=== PATIENT | female | born 1960 | race African-American/Black ===

== ENCOUNTER 2016-11-01 10:45 | Inpatient (IN) | payer OTHER ==
[2016-11-01 11:20] VITALS: BMI 27.9
--- NOTE | 2016-11-01 13:16 | HP ---
CIWA Score - CIWA Score Nausea/Vomitin Muscle Tremors: 4-Moderate,w/Arms Extend Anxiety: 4-Mod. Anxious/Guarded Agitation: 3 Paroxysmal Sweats: 1-Minimal Palms Moist Orientation: 0-Oriented Tacttile Disturbances: 3-Moderate Itch/Numb/Burn Auditory Disturbances: 0-None Visual Disturbances: 0-None Headache: 0-None Present CIWA-Ar Total Score: 18 Admission ROS BHS - HPI Chief Complaint: DETOX TX FOR ALCOHOL DEPENDENCE Allergies/Adverse Reactions: Allergies Allergy/AdvReac Type Severity Reaction Status Date / Time No Known Allergies Allergy Verified 11/01/16 11:37 History of Present Illness: 56 Y/O AA/FEMALE WITH A HX OF ALCOHOL AND COCAINE DEPENDENCE SEEKING DETOX TX Exam Limitations: No Limitations - Ebola screening Have you traveled outside of the country in the last 21 days: No Have you had contact with anyone from an Ebola affected area: No Have you been sick,other than usual withdrawal symptoms: No Do you have a fever: No - Review of Systems Constitutional: Chills, Loss of Appetite, Night Sweats, Changes in sleep, Unintentional Wgt. Loss EENT: reports: Blurred Vision (WEARS GLASSES), Tearing, Nose Congestion, Dental Problems (MISSING TEETH) Respiratory: reports: Shortness of Breath (HX ASTHMA), Wheezing Cardiac: reports: Lightheadedness GI: reports: Diarrhea, Nausea, Poor Appetite, Vomiting, Abdominal cramping : reports: No Symptoms Reported Musculoskeletal: reports: Back Pain, Joint Pain, Muscle Pain Integumentary: reports: Dryness Neuro: reports: Headache, Tremors, Unsteady Gait, Dizziness Endocrine: reports: No Symptoms Reported Hematology: reports: Other (TAKES VIT D) Psychiatric: reports: Orientated x3, Anxious, Depressed Other Systems: Reviewed and Negative Patient History - Patient Medical History Hx Anemia: No Hx Asthma: Yes (ON SYMBICORT AND ALBUTERAL INHALERS) Hx Chronic Obstructive Pulmonary Disease (COPD): No Hx Cardiac Disorders: No Hx Hypertension: Yes (CLONIDINE 0.3 MG PO BID) Hx Hypercholesterolemia: No HX Cerebrovascular Accident: No Hx Seizures: No Hx Diabetes: No Hx Gastrointestinal Disorders: No Hx Genitourinary Disorders: No Hx Sexually Transmitted Disorders: No Hx Renal Disease (ESRD): No Hx Thyroid Disease: No Hx Human Immunodeficiency Virus (HIV): No (NEGATIVE HX;PROPHYLACTIC ATRIPLA BUT HAS NOT BEEN TAKING IT.) Hx Hepatitis C: No Hx Depression: Yes (ON MED) Hx Suicide Attempt: Yes (TO JUMP OFF ROOF 20 YRS AGO;DENIES CURRENT IDEATIONS) Hx Schizophrenia: No - Patient Surgical History Past Surgical History: Yes Hx Cholecystectomy: Yes (1988) Hx Orthopedic Surgery: Yes (R knee sx 2011) Anesthesia Reaction: No - PPD History Previous Implant?: Yes Documented Results: Negative w/o proof Implanted On Prior R Admission?: No PPD to be Administered?: Yes - Reproductive History Patient is a Female of Child Bearing Age (11 -55 yrs old): Yes (POST MENOPAUSAL WOMAN) LMP comment: AT 45 YRS OLD Patient : No - Smoking Cessation Smoking history: Current every day smoker Have you smoked in the past 12 months: Yes Aproximately how many cigarettes per day: 2 Hx Chewing Tobacco Use: No Initiated information on smoking cessation: Yes 'Breaking Loose' booklet given: 11/01/16 - Substance & Tx. History Hx Alcohol Use: Yes (RUM/NICOLLE/BEER) Hx Substance Use: Yes (COCAINE) Substance Use Type: Alcohol, Cocaine Hx Substance Use Treatment: Yes ([facility]) - Substances Abused Alcohol Route: Oral Frequency: Daily Amount used: 1 and 1/2 pints rum/ 3 24 oz beers Age of first use: 9 Date of Last Use: 10/31/16 Cocaine Route: Inhalation Frequency: Daily Amount used: $80-90 Age of first use: 24 Date of Last Use: 11/01/16 Family Disease History - Family Disease History Family Disease History: Diabetes: Mother (HTN;), Other: Mother, Brother (DRUG;ALCOHOL ADDICTION;IN REMISSION.) Admission Physical Exam [facility] - Vital Signs Vital Signs: Vital Signs - 24 hr 11/01/16 11:17 Temperature 97.3 F L Pulse Rate 86 Respiratory 20 Rate Blood Pressure 147/87 - Physical General Appearance: Yes: Moderate Distress, Irritable, Anxious HEENTM: Yes: EOMI, Normocephalic, JUSTICE, Pharynx Normal Respiratory: Yes: Chest Non-Tender, Lungs Clear, Normal Breath Sounds, No Respiratory Distress Neck: Yes: Supple, Trachea in good position Breast: Yes: Breast Exam Deferred Cardiology: Yes: Regular Rhythm, Regular Rate, S1, S2 Abdominal: Yes: Normal Bowel Sounds, Non Tender, Soft Genitourinary: Yes: Other (N/C) Back: Yes: Within Normal Limits Musculoskeletal: Yes: full range of Motion, Gait Steady Extremities: Yes: Normal Range of Motion, Non-Tender Neurological: Yes: solar manufacturer's representative II-XII NML intact, Fully Oriented, Alert Integumentary: Yes: Dry, Warm, Track [place] Lymphatic: Yes: Within Normal Limits - Diagnostic (1) Alcohol dependence with uncomplicated withdrawal Current Visit: Yes Status: Acute (2) Cocaine dependence, uncomplicated Current Visit: Yes Status: Acute (3) Hypertension Current Visit: Yes Status: Chronic Qualifiers: Hypertension type: essential hypertension Qualified Code(s): I10 - Essential (primary) hypertension (4) Asthma Current Visit: Yes Status: Chronic Qualifiers: Asthma severity: mild intermittent Asthma complication type: uncomplicated Qualified Code(s): J45.20 - Mild intermittent asthma, uncomplicated Cleared for Admission BHS - Detox or Rehab [facility] Level of Care: Medically Managed Detox Regimen/Protocol: Librium S Breath Alcohol Content Breath Alcohol Content: 0 Urine Pregancy Test - Result Urine Test Results: Negative- NO Line Present Urine Drug Screen - Results Drug Screen Negative: No Urine Drug Screen Results: SHIVA-Cocaine, BZO-Benzodiazepines
[2016-11-01] MEDS ORDERED: chlordiazePOXIDE HCL 25 MG CAPSULE PO PRN (13:26)
[2016-11-01] MEDS ORDERED: P-EPHED 60MG/TRIPROLIDI 2.5MG TABLET PO PRN (13:26)
[2016-11-01] MEDS ORDERED: MAGNESIUM CITRATE 300 ML BOTTLE PO PRN (13:26)
[2016-11-01] MEDS ORDERED: MAGNESIUM HYDROX 2400MG/30ML ORAL SUSPENSION 30 ML CUP PO PRN (13:26)
[2016-11-01] MEDS ORDERED: IBUPROFEN 400 MG TABLET (FP) PO PRN (13:26)
[2016-11-01] MEDS ORDERED: ACETAMINOPHEN 325 MG TABLET (FP) PO PRN (13:26)
[2016-11-01] MEDS ORDERED: NICOTINE POLACRILEX 2 MG GUM BUC PRN (13:26)
[2016-11-01] MEDS ORDERED: MAG HYDROX/AL HYDROX/SIMETH 30 ML UNIT-DOSE CUP PO PRN (13:26)
[2016-11-01] MEDS ORDERED: guaiFENesin/D-METHORPHAN HB 10 ML UNIT-DOSE CUPS PO PRN (13:26)
[2016-11-01] MEDS ORDERED: LOPERAMIDE HCL 2 MG CAPSULE PO PRN (13:26)
[2016-11-01] MEDS ORDERED: MENTHOL/PHENOL 1 EACH UD MM PRN (13:26)
[2016-11-01] MEDS ORDERED: diphenhydrAMINE HCL 50 MG CAPSULE PO PRN (13:26)
[2016-11-01] MEDS ORDERED: hydrOXYzine PAMOATE 25 MG CAPSULE (FP) PO PRN (13:26)
[2016-11-01] MEDS ORDERED: COLLOIDAL OATMEAL 1 BAR EACH TP PRN (13:29)
[2016-11-01] MEDS ORDERED: chlordiazePOXIDE HCL 25 MG CAPSULE PO ONE (14:07)
[2016-11-01] MEDS: NICOTINE 14 MG/24 HOURS TOPICAL PATCH TD SCH (15:07)
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
[2016-11-01] MEDS: chlordiazePOXIDE HCL 25 MG CAPSULE PO SCH ×2 (17:33→22:11)
[2016-11-01 18:45] LABS: HIV 1 & 2 AB NEGATIVE; HIV 1 AGp24 NEGATIVE
[2016-11-01 19:14] LABS: URINE APPEARANCE CLOUDY; URINE BILIRUBIN NEGATIVE (NEGATIVE); URINE COLOR YELLOW; URINE GLUCOSE (UA) NEGATIVE (NEGATIVE); URINE KETONE NEGATIVE (NEGATIVE); URINE NITRITE NEGATIVE (NEGATIVE); URINE PROTEIN NEGATIVE (NEGATIVE); URINE UROBILINOGEN NEGATIVE E.U./dl (0.2-1.0)
[2016-11-01 19:18] LABS: URINE BLOOD 1+ (NEGATIVE); URINE LEUK ESTERASE 1+ (NEGATIVE)
[2016-11-01] MEDS ORDERED: cloNIDine HCL 0.1 MG TABLET PO SCH (22:00)
[2016-11-01] MEDS ORDERED: ZOLPIDEM TARTRATE 10 MG TABLET (PARK CARE ONLY) PO PRN (22:00)
[2016-11-01] MEDS: cloNIDine HCL 0.1 MG TABLET PO SCH (22:10)
[2016-11-01] MEDS: MONTELUKAST NA 10 MG TABLET PO SCH (22:11)
[2016-11-01] MEDS: BUDESONIDE/FORMETEROL FUMARATE 160/4.5 mcg INHALER IH SCH (22:11)
[2016-11-01] MEDS: THIAMINE HCL 100 MG TABLET (FP) PO SCH (22:12)
[2016-11-01] MEDS: OLANZapine 10 MG TABLET PO SCH (22:12)
[2016-11-01] MEDS: ALBUTEROL SO4 6.7 GM HFA INHALER IH PRN (22:13)
[2016-11-02] MEDS: chlordiazePOXIDE HCL 25 MG CAPSULE PO SCH ×4 (07:14→22:29)
[2016-11-02] MEDS ORDERED: COLLOIDAL OATMEAL 1 BAR EACH TP SCH (10:00)
[2016-11-02 10:02] LABS: MCH 31.1 pg (25.7-33.7); MCHC 33.3 g/dl (32.0-36.0); MEAN CELL VOLUME 93.5 fl (80-96); MEAN PLT VOLUME 9.6 fl (7.5-11.1); PLATELET COUNT 227 K/MM3 (134-434); RDW 15.5 % (11.6-15.6); WHITE BLOOD COUNT 7.7 K/mm3 (4.0-10.0)
[2016-11-02 10:39] LABS: ALBUMIN 3.6 g/dl (3.4-5.0); ALK PHOS 103 U/L (45-117); ANION GAP 9 (8-16); BILIRUBIN,TOTAL 0.6 mg/dL (0.2-1.0); CALCIUM 8.9 mg/dL (8.5-10.1); CO2 27 mmol/L (21-32); COCKROFT - GAULT 94.4605; CREATININE 0.8 mg/dL (0.55-1.02); GLUCOSE,RANDOM 78 mg/dL (74-106); SGOT/AST 39 U/L (15-37); SGPT/ALT 35 U/L (12-78); TOT PROT 7.2 g/dl (6.4-8.2)
--- NOTE | 2016-11-02 10:42 | PN ---
S CIWA - CIWA Score Nausea/Vomitin Muscle Tremors: 2 Anxiety: 3 Agitation: 2 Paroxysmal Sweats: 3 Orientation: 0-Oriented Tacttile Disturbances: 1-Very Mild Itch/Numbness Auditory Disturbances: 0-None Visual Disturbances: 0-None Headache: 0-None Present CIWA-Ar Total Score: 13 S Progress Note (SOAP) Subjective: INTERRUPTED SLEEP, SWEATS, TIRED Vital Signs Temperature 97.3 F L 11/02/16 06:08 Pulse Rate 74 11/02/16 06:08 Respiratory Rate 18 11/02/16 06:08 Blood Pressure 102/69 11/02/16 06:08 O2 Sat by Pulse Oximetry (%) Laboratory Tests 11/01/16 11/01/16 11/02/16 12:15 15:00 06:00 WBC 7.7 RBC 4.38 Hgb 13.6 Hct 41.0 MCV 93.5 MCHC 33.3 RDW 15.5 Plt Count 227 MPV 9.6 Sodium Potassium Chloride Urine Color Yellow Urine Appearance Cloudy Urine pH 5.0 Ur Specific [place] 1.015 Urine Protein Negative Urine Glucose (UA) Negative Urine Ketones Negative Urine Blood 1+ H Urine Nitrite Negative Urine Bilirubin Negative Urine Urobilinogen Negative Ur Leukocyte Esterase 1+ H HIV 1&2 Antibody Screen Negative HIV P24 Antigen Negative 11/02/16 06:00 WBC RBC Hgb Hct MCV MCHC RDW Plt Count MPV Sodium 146 H Potassium 4.2 Chloride 110 H Urine Color Urine Appearance Urine pH Ur Specific [place] Urine Protein Urine Glucose (UA) Urine Ketones Urine Blood Urine Nitrite Urine Bilirubin Urine Urobilinogen Ur Leukocyte Esterase HIV 1&2 Antibody Screen HIV P24 Antigen PT AOX3 IN NAD AMBUALTING Objective: 11/02/16 10:40 Vital Signs Temperature 97.3 F L 11/02/16 06:08 Pulse Rate 74 11/02/16 06:08 Respiratory Rate 18 11/02/16 06:08 Blood Pressure 102/69 11/02/16 06:08 O2 Sat by Pulse Oximetry (%) Laboratory Tests 11/01/16 11/01/16 11/02/16 12:15 15:00 06:00 WBC 7.7 RBC 4.38 Hgb 13.6 Hct 41.0 MCV 93.5 MCHC 33.3 RDW 15.5 Plt Count 227 MPV 9.6 Sodium Potassium Chloride Urine Color Yellow Urine Appearance Cloudy Urine pH 5.0 Ur Specific [place] 1.015 Urine Protein Negative Urine Glucose (UA) Negative Urine Ketones Negative Urine Blood 1+ H Urine Nitrite Negative Urine Bilirubin Negative Urine Urobilinogen Negative Ur Leukocyte Esterase 1+ H HIV 1&2 Antibody Screen Negative HIV P24 Antigen Negative 11/02/16 06:00 WBC RBC Hgb Hct MCV MCHC RDW Plt Count MPV Sodium 146 H Potassium 4.2 Chloride 110 H Urine Color Urine Appearance Urine pH Ur Specific [place] Urine Protein Urine Glucose (UA) Urine Ketones Urine Blood Urine Nitrite Urine Bilirubin Urine Urobilinogen Ur Leukocyte Esterase HIV 1&2 Antibody Screen HIV P24 Antigen WITHDRAWAL SX'S Plan: CONT. DETOX INCREASE FLUIDS
[2016-11-02] MEDS: BUDESONIDE/FORMETEROL FUMARATE 160/4.5 mcg INHALER IH SCH ×2 (11:01→22:28)
[2016-11-02] MEDS: cloNIDine HCL 0.1 MG TABLET PO SCH ×2 (11:01→22:30)
[2016-11-02] MEDS: SERTRALINE HCL 50 MG TABLET (FP) PO SCH (11:01)
[2016-11-02] MEDS: PRENATAL VITAMINS W/ FOLIC ACID TABLET (FP) PO SCH (11:01)
[2016-11-02] MEDS: NICOTINE 14 MG/24 HOURS TOPICAL PATCH TD SCH (11:01)
--- NOTE | 2016-11-02 11:22 | EKG ---
Test Reason : Blood Pressure : / mmHG Vent. Rate : 072 BPM Atrial Rate : 072 BPM P-R Int : 152 ms QRS Dur : 082 ms QT Int : 406 ms P-R-T Axes : 054 070 042 degrees QTc Int : 444 ms NORMAL SINUS RHYTHM NORMAL ECG NO PREVIOUS ECGS AVAILABLE Confirmed by YOGESH HWANG, LUIS ([id number]) on 11/02/2016 11:21:55 AM Referred By: Confirmed By:LUIS ZUÑIGA MD
[2016-11-02 15:15] LABS: URINE MUCUS FEW; URINE RBC 3 /hpf (0-3); URINE WBC 22 (3-5)
[2016-11-02 15:31] LABS: CALCIUM OXALATE CRYSTALS MODERATE /hpf (NONE SEEN)
[2016-11-02] MEDS: OLANZapine 10 MG TABLET PO SCH (22:29)
[2016-11-02] MEDS: MONTELUKAST NA 10 MG TABLET PO SCH (22:29)
[2016-11-02] MEDS: THIAMINE HCL 100 MG TABLET (FP) PO SCH (22:29)
[2016-11-02] MEDS: ALBUTEROL SO4 6.7 GM HFA INHALER IH PRN (22:31)
[2016-11-03] MEDS: chlordiazePOXIDE HCL 25 MG CAPSULE PO SCH ×2 (05:43→10:20)
[2016-11-03 06:15] LABS: SICKLE CELL SCREEN NEGATIVE (NEGATIVE)
[2016-11-03] MEDS: cloNIDine HCL 0.1 MG TABLET PO SCH ×2 (10:19→22:34)
[2016-11-03] MEDS: SERTRALINE HCL 50 MG TABLET (FP) PO SCH (10:19)
[2016-11-03] MEDS: BUDESONIDE/FORMETEROL FUMARATE 160/4.5 mcg INHALER IH SCH ×2 (10:20→22:35)
[2016-11-03] MEDS: PRENATAL VITAMINS W/ FOLIC ACID TABLET (FP) PO SCH (10:20)
[2016-11-03] MEDS: NICOTINE 14 MG/24 HOURS TOPICAL PATCH TD SCH (10:22)
[2016-11-03] MEDS: chlordiazePOXIDE 5 MG CAPSULE PO SCH ×2 (17:53→22:37)
[2016-11-03] MEDS: OLANZapine 10 MG TABLET PO SCH (22:34)
[2016-11-03] MEDS: MONTELUKAST NA 10 MG TABLET PO SCH (22:35)
[2016-11-03] MEDS: THIAMINE HCL 100 MG TABLET (FP) PO SCH (22:35)
[2016-11-04] MEDS: chlordiazePOXIDE 5 MG CAPSULE PO SCH ×2 (05:32→11:06)
--- NOTE | 2016-11-04 10:18 | PN ---
S CIWA - CIWA Score Nausea/Vomitin-No Nausea/No Vomiting Muscle Tremors: 4-Moderate,w/Arms Extend Anxiety: 3 Agitation: 3 Paroxysmal Sweats: 2 Orientation: 0-Oriented Tacttile Disturbances: 0-None Auditory Disturbances: 0-None Visual Disturbances: 0-None Headache: 0-None Present CIWA-Ar Total Score: 12 BHS Progress Note (SOAP) Subjective: sweats shakes body aches interrupted sleep Objective: Vital Signs - 24 hr 11/03/16 11/03/16 11/03/16 10:53 14:25 18:15 Temperature 97 F L 98 F Pulse Rate 71 71 80 Respiratory 18 18 16 Rate Blood Pressure 122/84 107/67 115/60 11/03/16 11/04/16 11/04/16 21:56 00:30 07:11 Temperature 97.9 F 98.0 F Pulse Rate 73 69 Respiratory 16 18 16 Rate Blood Pressure 113/61 107/73 awake/alert ambulating no acute distress Assessment: 11/03/16 10:17 withdrawal sx Plan: continue detox
--- NOTE | 2016-11-04 10:21 | PN ---
BHS Progress Note (SOAP) Subjective: achy legs sweats Objective: 11/04/16 10:20 Vital Signs Temperature 98.0 F 11/04/16 07:11 Pulse Rate 69 11/04/16 07:11 Respiratory Rate 16 11/04/16 07:11 Blood Pressure 107/73 11/04/16 07:11 O2 Sat by Pulse Oximetry (%) awake/alert ambulating no acute distress Assessment: 11/04/16 10:21 withdrawal sx Plan: continue detox increase fluids motrin/tylenol prn d/c in am
[2016-11-04] MEDS: SERTRALINE HCL 50 MG TABLET (FP) PO SCH (11:06)
[2016-11-04] MEDS: BUDESONIDE/FORMETEROL FUMARATE 160/4.5 mcg INHALER IH SCH ×2 (11:06→22:24)
[2016-11-04] MEDS: PRENATAL VITAMINS W/ FOLIC ACID TABLET (FP) PO SCH (11:06)
[2016-11-04] MEDS: cloNIDine HCL 0.1 MG TABLET PO SCH ×2 (11:07→22:24)
[2016-11-04] MEDS: NICOTINE 14 MG/24 HOURS TOPICAL PATCH TD SCH (11:07)
[2016-11-04] MEDS: chlordiazePOXIDE HCL 10 MG CAPSULE PO SCH ×2 (17:09→22:24)
[2016-11-04] MEDS: MONTELUKAST NA 10 MG TABLET PO SCH (22:24)
[2016-11-04] MEDS: OLANZapine 10 MG TABLET PO SCH (22:25)
[2016-11-04] MEDS: THIAMINE HCL 100 MG TABLET (FP) PO SCH (22:25)
[2016-11-05] MEDS: chlordiazePOXIDE HCL 10 MG CAPSULE PO SCH (05:33)
--- NOTE | 2016-11-05 08:36 | DS ---
[facility] Detox Discharge Summary Admission Date: 11/01/16 Discharge Date: 11/05/16 - History Present History: Alcohol Dependence, Cocaine Dependence - Physical Exam Results Vital Signs: Vital Signs Temperature 97.7 F 11/05/16 06:00 Pulse Rate 83 11/05/16 06:00 Respiratory Rate 18 11/05/16 06:00 Blood Pressure 125/73 11/05/16 06:00 O2 Sat by Pulse Oximetry (%) - Treatment Hospital Course: Detox Protocol Followed, Detoxed Safely, Responded well, Discharged Condition Good, Rehab Referral Accepted - Medication Discharge Medications: Ambulatory Orders Albuterol Sulfate Inhaler - [Ventolin Hfa Inhaler -] 2 inh PO Q4H 11/01/16 Budesonide/Formeterol Fumarate [SYMBICORT 160/4.5mcg -] 2 inh PO BID 11/01/16 Clonidine HCl [Catapres -] 0.3 mg PO BID 11/01/16 Montelukast Na [Singulair -] 10 mg PO HS 11/01/16 Olanzapine [Zyprexa -] 10 mg PO DAILY 11/01/16 Sertraline HCl [Zoloft -] 100 mg PO DAILY 11/01/16 Zolpidem Tartrate [Ambien] 10 mg PO HS 11/01/16 - Diagnosis (1) Alcohol dependence with uncomplicated withdrawal Current Visit: Yes Status: Chronic (2) Cocaine dependence, uncomplicated Current Visit: Yes Status: Chronic (3) Insomnia Current Visit: Yes Status: Chronic (4) Nicotine dependence Current Visit: Yes Status: Chronic Qualifiers: Nicotine product type: cigarettes Substance use status: uncomplicated Qualified Code(s): F17.210 - Nicotine dependence, cigarettes, uncomplicated (5) Asthma Current Visit: Yes Status: Chronic Qualifiers: Asthma severity: mild intermittent Asthma complication type: uncomplicated Qualified Code(s): J45.20 - Mild intermittent asthma, uncomplicated (6) Hypertension Current Visit: Yes Status: Chronic Qualifiers: Hypertension type: essential hypertension Qualified Code(s): I10 - Essential (primary) hypertension (7) Schizophrenia Current Visit: Yes Status: Chronic - AMA Did Patient Leave Against Medical Advice: No
[2016-11-05] MEDS: BUDESONIDE/FORMETEROL FUMARATE 160/4.5 mcg INHALER IH SCH (10:23)
[2016-11-05] MEDS: PRENATAL VITAMINS W/ FOLIC ACID TABLET (FP) PO SCH (10:23)
[2016-11-05] MEDS: cloNIDine HCL 0.1 MG TABLET PO SCH (10:23)
[2016-11-05] MEDS: SERTRALINE HCL 50 MG TABLET (FP) PO SCH (10:23)
[2016-11-05 10:59] VITALS: BP 134/85; PULSE 87; TEMP 98.2
== END 2016-11-05 11:08 | disposition other institution (70) | DRG 774 ==
LOC: YASAS 10:45 → Y6N 14:03
PROVIDERS: ADMIT Internal Medicine Addiction Medicine; ATTEND Internal Medicine Addiction Medicine
PROC: HZ2ZZZZ Detoxification Services for Substance Abuse Treatment (ICD-10-PCS; principal; 2016-11-05)
DX: F10.230 Alcohol dependence with withdrawal, uncomplicated (principal); F14.20 Cocaine dependence, uncomplicated; F17.210 Nicotine dependence, cigarettes, uncomplicated; F20.9 Schizophrenia, unspecified; G47.00 Insomnia, unspecified; I10 Essential (primary) hypertension; J45.20 Mild intermittent asthma, uncomplicated
CPT/HCPCS: 36415; 80053; 81003; 81015; 85027; 85660; 86593; 87389; 93005; 93010

== ENCOUNTER 2016-11-05 11:18 | Inpatient (IN) | payer OTHER ==
[2016-11-05 11:50] VITALS: BMI 28.6
[2016-11-05] MEDS ORDERED: P-EPHED 60MG/TRIPROLIDI 2.5MG TABLET PO PRN (13:33)
[2016-11-05] MEDS ORDERED: guaiFENesin/D-METHORPHAN HB 10 ML UNIT-DOSE CUPS PO PRN (13:33)
[2016-11-05] MEDS ORDERED: diphenhydrAMINE HCL 50 MG CAPSULE PO PRN (13:33)
[2016-11-05] MEDS ORDERED: hydrOXYzine PAMOATE 50 MG CAPSULE (FP) PO PRN (13:33)
[2016-11-05] MEDS ORDERED: MAGNESIUM CITRATE 300 ML BOTTLE PO PRN (13:33)
[2016-11-05] MEDS ORDERED: LOPERAMIDE HCL 2 MG CAPSULE PO PRN (13:33)
[2016-11-05] MEDS ORDERED: MENTHOL/PHENOL 1 EACH UD MM PRN (13:33)
[2016-11-05] MEDS ORDERED: ACETAMINOPHEN 325 MG TABLET (FP) PO PRN (13:33)
[2016-11-05] MEDS ORDERED: IBUPROFEN 400 MG TABLET (FP) PO PRN (13:33)
[2016-11-05] MEDS ORDERED: MAGNESIUM HYDROX 2400MG/30ML ORAL SUSPENSION 30 ML CUP PO PRN (13:33)
[2016-11-05] MEDS ORDERED: MAG HYDROX/AL HYDROX/SIMETH 30 ML UNIT-DOSE CUP PO PRN (13:33)
[2016-11-05] MEDS ORDERED: ALBUTEROL SO4 6.7 GM HFA INHALER IH PRN (13:39)
--- NOTE | 2016-11-05 13:39 | HP ---
DEDE HWANG Rehab Assess/Revision - Admission History Admitted to Rehab from: [facility] Date of Admission to Rehab: 11/05/16 - Vital signs Vital Signs: Vital Signs Period Temp Pulse Resp BP Sys/[place] Pulse Ox Last 24 Hr 98.1 F 86 20 93/62 - Findings Detox History & Physical reviewed: Yes Concur with findings: Yes Comments/Additional Findings: for rehab as protocol
[2016-11-05] MEDS ORDERED: TUBERCULIN PPD 5 TU/0.1ML VIAL ID ONE (13:45)
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
[2016-11-05] MEDS ORDERED: PT OWN MED DRAWER 7, Y5N ONE (20:11)
[2016-11-05] MEDS: BUDESONIDE/FORMETEROL FUMARATE 160/4.5 mcg INHALER IH SCH (21:33)
[2016-11-05] MEDS: QUEtiapine FUMARATE 25 MG TABLET (FP) PO SCH (21:34)
[2016-11-05] MEDS: cloNIDine HCL 0.1 MG TABLET PO SCH (21:34)
[2016-11-05] MEDS: MONTELUKAST NA 10 MG TABLET PO SCH (21:34)
[2016-11-05] MEDS: THIAMINE HCL 100 MG TABLET (FP) PO SCH (21:34)
[2016-11-05] MEDS: OLANZapine 10 MG TABLET PO SCH (21:34)
[2016-11-06] MEDS ORDERED: PT OWN MED DRAWER 7, Y5N ONE (08:38)
[2016-11-06] MEDS: PRENATAL VITAMINS W/ FOLIC ACID TABLET (FP) PO SCH (09:40)
[2016-11-06] MEDS: BUDESONIDE/FORMETEROL FUMARATE 160/4.5 mcg INHALER IH SCH ×2 (09:41→21:24)
[2016-11-06] MEDS: SERTRALINE HCL 50 MG TABLET (FP) PO SCH (09:41)
[2016-11-06] MEDS: cloNIDine HCL 0.1 MG TABLET PO SCH ×2 (09:41→21:23)
[2016-11-06] MEDS: QUEtiapine FUMARATE 25 MG TABLET (FP) PO SCH (21:23)
[2016-11-06] MEDS: THIAMINE HCL 100 MG TABLET (FP) PO SCH (21:23)
[2016-11-06] MEDS: OLANZapine 10 MG TABLET PO SCH (21:23)
[2016-11-06] MEDS: MONTELUKAST NA 10 MG TABLET PO SCH (21:23)
[2016-11-07] MEDS: PRENATAL VITAMINS W/ FOLIC ACID TABLET (FP) PO SCH (09:43)
[2016-11-07] MEDS: BUDESONIDE/FORMETEROL FUMARATE 160/4.5 mcg INHALER IH SCH ×2 (09:43→21:29)
[2016-11-07] MEDS: SERTRALINE HCL 50 MG TABLET (FP) PO SCH (09:43)
[2016-11-07] MEDS: cloNIDine HCL 0.1 MG TABLET PO SCH ×2 (09:45→21:28)
[2016-11-07] MEDS: QUEtiapine FUMARATE 25 MG TABLET (FP) PO SCH (21:28)
[2016-11-07] MEDS: OLANZapine 10 MG TABLET PO SCH (21:28)
[2016-11-07] MEDS: THIAMINE HCL 100 MG TABLET (FP) PO SCH (21:28)
[2016-11-07] MEDS: MONTELUKAST NA 10 MG TABLET PO SCH (21:28)
[2016-11-08] MEDS ORDERED: PT OWN MED DRAWER 7, Y5N ONE (08:09)
[2016-11-08] MEDS: cloNIDine HCL 0.1 MG TABLET PO SCH ×2 (09:39→21:25)
[2016-11-08] MEDS: PRENATAL VITAMINS W/ FOLIC ACID TABLET (FP) PO SCH (09:39)
[2016-11-08] MEDS: BUDESONIDE/FORMETEROL FUMARATE 160/4.5 mcg INHALER IH SCH ×2 (09:39→21:26)
[2016-11-08] MEDS: SERTRALINE HCL 50 MG TABLET (FP) PO SCH (09:39)
[2016-11-08] MEDS ORDERED: IBUPROFEN 400 MG TABLET (FP) PO PRN (14:19)
--- NOTE | 2016-11-08 14:22 | PN ---
S Progress Note Note: Pt. fell last night,did not tell staff until today.C/O pain lt. side of abd. Vital Signs - 8 hr 11/08/16 11/08/16 11/08/16 07:09 08:30 09:40 Temperature 97.9 F 97.9 F Pulse Rate 76 76 79 Respiratory 18 18 Rate Blood Pressure 114/76 114/76 104/66 11/08/16 11/08/16 10:30 12:41 Temperature 98 F 97 F L Pulse Rate 87 80 Respiratory 19 18 Rate Blood Pressure 115/69 100/64 Exam : no signs of injury noted. P : KUB & motrin for pain
[2016-11-08] MEDS: LIDOCAINE 5% TOPICAL PATCH TP SCH (15:33)
[2016-11-08] MEDS: MONTELUKAST NA 10 MG TABLET PO SCH (21:25)
[2016-11-08] MEDS: QUEtiapine FUMARATE 25 MG TABLET (FP) PO SCH (21:25)
[2016-11-08] MEDS: THIAMINE HCL 100 MG TABLET (FP) PO SCH (21:25)
[2016-11-08] MEDS: OLANZapine 10 MG TABLET PO SCH (21:25)
[2016-11-09] MEDS: PRENATAL VITAMINS W/ FOLIC ACID TABLET (FP) PO SCH (10:07)
[2016-11-09] MEDS: cloNIDine HCL 0.1 MG TABLET PO SCH ×2 (10:07→21:13)
[2016-11-09] MEDS: LIDOCAINE 5% TOPICAL PATCH TP SCH (10:07)
[2016-11-09] MEDS: SERTRALINE HCL 50 MG TABLET (FP) PO SCH (10:07)
[2016-11-09] MEDS: BUDESONIDE/FORMETEROL FUMARATE 160/4.5 mcg INHALER IH SCH ×2 (10:08→21:13)
[2016-11-09] MEDS ORDERED: PT OWN MED DRAWER 7, Y5N ONE (20:31)
[2016-11-09] MEDS: MONTELUKAST NA 10 MG TABLET PO SCH (21:13)
[2016-11-09] MEDS: THIAMINE HCL 100 MG TABLET (FP) PO SCH (21:13)
[2016-11-09] MEDS: QUEtiapine FUMARATE 25 MG TABLET (FP) PO SCH (21:13)
[2016-11-09] MEDS: OLANZapine 10 MG TABLET PO SCH (21:13)
[2016-11-10] MEDS ORDERED: PT OWN MED DRAWER 7, Y5N ONE (08:36)
[2016-11-10] MEDS: cloNIDine HCL 0.1 MG TABLET PO SCH ×2 (10:04→21:16)
[2016-11-10] MEDS: BUDESONIDE/FORMETEROL FUMARATE 160/4.5 mcg INHALER IH SCH ×2 (10:04→21:17)
[2016-11-10] MEDS: LIDOCAINE 5% TOPICAL PATCH TP SCH (10:04)
[2016-11-10] MEDS: SERTRALINE HCL 50 MG TABLET (FP) PO SCH (10:04)
[2016-11-10] MEDS: PRENATAL VITAMINS W/ FOLIC ACID TABLET (FP) PO SCH (10:04)
[2016-11-10] MEDS ORDERED: COLLOIDAL OATMEAL 1 BAR EACH TP PRN (12:06)
--- NOTE | 2016-11-10 15:56 | PN ---
Psychiatric Progress Note Vital Signs: Vital Signs Period Temp Pulse Resp BP Sys/[place] Pulse Ox Last 24 Hr 98.0 F 82-86 16-18 112-122/70-79 Date of Session: 11/10/16 Chief Complaint:: Progress update HPI: Patient addressed Alcohol dependence ,Cocaine dependence comorbid with Schizophrenia. ROS: Significant for BA,HTN. Current Medications: Active Medications Generic Name Dose Route Start Last Admin Trade Name Freq PRN Reason Stop Dose Admin Acamprosate 666 mg 11/10/16 16:00 Campral - PO TID CRISTINA Acetaminophen 650 mg 11/05/16 13:33 11/07/16 09:45 Tylenol - PO 650 mg Q4H PRN Administration FEVER OR PAIN Al Hydroxide/Mg Hydroxide 30 ml 11/05/16 13:33 Mylanta Oral Suspension - PO Q6H PRN DYSPEPSIA Albuterol Sulfate 2 puff 11/05/16 13:39 Ventolin Hfa Inhaler - IH Q4H PRN ASTHMA Budesonide/Formoterol Fumarate 2 puff 11/05/16 22:00 11/10/16 10:04 Symbicort 160/4.5mcg - IH 2 puff BID CRISTINA Administration Clonidine 0.1 mg 11/05/16 22:00 11/10/16 10:04 Catapres - PO 0.1 mg BID CRISTINA Administration Colloidal Oatmeal 1 applic 11/10/16 12:06 11/10/16 12:44 Aveeno Soap - TP 1 applic DAILY PRN Administration HYGEINE Diphenhydramine HCl 50 mg 11/05/16 13:33 Benadryl - PO HSMR1 PRN FOR ITCHING Eucalyptus/Menthol/Phenol/Sorbitol 1 each 11/05/16 13:33 Cepastat Lozenge - MM Q4H PRN SORE THROAT Guaifenesin 10 ml 11/05/16 13:33 Robitussin Dm - PO Q6H PRN COUGH Hydroxyzine Pamoate 50 mg 11/05/16 13:33 Vistaril - PO Q4H PRN AGITATION Ibuprofen 800 mg 11/08/16 14:19 11/09/16 21:38 Motrin - PO 800 mg Q6H PRN Administration PAIN Lidocaine 1 patch 11/08/16 14:30 11/10/16 10:04 Lidoderm Patch - TP 1 patch DAILY CRISTINA Administration Loperamide HCl 4 mg 11/05/16 13:33 Imodium - PO Q6H PRN DIARRHEA Magnesium Hydroxide 30 ml 11/05/16 13:33 Milk Of Magnesia - PO DAILY PRN CONSTIPATION Montelukast Sodium 10 mg 11/05/16 22:00 11/09/16 21:13 Singulair - PO 10 mg HS CRISTINA Administration Olanzapine 10 mg 11/05/16 22:00 11/09/16 21:13 Zyprexa - PO 10 mg HS CRISTINA Administration Multivit/Folic Acid/Iron 1 tab 11/06/16 10:00 11/10/16 10:04 Vitamins ([facility]jr) - PO 1 tab DAILY CRISTINA Administration Pseudoephedrine/Triprolidine 1 combo 11/05/16 13:33 Actifed - PO TID PRN NASAL CONGESTION Quetiapine Fumarate 25 mg 11/05/16 22:00 11/09/16 21:13 Seroquel - PO 25 mg HS CRISTINA Administration Sertraline HCl 100 mg 11/06/16 10:00 11/10/16 10:04 Zoloft - PO 100 mg DAILY CRISTINA Administration Thiamine HCl 100 mg 11/05/16 22:00 11/09/16 21:13 Vitamin B1 - PO 100 mg HS CRISTINA Administration Current Side Effect: No Lab tests ordered: No Lab tests reviewed: Yes Provider note:: Chart was revuewed,patient was evaluated,treatment plan including medication management has been discussed with the patient.Patient reports good response to Zoloft 100 mg po daily and Seroquel 25 mg po hs. Properties of Campral has been discussed with the patient including side eefcets profile and benefits.Patient agrees to start Campral 333 mg 2 tab po tid. Supportive therapy,psychoeducation has been provided. Total face to face time:: 30 Mental Status Exam - Mental Status Exam Alert and Oriented to: Time, Place, Person Cognitive Function: Grossly Intact Patient Appearance: Well Groomed Mood: Euthymic Affect: Mood Congruent Patient Behavior: Cooperative Speech Pattern: Clear Voice Loudness: Normal Thought Process: Goal Oriented Thought Disorder: Not Present Hallucinations: Denies Suicidal Ideation: Denies Homicidal Ideation: Denies Insight/Judgement: Fair Sleep: Fair Appetite: Good Muscle strength/Tone: Normal Gait/Station: Normal Psychiatric Treatment Plan - Problem List (1) Asthma Current Visit: Yes Qualifiers: Asthma severity: mild intermittent Asthma complication type: uncomplicated Qualified Code(s): J45.20 - Mild intermittent asthma, uncomplicated (2) Cocaine dependence, uncomplicated Current Visit: Yes (3) Hypertension Current Visit: Yes Qualifiers: Hypertension type: essential hypertension Qualified Code(s): I10 - Essential (primary) hypertension (4) Nicotine dependence Current Visit: Yes Qualifiers: Nicotine product type: cigarettes Substance use status: uncomplicated Qualified Code(s): F17.210 - Nicotine dependence, cigarettes, uncomplicated (5) Schizophrenia Current Visit: Yes (6) Alcohol dependence Current Visit: Yes
[2016-11-10] MEDS: ACAMPROSATE CALCIUM 333 MG TABLET.DR PO SCH ×2 (17:42→21:16)
[2016-11-10] MEDS: THIAMINE HCL 100 MG TABLET (FP) PO SCH (21:15)
[2016-11-10] MEDS: OLANZapine 10 MG TABLET PO SCH (21:16)
[2016-11-10] MEDS: QUEtiapine FUMARATE 25 MG TABLET (FP) PO SCH (21:16)
[2016-11-10] MEDS: MONTELUKAST NA 10 MG TABLET PO SCH (21:16)
[2016-11-11] MEDS: ACAMPROSATE CALCIUM 333 MG TABLET.DR PO SCH ×3 (06:08→21:23)
[2016-11-11] MEDS: LIDOCAINE 5% TOPICAL PATCH TP SCH (09:55)
[2016-11-11] MEDS: cloNIDine HCL 0.1 MG TABLET PO SCH ×2 (09:56→21:23)
[2016-11-11] MEDS: PRENATAL VITAMINS W/ FOLIC ACID TABLET (FP) PO SCH (09:56)
[2016-11-11] MEDS: SERTRALINE HCL 50 MG TABLET (FP) PO SCH (09:56)
[2016-11-11] MEDS: BUDESONIDE/FORMETEROL FUMARATE 160/4.5 mcg INHALER IH SCH ×2 (09:57→21:24)
[2016-11-11] MEDS ORDERED: PT OWN MED DRAWER 7, Y5N ONE (09:57)
[2016-11-11] MEDS: OLANZapine 10 MG TABLET PO SCH (21:23)
[2016-11-11] MEDS: QUEtiapine FUMARATE 25 MG TABLET (FP) PO SCH (21:23)
[2016-11-11] MEDS: MONTELUKAST NA 10 MG TABLET PO SCH (21:23)
[2016-11-11] MEDS: THIAMINE HCL 100 MG TABLET (FP) PO SCH (21:24)
[2016-11-12] MEDS: ACAMPROSATE CALCIUM 333 MG TABLET.DR PO SCH (06:07)
[2016-11-12 06:58] VITALS: TEMP 98.2
[2016-11-12] MEDS ORDERED: PT OWN MED DRAWER 7, Y5N ONE (08:39)
[2016-11-12] MEDS: SERTRALINE HCL 50 MG TABLET (FP) PO SCH (09:44)
[2016-11-12] MEDS: cloNIDine HCL 0.1 MG TABLET PO SCH (09:44)
[2016-11-12] MEDS: PRENATAL VITAMINS W/ FOLIC ACID TABLET (FP) PO SCH (09:44)
[2016-11-12] MEDS: LIDOCAINE 5% TOPICAL PATCH TP SCH (09:45)
[2016-11-12] MEDS: BUDESONIDE/FORMETEROL FUMARATE 160/4.5 mcg INHALER IH SCH (09:45)
--- NOTE | 2016-11-12 09:45 | PN ---
Psychiatric Progress Note Vital Signs: Vital Signs Period Temp Pulse Resp BP Sys/[place] Pulse Ox Last 24 Hr 98.2 F 71 18-18 126/85 Date of Session: 11/12/16 Chief Complaint:: Discharge visit HPI: Patient is a 56 y/o AA female who was admitted to [address] on 06/12 to address alcohol dependence,cocaine dependence co-morbid with schizophrenia.Scheduled for discharge on this date. ROS: Patient is alert and fully oriented.No somatic complaints.Review of systems is unremarkable. Current Medications: Active Medications Generic Name Dose Route Start Last Admin Trade Name Freq PRN Reason Stop Dose Admin Acamprosate 666 mg 11/10/16 16:00 11/12/16 06:07 Campral - PO 666 mg TID CRISTINA Administration Acetaminophen 650 mg 11/05/16 13:33 11/07/16 09:45 Tylenol - PO 650 mg Q4H PRN Administration FEVER OR PAIN Al Hydroxide/Mg Hydroxide 30 ml 11/05/16 13:33 Mylanta Oral Suspension - PO Q6H PRN DYSPEPSIA Albuterol Sulfate 2 puff 11/05/16 13:39 Ventolin Hfa Inhaler - IH Q4H PRN ASTHMA Budesonide/Formoterol Fumarate 2 puff 11/05/16 22:00 11/11/16 21:24 Symbicort 160/4.5mcg - IH 2 puff BID CRISTINA Administration Clonidine 0.1 mg 11/05/16 22:00 11/11/16 21:23 Catapres - PO 0.1 mg BID CRISTINA Administration Colloidal Oatmeal 1 applic 11/10/16 12:06 11/10/16 12:44 Aveeno Soap - TP 1 applic DAILY PRN Administration HYGEINE Diphenhydramine HCl 50 mg 11/05/16 13:33 11/11/16 21:23 Benadryl - PO 50 mg HSMR1 PRN Administration FOR ITCHING Eucalyptus/Menthol/Phenol/Sorbitol 1 each 11/05/16 13:33 Cepastat Lozenge - MM Q4H PRN SORE THROAT Guaifenesin 10 ml 11/05/16 13:33 Robitussin Dm - PO Q6H PRN COUGH Hydroxyzine Pamoate 50 mg 11/05/16 13:33 Vistaril - PO Q4H PRN AGITATION Ibuprofen 800 mg 11/08/16 14:19 11/09/16 21:38 Motrin - PO 800 mg Q6H PRN Administration PAIN Lidocaine 1 patch 11/08/16 14:30 11/11/16 09:55 Lidoderm Patch - TP 1 patch DAILY CRISTINA Administration Loperamide HCl 4 mg 11/05/16 13:33 Imodium - PO Q6H PRN DIARRHEA Magnesium Hydroxide 30 ml 11/05/16 13:33 Milk Of Magnesia - PO DAILY PRN CONSTIPATION Montelukast Sodium 10 mg 11/05/16 22:00 11/11/16 21:23 Singulair - PO 10 mg HS CRISTINA Administration Olanzapine 10 mg 11/05/16 22:00 11/11/16 21:23 Zyprexa - PO 10 mg HS CRISTINA Administration Multivit/Folic Acid/Iron 1 tab 11/06/16 10:00 11/11/16 09:56 Vitamins (Sjr) - PO 1 tab DAILY CRISTINA Administration Pseudoephedrine/Triprolidine 1 combo 11/05/16 13:33 Actifed - PO TID PRN NASAL CONGESTION Quetiapine Fumarate 25 mg 11/05/16 22:00 11/11/16 21:23 Seroquel - PO 25 mg HS CRISTINA Administration Sertraline HCl 100 mg 11/06/16 10:00 11/11/16 09:56 Zoloft - PO 100 mg DAILY CRISTINA Administration Thiamine HCl 100 mg 11/05/16 22:00 11/11/16 21:24 Vitamin B1 - PO 100 mg HS CRISTINA Administration Medication(s) Change(s): No changes.Medications reviewed.Scripts are sent to [facility] (located at [address] [place] [address] / [phone]) for zoloft 100 mg po daily (tab # 30) + zyprexa 10 mg po hs (tab # 30) + campral 333 mg po tid (tab # 90).One month supply for each drug.Side effects/benefits are discussed with the patient.Ms Leigh is in agreement with this regimen of medications.No report of adverse effects.Regimen is well tolerated. Current Side Effect: No Lab tests ordered: No Lab tests reviewed: Yes Provider note:: Coverage for Dr Kishkareva (currently unavailable).Chart reviewed.Patient is evaluated.She has addressed her issues and met her short term treatment goals.Ms Leigh is transitioning to outpatient treatment at the [facility] program in [facility].Medical issues were addressed.Patient indicates that she will apply to her daily activities the teachings received at [address] for the maintenance of sobriety.She reports feeling much better,more confident to address challenges related to addictions and current co- morbidities.Ms Leigh has verbalized objectives as follows : adherence to OPD care,compliance with medications,avoidance of triggers,reliance on spiritual values and trust in caregivers.Mental status is stable.See report.Patient is at her baseline.She is ready for discharge as scheduled on this date 11/12/16. Total face to face time:: 35 Mental Status Exam - Mental Status Exam Alert and Oriented to: Time, Place, Person Cognitive Function: Good Patient Appearance: Well Groomed Mood: Hopeful, Euthymic Affect: Appropriate, Normal Range Patient Behavior: Appropriate, Cooperative Speech Pattern: Clear, Appropriate Voice Loudness: Normal Thought Process: Goal Oriented Thought Disorder: Not Present Hallucinations: Denies Suicidal Ideation: Denies Homicidal Ideation: Denies Insight/Judgement: Fair Sleep: Fair Muscle strength/Tone: Normal Gait/Station: Normal Psychiatric Treatment Plan - Problem List (1) Alcohol dependence Current Visit: Yes (2) Cocaine dependence, uncomplicated Current Visit: Yes (3) Schizophrenia Current Visit: Yes (4) Nicotine dependence Current Visit: Yes Qualifiers: Nicotine product type: cigarettes Substance use status: uncomplicated Qualified Code(s): F17.210 - Nicotine dependence, cigarettes, uncomplicated (5) Asthma Current Visit: Yes Qualifiers: Asthma severity: mild intermittent Asthma complication type: uncomplicated Qualified Code(s): J45.20 - Mild intermittent asthma, uncomplicated (6) Hypertension Current Visit: Yes Qualifiers: Hypertension type: essential hypertension Qualified Code(s): I10 - Essential (primary) hypertension
[2016-11-12 10:16] VITALS: BP 136/85; PULSE 80
== END 2016-11-12 10:55 | disposition home or self-care (01) | DRG 772 ==
LOC: YASAS 11:18 → Y3E 11:20
PROVIDERS: ADMIT Psychiatry & Neurology Psychiatry; ATTEND Psychiatry & Neurology Psychiatry
PROC: HZ42ZZZ Group Counseling for Substance Abuse Treatment, Cognitive-Behavioral (ICD-10-PCS; principal; 2016-11-12)
DX: F10.20 Alcohol dependence, uncomplicated (principal); F14.20 Cocaine dependence, uncomplicated; F17.210 Nicotine dependence, cigarettes, uncomplicated; F20.9 Schizophrenia, unspecified; I10 Essential (primary) hypertension; J45.20 Mild intermittent asthma, uncomplicated
CPT/HCPCS: 74000-TC

== ENCOUNTER 2019-12-29 10:09 | Inpatient (IN) | payer OTHER ==
--- NOTE | 2019-12-29 11:44 | BHS.RME ---
Substance Use & Tx History - Substance Use History Alcohol Substance amount: 2 pints of veronique Frequency of use: Daily Substance route: Oral Date of Last Use: 12/29/19 Cocaine-Crack Substance amount: 50$ Frequency of use: Daily Substance route: Smoking Date of Last Use: 12/29/19 - Last Treatment Date of last treatment: 11/05/16 to 11/12/16 Where was last treatment: Rehab Physical/Psych/Mental Status - Behavior General Behavior: Increased activity (restlessness, agitation) Eye Contact: Normal - Cooperativeness Cooperativeness: Cooperative - Thinking Thought Processes: Logical Thought content: Future oriented - Physical Health Problems Is patient presently having any pain?: No Does patient presently have any injuries (include location): No Does patient currently have a fever: No CIWA Nausea/Vomitin-Mild Nausea/No Vomiting Muscle Tremors: 3 Anxiety: 3 Agitation: 2 Paroxysmal Sweats: 1-Minimal Palms Moist Orientation: 0-Oriented Tacttile Disturbances: 1-Very Mild Itch/Numbness Auditory Disturbances: 0-None Visual Disturbances: 0-None Headache: 2-Mild CIWA-Ar Total Score: 13
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
[2019-12-29] MEDS ORDERED: MENTHOL/PHENOL 1 EACH UD MM PRN (12:04)
[2019-12-29] MEDS ORDERED: NICOTINE POLACRILEX 2 MG GUM BUC PRN (12:04)
[2019-12-29] MEDS ORDERED: ACETAMINOPHEN 325 MG TABLET (FP) PO PRN (12:04)
[2019-12-29] MEDS ORDERED: MAG HYDROX/AL HYDROX/SIMETH 30 ML UNIT-DOSE CUP PO PRN (12:04)
[2019-12-29] MEDS ORDERED: chlordiazePOXIDE HCL 25 MG CAPSULE PO PRN (12:04)
[2019-12-29] MEDS ORDERED: ONDANSETRON *ODT* 4 MG TABLET SL ONE (12:04)
[2019-12-29] MEDS ORDERED: MAGNESIUM HYDROX 2400MG/30ML ORAL SUSPENSION 30 ML CUP PO PRN (12:04)
[2019-12-29] MEDS ORDERED: BISMUTH SUBSALICYLATE 524 MG/30 ML UD PO PRN (12:04)
[2019-12-29] MEDS ORDERED: IBUPROFEN 400 MG TABLET (FP) PO PRN (12:04)
[2019-12-29] MEDS ORDERED: MAGNESIUM CITRATE 300 ML BOTTLE PO PRN (12:04)
[2019-12-29 12:21] VITALS: BMI 29.0
[2019-12-29] MEDS ORDERED: ALBUTEROL SO4 HFA INHALER IH PRN (13:01)
[2019-12-29] MEDS: hydrOXYzine PAMOATE 25 MG CAPSULE (FP) PO SCH ×3 (13:34→22:40)
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
[2019-12-29] MEDS: chlordiazePOXIDE HCL 25 MG CAPSULE PO SCH ×2 (17:13→22:32)
[2019-12-29] MEDS: ACETAMINOPHEN 325 MG TABLET (FP) PO PRN (17:15)
[2019-12-29] MEDS: OLANZapine 10 MG TABLET PO SCH (22:32)
[2019-12-29] MEDS: BUDESONIDE/FORMETEROL FUMARATE 160/4.5 mcg INHALER IH SCH (22:33)
[2019-12-29] MEDS: MELATONIN 5 MG TABLETS PO SCH (22:33)
[2019-12-29] MEDS: cloNIDine HCL 0.1 MG TABLET PO SCH (22:33)
[2019-12-29] MEDS: THIAMINE HCL 100 MG TABLET (FP) PO SCH (22:34)
[2019-12-29] MEDS: METHOCARBAMOL 500 MG TABLET PO PRN (22:37)
[2019-12-30] MEDS: hydrOXYzine PAMOATE 25 MG CAPSULE (FP) PO SCH ×2 (05:49→10:07)
[2019-12-30] MEDS: chlordiazePOXIDE HCL 25 MG CAPSULE PO SCH ×4 (05:49→22:04)
[2019-12-30 09:20] LABS: HEMATOCRIT 38.3 % (32.4-45.2); HEMOGLOBIN 12.6 GM/dL (10.7-15.3); MCHC 32.9 g/dl (32.0-36.0); MEAN CELL VOLUME 94.3 fl (80-96); MEAN PLT VOLUME 8.6 fl (7.5-11.1); PLATELET COUNT 192 K/MM3 (134-434); RBC 4.06 M/mm3 (3.60-5.2); RDW 15.6 % (11.6-15.6); WHITE BLOOD COUNT 6.1 K/mm3 (4.0-10.0)
[2019-12-30 09:32] LABS: ALBUMIN 2.8 g/dl (3.4-5.0); BILIRUBIN,TOTAL 0.4 mg/dL (0.2-1); CALCIUM 8.3 mg/dL (8.5-10.1); CREATININE 0.6 mg/dL (0.55-1.3); POTASSIUM 3.8 mmol/L (3.5-5.1); TOT PROT 5.8 g/dl (6.4-8.2)
[2019-12-30] MEDS: NICOTINE 7 MG/24 HOURS TOPICAL PATCH TD SCH (10:06)
[2019-12-30] MEDS: MONTELUKAST NA 10 MG TABLET PO SCH (10:07)
[2019-12-30] MEDS: SERTRALINE HCL 50 MG TABLET (FP) PO SCH (10:07)
[2019-12-30] MEDS: PRENATAL VITAMINS W/ FOLIC ACID TABLET (FP) PO SCH (10:07)
[2019-12-30] MEDS: cloNIDine HCL 0.1 MG TABLET PO SCH ×2 (10:09→22:02)
[2019-12-30] MEDS: BUDESONIDE/FORMETEROL FUMARATE 160/4.5 mcg INHALER IH SCH ×2 (10:11→22:03)
--- NOTE | 2019-12-30 10:52 | PN ---
S CIWA - CIWA Score Nausea/Vomitin-Mild Nausea/No Vomiting Muscle Tremors: 2 Anxiety: 2 Agitation: 1-Slight > Activity Paroxysmal Sweats: 2 Orientation: 0-Oriented Tacttile Disturbances: 0-None Auditory Disturbances: 0-None Visual Disturbances: 2-Mild Sensitivity Headache: 0-None Present CIWA-Ar Total Score: 10 S Progress Note (SOAP) Subjective: 59 years old female admitted on 12/29/19 for alcohol withdrawal sx management treating with librium detox regiment seen by psychiatrist ericka chapin tremor sweating mild restlessness sitting on the edge of the bed eating breakfast alert oriented x 3 Objective: 12/30/19 10:51 Vital Signs - 24 hr 12/29/19 12/29/19 12/29/19 12:18 13:14 17:02 Temperature 98.7 F 97.1 F L 97.8 F Pulse Rate 109 H 98 H 108 H Respiratory 20 18 18 Rate Blood Pressure 148/91 122/83 139/99 O2 Sat by Pulse 99 Oximetry (%) 12/29/19 12/30/19 12/30/19 20:56 01:09 03:30 Temperature 96.8 F L Pulse Rate 102 H Respiratory 18 18 20 Rate Blood Pressure 140/91 O2 Sat by Pulse 96 Oximetry (%) 12/30/19 12/30/19 05:44 08:55 Temperature 97.3 F L 96.9 F L Pulse Rate 79 85 Respiratory 18 18 Rate Blood Pressure 128/92 121/85 O2 Sat by Pulse 97 Oximetry (%) Laboratory Tests 12/30/19 12/30/19 12/30/19 07:35 07:35 07:35 WBC 6.1 RBC 4.06 Hgb 12.6 Hct 38.3 MCV 94.3 MCH 31.0 MCHC 32.9 RDW 15.6 Plt Count 192 MPV 8.6 D Sodium Potassium Chloride Carbon Dioxide Anion Gap BUN Creatinine Est GFR (CKD-EPI)AfAm Est GFR (CKD-EPI)NonAf Random Glucose Calcium Total Bilirubin AST ALT Alkaline Phosphatase Total Protein Albumin Syphilis Serology Non-reactive HIV Ag/Ab Combo Qual Negative 12/30/19 07:35 WBC RBC Hgb Hct MCV MCH MCHC RDW Plt Count MPV Sodium 146 H Potassium 3.8 Chloride 110 H Carbon Dioxide 30 Anion Gap 6 L BUN 17.0 Creatinine 0.6 Est GFR (CKD-EPI)AfAm 115.63 Est GFR (CKD-EPI)NonAf 99.77 Random Glucose 99 Calcium 8.3 L Total Bilirubin 0.4 AST 27 ALT 36 Alkaline Phosphatase 124 H Total Protein 5.8 L Albumin 2.8 L Syphilis Serology HIV Ag/Ab Combo Qual Assessment: 12/30/19 10:52 alcohol withdrawal Plan: librium regiment
[2019-12-30] MEDS: THIAMINE HCL 100 MG TABLET (FP) PO SCH (22:03)
[2019-12-30] MEDS: MELATONIN 5 MG TABLETS PO SCH (22:03)
[2019-12-30] MEDS: OLANZapine 10 MG TABLET PO SCH (22:04)
[2019-12-30] MEDS: ACETAMINOPHEN 325 MG TABLET (FP) PO PRN (22:06)
[2019-12-31] MEDS: chlordiazePOXIDE HCL 25 MG CAPSULE PO SCH ×2 (05:44→10:01)
[2019-12-31] MEDS: NICOTINE 7 MG/24 HOURS TOPICAL PATCH TD SCH (10:00)
[2019-12-31] MEDS: cloNIDine HCL 0.1 MG TABLET PO SCH ×2 (10:01→22:30)
[2019-12-31] MEDS: PRENATAL VITAMINS W/ FOLIC ACID TABLET (FP) PO SCH (10:01)
[2019-12-31] MEDS: BUDESONIDE/FORMETEROL FUMARATE 160/4.5 mcg INHALER IH SCH ×2 (10:01→22:34)
[2019-12-31] MEDS: SERTRALINE HCL 50 MG TABLET (FP) PO SCH (10:01)
[2019-12-31] MEDS: MONTELUKAST NA 10 MG TABLET PO SCH (10:01)
--- NOTE | 2019-12-31 13:12 | PN ---
S CIWA - CIWA Score Nausea/Vomitin-No Nausea/No Vomiting Muscle Tremors: 2 Anxiety: 1-Mildly Anxious Agitation: 1-Slight > Activity Paroxysmal Sweats: No Perspiration Orientation: 0-Oriented Tacttile Disturbances: 1-Very Mild Itch/Numbness Auditory Disturbances: 0-None Visual Disturbances: 2-Mild Sensitivity Headache: 0-None Present CIWA-Ar Total Score: 7 BHS Progress Note (SOAP) Subjective: 59 years old female admitted on 12/29/19 for alcohol withdrawal sx management treating with librium detox regiment ms dumont seems sleepy slow response to verbal command poor eye contact modify librium dosage to meet the need of the patient Objective: 12/31/19 13:22 Vital Signs - 24 hr 12/30/19 12/30/19 12/30/19 13:26 16:33 20:36 Temperature 97.5 F L 97.1 F L 97.1 F L Pulse Rate 90 86 82 Respiratory 18 18 18 Rate Blood Pressure 119/86 136/92 127/84 O2 Sat by Pulse 98 99 Oximetry (%) 12/31/19 12/31/19 12/31/19 00:26 03:23 06:15 Temperature 97.1 F L Pulse Rate 87 Respiratory 18 18 18 Rate Blood Pressure 119/88 O2 Sat by Pulse 98 Oximetry (%) 12/31/19 12/31/19 08:45 13:03 Temperature 97.7 F 97.3 F L Pulse Rate 86 84 Respiratory 18 18 Rate Blood Pressure 101/72 116/83 O2 Sat by Pulse 97 Oximetry (%) Laboratory Tests 12/30/19 12/30/19 12/30/19 07:35 07:35 07:35 WBC 6.1 RBC 4.06 Hgb 12.6 Hct 38.3 MCV 94.3 MCH 31.0 MCHC 32.9 RDW 15.6 Plt Count 192 MPV 8.6 D Sodium Potassium Chloride Carbon Dioxide Anion Gap BUN Creatinine Est GFR (CKD-EPI)AfAm Est GFR (CKD-EPI)NonAf Random Glucose Calcium Total Bilirubin AST ALT Alkaline Phosphatase Total Protein Albumin Syphilis Serology Non-reactive HIV Ag/Ab Combo Qual Negative 12/30/19 07:35 WBC RBC Hgb Hct MCV MCH MCHC RDW Plt Count MPV Sodium 146 H Potassium 3.8 Chloride 110 H Carbon Dioxide 30 Anion Gap 6 L BUN 17.0 Creatinine 0.6 Est GFR (CKD-EPI)AfAm 115.63 Est GFR (CKD-EPI)NonAf 99.77 Random Glucose 99 Calcium 8.3 L Total Bilirubin 0.4 AST 27 ALT 36 Alkaline Phosphatase 124 H Total Protein 5.8 L Albumin 2.8 L Syphilis Serology HIV Ag/Ab Combo Qual lab noted 12/31/19 13:23 Assessment: 12/31/19 13:23 alcohol withdrawal Plan: librium regiment
[2019-12-31 16:57] LABS: EPI CELLS 8 /uL (0-25.1); HYALINE CASTS 1 /uL (0-3.1); PH,URINE 6.5 (5.0-8.0); URINE APPEARANCE CLOUDY; URINE BILIRUBIN NEGATIVE (NEGATIVE); URINE COLOR YELLOW; URINE GLUCOSE (UA) NEGATIVE (NEGATIVE); URINE KETONE NEGATIVE (NEGATIVE); URINE LEUK ESTERASE 3+ (NEGATIVE); URINE NITRITE POSITIVE (NEGATIVE); URINE PROTEIN TRACE (NEGATIVE); URINE RBC 57 /uL (0-23.9); URINE UROBILINOGEN 0.2 mg/dL (0.2-1.0); URINE WBC 1559 /uL (0-25.8)
[2019-12-31] MEDS: chlordiazePOXIDE HCL 10 MG CAPSULE PO SCH ×2 (17:38→22:30)
[2019-12-31] MEDS: OLANZapine 10 MG TABLET PO SCH (22:29)
[2019-12-31] MEDS: MELATONIN 5 MG TABLETS PO SCH (22:30)
[2019-12-31] MEDS: THIAMINE HCL 100 MG TABLET (FP) PO SCH (22:30)
[2020-01-01] MEDS ORDERED: chlordiazePOXIDE HCL 10 MG CAPSULE PO PRN
[2020-01-01] MEDS ORDERED: chlordiazePOXIDE HCL 10 MG CAPSULE PO SCH (05:00)
[2020-01-01] MEDS: chlordiazePOXIDE 5 MG CAPSULE PO SCH ×4 (07:37→22:23)
[2020-01-01] MEDS: cloNIDine HCL 0.1 MG TABLET PO SCH ×2 (10:11→22:22)
[2020-01-01] MEDS: SERTRALINE HCL 50 MG TABLET (FP) PO SCH (10:12)
[2020-01-01] MEDS: MONTELUKAST NA 10 MG TABLET PO SCH (10:12)
[2020-01-01] MEDS: BUDESONIDE/FORMETEROL FUMARATE 160/4.5 mcg INHALER IH SCH ×2 (10:13→22:21)
[2020-01-01] MEDS: PRENATAL VITAMINS W/ FOLIC ACID TABLET (FP) PO SCH (10:13)
[2020-01-01] MEDS: NICOTINE 7 MG/24 HOURS TOPICAL PATCH TD SCH (10:13)
--- NOTE | 2020-01-01 13:36 | PN ---
S CIWA - CIWA Score Nausea/Vomitin-No Nausea/No Vomiting Muscle Tremors: 2 Anxiety: 1-Mildly Anxious Agitation: 1-Slight > Activity Paroxysmal Sweats: No Perspiration Orientation: 0-Oriented Tacttile Disturbances: 0-None Auditory Disturbances: 0-None Visual Disturbances: 0-None Headache: 0-None Present CIWA-Ar Total Score: 4 BHS Progress Note (SOAP) Subjective: 59 years old female admitted on 12/29/19 for alcohol withdrawal sx management treating with librium detox regiment feeling better today less tremor mild restlessness slept through the night Objective: 01/01/20 13:38 Vital Signs - 24 hr 12/31/19 12/31/19 12/31/19 16:51 20:58 21:37 Temperature 97.3 F L 97.3 F L Pulse Rate 93 H 91 H Respiratory 16 16 Rate Blood Pressure 122/81 115/80 O2 Sat by Pulse 96 Oximetry (%) 01/01/20 01/01/20 01/01/20 00:30 07:30 08:53 Temperature 97.3 F L 96.9 F L Pulse Rate 16 L 90 Respiratory 18 80 H 18 Rate Blood Pressure 124/89 122/86 O2 Sat by Pulse 97 Oximetry (%) 01/01/20 12:49 Temperature 97.1 F L Pulse Rate 79 Respiratory 18 Rate Blood Pressure 125/83 O2 Sat by Pulse 99 Oximetry (%) Laboratory Tests 12/29/19 12/30/19 12/30/19 12:45 07:35 07:35 WBC RBC Hgb Hct MCV MCH MCHC RDW Plt Count MPV Sodium Potassium Chloride Carbon Dioxide Anion Gap BUN Creatinine Est GFR (CKD-EPI)AfAm Est GFR (CKD-EPI)NonAf Random Glucose Calcium Total Bilirubin AST ALT Alkaline Phosphatase Total Protein Albumin Urine Color Urine Appearance Urine pH Ur Specific [place] Urine Protein Urine Glucose (UA) Urine Ketones Urine Blood Urine Nitrite Urine Bilirubin Urine Urobilinogen Ur Leukocyte Esterase Urine WBC (Auto) Urine RBC (Auto) Urine Casts (Auto) U Epithel Cells (Auto) Urine Bacteria (Auto) Syphilis Serology Non-reactive COVID-19 (ANAND) Not detected HIV Ag/Ab Combo Qual Negative 12/30/19 12/30/19 12/31/19 07:35 07:35 15:30 WBC 6.1 RBC 4.06 Hgb 12.6 Hct 38.3 MCV 94.3 MCH 31.0 MCHC 32.9 RDW 15.6 Plt Count 192 MPV 8.6 D Sodium 146 H Potassium 3.8 Chloride 110 H Carbon Dioxide 30 Anion Gap 6 L BUN 17.0 Creatinine 0.6 Est GFR (CKD-EPI)AfAm 115.63 Est GFR (CKD-EPI)NonAf 99.77 Random Glucose 99 Calcium 8.3 L Total Bilirubin 0.4 AST 27 ALT 36 Alkaline Phosphatase 124 H Total Protein 5.8 L Albumin 2.8 L Urine Color Yellow Urine Appearance Cloudy Urine pH 6.5 D Ur Specific [place] 1.018 Urine Protein Trace Urine Glucose (UA) Negative Urine Ketones Negative Urine Blood Trace Urine Nitrite Positive H Urine Bilirubin Negative Urine Urobilinogen 0.2 Ur Leukocyte Esterase 3+ H Urine WBC (Auto) 1559 Urine RBC (Auto) 57 Urine Casts (Auto) 1 U Epithel Cells (Auto) 8 Urine Bacteria (Auto) >10,000 Syphilis Serology COVID-19 (ANAND) HIV Ag/Ab Combo Qual uti 01/01/20 13:44 bactrim ds bid x 5 days Assessment: 01/01/20 13:45 alcohol withdrawal uti Plan: librium regiment bactrim ds bid po x 5 days
[2020-01-01] MEDS: SULFAMETHOXAZOLE/TRIMETHOPRIM 800MG/160MG D.S. TABLET PO SCH ×2 (14:08→22:21)
[2020-01-01] MEDS: MELATONIN 5 MG TABLETS PO SCH (22:22)
[2020-01-01] MEDS: OLANZapine 10 MG TABLET PO SCH (22:22)
[2020-01-01] MEDS: THIAMINE HCL 100 MG TABLET (FP) PO SCH (22:22)
[2020-01-01] MEDS: ACETAMINOPHEN 325 MG TABLET (FP) PO PRN (22:24)
[2020-01-02] MEDS ORDERED: chlordiazePOXIDE HCL 10 MG CAPSULE PO SCH (05:00)
[2020-01-02] MEDS: chlordiazePOXIDE 5 MG CAPSULE PO SCH ×2 (07:15→17:23)
--- NOTE | 2020-01-02 09:05 | DS ---
[facility] Detox Discharge Summary Admission Date: 12/29/19 Discharge Date: 01/02/20 - History Present History: Alcohol Dependence - Physical Exam Results Vital Signs: Vital Signs Temperature 97.6 F 01/02/20 06:11 Pulse Rate 72 01/02/20 06:11 Respiratory Rate 18 01/02/20 06:11 Blood Pressure 99/68 01/02/20 06:11 O2 Sat by Pulse Oximetry (%) 97 01/02/20 06:11 - Treatment Hospital Course: Detox Protocol Followed, Detoxed Safely, Responded well, Discharged Condition Good, Rehab Referral Accepted - Medication Discharge Medications: Ambulatory Orders Albuterol Sulfate Inhaler - [Ventolin HFA Inhaler -] 2 inh PO Q4H 11/01/16 Budesonide/Formeterol Fumarate [SYMBICORT 160/4.5mcg -] 2 inh PO BID 11/01/16 Montelukast Na [Singulair -] 10 mg PO DAILY 11/01/16 cloNIDine HCL [Catapres -] 0.3 mg PO BID 11/01/16 Amitriptyline HCl [Elavil -] 25 mg PO HS 12/29/19 Olanzapine [Zyprexa] 20 mg PO HS 12/29/19 Oxycodone HCl 15 mg PO TID 12/29/19 Sertraline HCl [Zoloft] 50 mg PO DAILY 12/29/19 - AMA Did Patient Leave Against Medical Advice: No CIWA Score - CIWA Score Nausea/Vomitin-No Nausea/No Vomiting Muscle Tremors: 2 Anxiety: 0-No Anxiety, at Ease Agitation: 0-Normal Activity Paroxysmal Sweats: No Perspiration Orientation: 0-Oriented Tacttile Disturbances: 0-None Auditory Disturbances: 0-None Visual Disturbances: 0-None Headache: 0-None Present CIWA-Ar Total Score: 2
[2020-01-02] MEDS ORDERED: cloNIDine HCL 0.1 MG TABLET PO SCH (10:00)
[2020-01-02] MEDS: SULFAMETHOXAZOLE/TRIMETHOPRIM 800MG/160MG D.S. TABLET PO SCH ×2 (10:10→22:04)
[2020-01-02] MEDS: PRENATAL VITAMINS W/ FOLIC ACID TABLET (FP) PO SCH (10:10)
[2020-01-02] MEDS: MONTELUKAST NA 10 MG TABLET PO SCH (10:10)
[2020-01-02] MEDS: SERTRALINE HCL 50 MG TABLET (FP) PO SCH (10:10)
[2020-01-02] MEDS: cloNIDine HCL 0.1 MG TABLET PO SCH ×2 (10:10→22:03)
[2020-01-02] MEDS: BUDESONIDE/FORMETEROL FUMARATE 160/4.5 mcg INHALER IH SCH ×2 (10:10→22:07)
--- NOTE | 2020-01-02 10:11 | PN ---
S CIWA - CIWA Score Nausea/Vomitin-No Nausea/No Vomiting Muscle Tremors: None Anxiety: 0-No Anxiety, at Ease Agitation: 0-Normal Activity Paroxysmal Sweats: No Perspiration Orientation: 2-Disoriented Date<2 days Tacttile Disturbances: 0-None Auditory Disturbances: 0-None Visual Disturbances: 0-None Headache: 0-None Present (day of the month) CIWA-Ar Total Score: 2 S Progress Note (SOAP) Subjective: 59 years old female admitted on 12/29/19 for alcohol withdrawal sx management treating with librium detox regiment alert disoriented to days of month walks out the detox unit "to talk to the counselor" escorted back to the unit by security ammonia serum level 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 call [phone] for blood to be drawn discontinue tylenal Objective: 01/02/20 10:09 Vital Signs - 24 hr 01/01/20 01/01/20 01/02/20 12:49 20:54 00:33 Temperature 97.1 F L 97.5 F L Pulse Rate 79 90 Respiratory 18 16 18 Rate Blood Pressure 125/83 126/91 O2 Sat by Pulse 99 100 Oximetry (%) 01/02/20 01/02/20 06:11 08:41 Temperature 97.6 F 96.9 F L Pulse Rate 72 87 Respiratory 18 20 Rate Blood Pressure 99/68 123/95 O2 Sat by Pulse 97 Oximetry (%) Laboratory Tests 12/29/19 12/30/19 12/30/19 12:45 07:35 07:35 WBC RBC Hgb Hct MCV MCH MCHC RDW Plt Count MPV Sodium Potassium Chloride Carbon Dioxide Anion Gap BUN Creatinine Est GFR (CKD-EPI)AfAm Est GFR (CKD-EPI)NonAf Random Glucose Calcium Total Bilirubin AST ALT Alkaline Phosphatase Total Protein Albumin Urine Color Urine Appearance Urine pH Ur Specific [place] Urine Protein Urine Glucose (UA) Urine Ketones Urine Blood Urine Nitrite Urine Bilirubin Urine Urobilinogen Ur Leukocyte Esterase Urine WBC (Auto) Urine RBC (Auto) Urine Casts (Auto) U Epithel Cells (Auto) Urine Bacteria (Auto) Syphilis Serology Non-reactive COVID-19 (ANAND) Not detected HIV Ag/Ab Combo Qual Negative 12/30/19 12/30/19 12/31/19 07:35 07:35 15:30 WBC 6.1 RBC 4.06 Hgb 12.6 Hct 38.3 MCV 94.3 MCH 31.0 MCHC 32.9 RDW 15.6 Plt Count 192 MPV 8.6 D Sodium 146 H Potassium 3.8 Chloride 110 H Carbon Dioxide 30 Anion Gap 6 L BUN 17.0 Creatinine 0.6 Est GFR (CKD-EPI)AfAm 115.63 Est GFR (CKD-EPI)NonAf 99.77 Random Glucose 99 Calcium 8.3 L Total Bilirubin 0.4 AST 27 ALT 36 Alkaline Phosphatase 124 H Total Protein 5.8 L Albumin 2.8 L Urine Color Yellow Urine Appearance Cloudy Urine pH 6.5 D Ur Specific [place] 1.018 Urine Protein Trace Urine Glucose (UA) Negative Urine Ketones Negative Urine Blood Trace Urine Nitrite Positive H Urine Bilirubin Negative Urine Urobilinogen 0.2 Ur Leukocyte Esterase 3+ H Urine WBC (Auto) 1559 Urine RBC (Auto) 57 Urine Casts (Auto) 1 U Epithel Cells (Auto) 8 Urine Bacteria (Auto) >10,000 Syphilis Serology COVID-19 (ANAND) HIV Ag/Ab Combo Qual lab noted uti rule out disorientation due to ammonia / uti Assessment: 01/02/20 10:11 alcohol withdrawal disorientation to day of month Plan: librium regiment ammonia serum level ua
[2020-01-02] MEDS: NICOTINE 7 MG/24 HOURS TOPICAL PATCH TD SCH (10:12)
[2020-01-02] MEDS: LACTULOSE 20 GM/30 ML UDC (FOR ORAL USE ONLY) PO SCH ×2 (17:23→22:04)
--- NOTE | 2020-01-02 18:04 | PN ---
[facility] Progress Note Note: Psychiatry Attending's note (follow-up) : Labs noted. Elevated ammonia level = 131.4 Met with patient earlier today. Moderately sedated. Able to perform ADLs independently. Follows redirections. Executes tasks on demand. Stable mental status. Normal vitals. Well groomed. Medical management (lactulose) : currently in progress. Psychiatric intervention : Olanzapine dose is decreased to 7.5 mg po hs (from 15 mg). With the patient's consent (verbal).
[2020-01-02 21:16] VITALS: PULSE 87
[2020-01-02] MEDS ORDERED: OLANZapine 7.5 MG TABLET PO SCH (22:00)
[2020-01-02] MEDS: METHOCARBAMOL 500 MG TABLET PO PRN (22:03)
[2020-01-02] MEDS: THIAMINE HCL 100 MG TABLET (FP) PO SCH (22:04)
[2020-01-02] MEDS: MELATONIN 5 MG TABLETS PO SCH (22:30)
[2020-01-03 00:05] LABS: EPI CELLS 5 /uL (0-25.1); HYALINE CASTS 1 /uL (0-3.1); URINE APPEARANCE CLEAR; URINE BILIRUBIN NEGATIVE (NEGATIVE); URINE COLOR YELLOW; URINE GLUCOSE (UA) NEGATIVE (NEGATIVE); URINE KETONE NEGATIVE (NEGATIVE); URINE LEUK ESTERASE 1+ (NEGATIVE); URINE NITRITE POSITIVE (NEGATIVE); URINE PROTEIN NEGATIVE (NEGATIVE); URINE UROBILINOGEN 0.2 mg/dL (0.2-1.0); URINE WBC 162 /uL (0-25.8)
[2020-01-03 00:07] LABS: URINE RBC 81.1 /uL (0-23.9)
[2020-01-03 00:08] LABS: URINE BACTERIA 774.3 /uL (0-1359)
[2020-01-03] MEDS ORDERED: chlordiazePOXIDE 5 MG CAPSULE PO ONE (05:00)
[2020-01-03] MEDS ORDERED: chlordiazePOXIDE HCL 10 MG CAPSULE PO ONE ×2 (05:00)
--- NOTE | 2020-01-03 08:49 | DS ---
[facility] Detox Discharge Summary Admission Date: 12/29/19 Discharge Date: 01/03/20 - History Present History: Alcohol Dependence Additional Comments: 59 years old female admitted on 12/29/19 for alcohol withdrawal sx management treated with librium detox regiment exhibits fluctuated mental status walking out the detox unit "looking for ....." ammonia elevation treated with lactulose uti treated with bactrim ds bid x ray indicated pulmonary diffused vasculas congestion physical examination: abdomen distension with shifting dullness dyspnea o2 sat 100 to 95 today jaundice of the eye lids nausea and night sweat rule out chylous acites information provided to ER Dr Menchaca for hepatic inflammation work out may return to [facility] when medically stable Pertinent Past History: time for discharge 58 minutes coordinate with nurse counselor intake staff for ms dumont to ER disposition return to [facility] admission - Physical Exam Results Vital Signs: Vital Signs Temperature 98.1 F 01/03/20 07:37 Pulse Rate 87 01/03/20 07:37 Respiratory Rate 18 01/03/20 07:37 Blood Pressure 106/77 01/03/20 07:37 O2 Sat by Pulse Oximetry (%) 95 01/03/20 07:37 Pertinent Admission Physical Exam Findings: alcohol withdrawal Vital Signs - 24 hr 01/02/20 01/02/20 01/02/20 12:45 16:35 20:34 Temperature 97.8 F 97.3 F L 96.6 F L Pulse Rate 73 83 87 Respiratory 18 18 18 Rate Blood Pressure 101/67 114/77 126/86 O2 Sat by Pulse 96 Oximetry (%) 01/02/20 01/02/20 01/03/20 21:26 23:50 07:37 Temperature 98.1 F Pulse Rate 87 Respiratory 18 Rate Blood Pressure 106/77 O2 Sat by Pulse 97 97 95 Oximetry (%) Laboratory Tests 12/29/19 12/30/19 12/30/19 12:45 07:35 07:35 WBC RBC Hgb Hct MCV MCH MCHC RDW Plt Count MPV Sodium Potassium Chloride Carbon Dioxide Anion Gap BUN Creatinine Est GFR (CKD-EPI)AfAm Est GFR (CKD-EPI)NonAf Random Glucose Calcium Total Bilirubin AST ALT Alkaline Phosphatase Ammonia Total Protein Albumin Urine Color Urine Appearance Urine pH Ur Specific [place] Urine Protein Urine Glucose (UA) Urine Ketones Urine Blood Urine Nitrite Urine Bilirubin Urine Urobilinogen Ur Leukocyte Esterase Urine WBC (Auto) Urine RBC (Auto) Urine Casts (Auto) U Epithel Cells (Auto) Urine Bacteria (Auto) Syphilis Serology Non-reactive COVID-19 (ANAND) Not detected HIV Ag/Ab Combo Qual Negative 12/30/19 12/30/19 12/31/19 07:35 07:35 15:30 WBC 6.1 RBC 4.06 Hgb 12.6 Hct 38.3 MCV 94.3 MCH 31.0 MCHC 32.9 RDW 15.6 Plt Count 192 MPV 8.6 D Sodium 146 H Potassium 3.8 Chloride 110 H Carbon Dioxide 30 Anion Gap 6 L BUN 17.0 Creatinine 0.6 Est GFR (CKD-EPI)AfAm 115.63 Est GFR (CKD-EPI)NonAf 99.77 Random Glucose 99 Calcium 8.3 L Total Bilirubin 0.4 AST 27 ALT 36 Alkaline Phosphatase 124 H Ammonia Total Protein 5.8 L Albumin 2.8 L Urine Color Yellow Urine Appearance Cloudy Urine pH 6.5 D Ur Specific [place] 1.018 Urine Protein Trace Urine Glucose (UA) Negative Urine Ketones Negative Urine Blood Trace Urine Nitrite Positive H Urine Bilirubin Negative Urine Urobilinogen 0.2 Ur Leukocyte Esterase 3+ H Urine WBC (Auto) 1559 Urine RBC (Auto) 57 Urine Casts (Auto) 1 U Epithel Cells (Auto) 8 Urine Bacteria (Auto) >10,000 Syphilis Serology COVID-19 (ANAND) HIV Ag/Ab Combo Qual 01/02/20 01/02/20 10:45 19:00 WBC RBC Hgb Hct MCV MCH MCHC RDW Plt Count MPV Sodium Potassium Chloride Carbon Dioxide Anion Gap BUN Creatinine Est GFR (CKD-EPI)AfAm Est GFR (CKD-EPI)NonAf Random Glucose Calcium Total Bilirubin AST ALT Alkaline Phosphatase Ammonia 131.40 H Total Protein Albumin Urine Color Yellow Urine Appearance Clear Urine pH 8.0 D Ur Specific [place] 1.016 Urine Protein Negative Urine Glucose (UA) Negative Urine Ketones Negative Urine Blood Negative Urine Nitrite Positive H Urine Bilirubin Negative Urine Urobilinogen 0.2 Ur Leukocyte Esterase 1+ H Urine WBC (Auto) 162 Urine RBC (Auto) 81.1 Urine Casts (Auto) 1 U Epithel Cells (Auto) 5 Urine Bacteria (Auto) 774.3 Syphilis Serology COVID-19 (ANAND) HIV Ag/Ab Combo Qual ammonia elevation uti - Treatment Hospital Course: Detox Protocol Followed, Detoxed Safely, Responded well, Rehab Referral Accepted Patient has Accepted a Rehab Referral to: [facility] - Medication Discharge Medications: Ambulatory Orders Albuterol Sulfate Inhaler - [Ventolin HFA Inhaler -] 2 inh PO Q4H 11/01/16 Budesonide/Formeterol Fumarate [SYMBICORT 160/4.5mcg -] 2 inh PO BID 11/01/16 Montelukast Na [Singulair -] 10 mg PO DAILY 11/01/16 cloNIDine HCL [Catapres -] 0.3 mg PO BID 11/01/16 Amitriptyline HCl [Elavil -] 25 mg PO HS 12/29/19 Olanzapine [Zyprexa] 20 mg PO HS 12/29/19 Oxycodone HCl 15 mg PO TID 12/29/19 Sertraline HCl [Zoloft] 50 mg PO DAILY 12/29/19 - Diagnosis (1) Alcohol dependence with uncomplicated withdrawal Current Visit: Yes Status: Acute (2) COPD (chronic obstructive pulmonary disease) Current Visit: Yes Status: Chronic Qualifiers: COPD type: chronic bronchitis Chronic bronchitis type: simple Qualified Code(s): J41.0 - Simple chronic bronchitis (3) Nicotine dependence Current Visit: Yes Status: Acute Qualifiers: Nicotine product type: cigarettes Substance use status: in withdrawal Qualified Code(s): F17.213 - Nicotine dependence, cigarettes, with withdrawal (4) Asthma Current Visit: Yes Status: Chronic Qualifiers: Asthma severity: mild Asthma persistence: intermittent Asthma com plication type: with status asthmaticus Qualified Code(s): J45.22 - Mild intermittent asthma with status asthmaticus (5) Hypertension Current Visit: Yes Status: Chronic Qualifiers: Hypertension type: essential hypertension Qualified Code(s): I10 - Essential (primary) hypertension - AMA Did Patient Leave Against Medical Advice: No CIWA Score - CIWA Score Nausea/Vomitin-Mild Nausea/No Vomiting Muscle Tremors: None Anxiety: 0-No Anxiety, at Ease Agitation: 0-Normal Activity Paroxysmal Sweats: 1-Minimal Palms Moist Orientation: 2-Disoriented Date<2 days Tacttile Disturbances: 0-None Auditory Disturbances: 0-None Visual Disturbances: 0-None Headache: 0-None Present (day of the month) CIWA-Ar Total Score: 4
[2020-01-03] MEDS: LACTULOSE 20 GM/30 ML UDC (FOR ORAL USE ONLY) PO SCH ×2 (09:08→13:17)
[2020-01-03 09:23] VITALS: BP 110/77; TEMP 97.1
[2020-01-03] MEDS: MONTELUKAST NA 10 MG TABLET PO SCH (10:20)
[2020-01-03] MEDS: PRENATAL VITAMINS W/ FOLIC ACID TABLET (FP) PO SCH (10:20)
[2020-01-03] MEDS: cloNIDine HCL 0.1 MG TABLET PO SCH (10:20)
[2020-01-03] MEDS: SULFAMETHOXAZOLE/TRIMETHOPRIM 800MG/160MG D.S. TABLET PO SCH (10:20)
[2020-01-03] MEDS: NICOTINE 7 MG/24 HOURS TOPICAL PATCH TD SCH (10:20)
[2020-01-03] MEDS: SERTRALINE HCL 50 MG TABLET (FP) PO SCH (10:21)
[2020-01-03] MEDS: BUDESONIDE/FORMETEROL FUMARATE 160/4.5 mcg INHALER IH SCH (10:21)
== END 2020-01-03 15:50 | disposition short-term general hospital (02) | DRG 774 ==
LOC: YASAS 10:09 → Y3N 12:42
PROVIDERS: ADMIT Allergy & Immunology; ATTEND Allergy & Immunology
PROC: HZ2ZZZZ Detoxification Services for Substance Abuse Treatment (ICD-10-PCS; principal; 2019-12-29)
DX: F10.230 Alcohol dependence with withdrawal, uncomplicated (principal); F14.20 Cocaine dependence, uncomplicated; F17.213 Nicotine dependence, cigarettes, with withdrawal; F31.9 Bipolar disorder, unspecified; F20.9 Schizophrenia, unspecified; R17 Unspecified jaundice; E72.20 Disorder of urea cycle metabolism, unspecified; G47.00 Insomnia, unspecified; I10 Essential (primary) hypertension; J41.0 Simple chronic bronchitis; J45.20 Mild intermittent asthma, uncomplicated; N39.0 Urinary tract infection, site not specified; Z62.810 Personal history of physical and sexual abuse in childhood; Z90.49 Acquired absence of other specified parts of digestive tract; Z91.5 Personal history of self-harm; Z56.0 Unemployment, unspecified
CPT/HCPCS: 36415; 71046-TC-FY; 80053; 81003; 82140; 85027; 86780; 87389; J0735; Q0162; U0003

== ENCOUNTER 2020-01-03 09:40 | Inpatient (IN) | payer OTHER ==
--- NOTE | 2020-01-03 10:19 | PDOC ---
History of Present Illness - General Stated Complaint: ABD PAIN Time Seen by Provider: 01/03/20 10:10 History Source: Patient Exam Limitations: No Limitations - History of Present Illness Initial Comments: 01/03/20 10:20 HPI 59 YOF with h/o Alcohol and crack dependence, COPD, asthma, hypertension, bipolar disorder, currently in [facility] since 12/29/19 for alcohol w/d on l ibrium detox, presenting with periods of AMS and abdominal pain/distension, a/w SOB and jaundice, nausea. she apparently has been walking around the detox unit and wandering; she is being treated with lactulose for elevated ammonia levels, yesterday at 131; also concurrent UTI, on bactrim BID regimen she was planned for transfer to rehab today. Denies fever, chills, chest pain, SOB, palpitation, dizziness, weakness chronic leg pain/back pain Allergies: None Past Medical History: Alcohol and crack dependence, COPD, asthma, hypertension, bipolar disorder PSH:Surgical history includes lap cholecystectomy and right knee surgery Social history: [facility] detox/ ETOH use. Meds: as documented in EMR Family history: noncontributory PMD: none Review of systems Constitutional: no fevers or chills. No weakness HEENT: no headache or dizziness. No congestion. CVS: no cp or syncope. Resp: +SOB. No cough. Gastrointestinal: +abdominal pain, nausea, and distension. No vomiting, No diarrhea. Genitourinary: no urinary sx, hematuria. MUSCULOSKELETAL: No joint pain and swelling. No neck pain. +chronic back and leg pain. SKIN: no redness or skin changes, no discharge, no rash. No wounds. +jaundice Hematologic: no easy bruising/bleeding. NEUROLOGIC: +AMS. No headache, dizziness, LOC. No weakness, numbness or tingling. Psych: no anxiety or depression Allergic/Immunologic: no allergies All other systems reviewed and negative, or as documented in HPI. Physical exam General: awake and alert, NAD. HEENT: NCAT, PERRL, EOMI, clear conjunctiva, scleral icterus, dry mucus membranes, clear oropharynx, no oral lesions.. Neck: neck supple, FROM Resp: CTAB, normal and even respirations, no respiratory distress CVS: RRR, no murmurs, 2+ peripheral pulses throughout, no peripheral edema Abdomen: soft, +distended abdomen, diffusely tender; no rebound or guarding. no CVAT. Back: nontender, normal inspection and ROM MSK: no edema, JIMENEZ x4, ROM intact. No clubbing or cyanosis. normal bulk and tone. Neuro: alert, oriented appropriately to person time and place. Psych: Calm and cooperative Skin: warm and well perfused, cap refill <2 sec, normal color, no rash or skin discoloration. 01/03/20 10:43 01/03/20 12:25 01/03/20 14:21 Past History - Medical History Allergies/Adverse Reactions: Allergies Allergy/AdvReac Type Severity Reaction Status Date / Time No Known Allergies Allergy Verified 01/03/20 10:29 Home Medications: Ambulatory Orders Albuterol Sulfate Inhaler - [Ventolin HFA Inhaler -] 2 inh PO Q4H 11/01/16 Budesonide/Formeterol Fumarate [SYMBICORT 160/4.5mcg -] 2 inh PO BID 11/01/16 Montelukast Na [Singulair -] 10 mg PO HS 11/01/16 cloNIDine HCL [Catapres -] 0.3 mg PO BID 11/01/16 Amitriptyline HCl [Elavil -] 25 mg PO HS 12/29/19 Olanzapine [Zyprexa] 20 mg PO HS 12/29/19 Sertraline HCl [Zoloft] 50 mg PO HS 12/29/19 Anemia: No Asthma: Yes (on albuterol inhaler) Cardiac Disorders: No CVA: No COPD: Yes Diabetes: No GI Disorders: No Disorders: No HTN: Yes (on med) Hypercholesterolemia: No Kidney Stones: No Seizures: No Thyroid Disease: No - Surgical History Abdominal Surgery: No Appendectomy: No Cardiac Surgery: No Cholecystectomy: Yes (1988) Lung Surgery: No Neurologic Surgery: No Orthopedic Surgery: Yes (R knee sx 2011) - Reproductive History PID: No - Psycho-Social/Smoking History Smoking History: Current every day smoker Have you smoked in the past 12 months: Yes Number of Cigarettes Smoked Daily: 2 'Breaking Loose' booklet given: 12/29/19 Heart Score/ECG Review #1 ECG reviewed & interpreted by me at: 10:20 General ECG Interpretation: Sinus Rhythm, Normal Rate, Normal Intervals 01/03/20 12:51 EKG normal sinus rhythm 83 bpm, no interval abnormalities, narrow QRS, ST and T wave segments and morphology normal. Nonspecific T wave abnormalities ED Treatment Course - LABORATORY CBC & Chemistry Diagram: 01/03/20 10:50 01/03/20 10:50 Medical Decision Making - Medical Decision Making 01/03/20 12:24 Vital Signs Temp Pulse Resp BP Pulse Ox 97.7 F 83 18 114/66 100 01/03/20 10:25 01/03/20 10:25 01/03/20 10:25 01/03/20 10:25 01/03/20 10:25 Differential diagnosis includes hepatic encephalopathy, cirrhosis, liver failure, hepatitis, pancreatitis, electrolyte/metabolic derangements, infection, intra-abdominal pathology, PERC viscus, obstruction, GI bleed Laboratory results are reviewed, no WBC count no anemia, coags are normal. Electrolytes and creatinine are also preserved. Patient does have a increased transaminitis with AST 120 and ALT 110. Ammonia is mildly elevated, yesterday's result was 131. Bili and lactic acidosis is not present. UA does have e/o infection, patient is currently on antibiotics Right upper quadrant ultrasound to evaluate for cholecystitis/retained stones 01/03/20 14:24 RUQ sono_fatty liver, no stones, s/p cholecystectomy. no acute pathology given IV hydration, librium 10mg as part of her detox for etoh w/d no acute symptoms currently neg covid swab on 12/29/19 admit to [facility] hospitalist. admit to Dr Esvin Shaikh. 01/03/20 14:53 01/03/20 14:56 01/03/20 17:01 Discharge - Discharge Information Problems reviewed: Yes Clinical Impression/Diagnosis: Transaminitis, Hepatic encephalopathy Condition: Fair - Admission Yes - Follow up/Referral - Patient Discharge Instructions - Post Discharge Activity
[2020-01-03] MEDS ORDERED: SODIUM CHLORIDE 0.9% 500 ML INFUS.BAG IV ONE (10:20)
[2020-01-03 11:25] LABS: BASO % 1.4 % (0-2.0); EOS % 6.5 % (0-4.5); HEMATOCRIT 38.2 % (32.4-45.2); HEMOGLOBIN 12.7 GM/dL (10.7-15.3); LYMPH % 24.1 % (8-40); MCHC 33.1 g/dl (32.0-36.0); MEAN CELL VOLUME 93.4 fl (80-96); MEAN PLT VOLUME 8.6 fl (7.5-11.1); MONO % 13.4 % (3.8-10.2); NEUT % 54.6 % (42.8-82.8); PLATELET COUNT 177 K/MM3 (134-434); RBC 4.09 M/mm3 (3.60-5.2); RDW 15.7 % (11.6-15.6); WHITE BLOOD COUNT 8.8 K/mm3 (4.0-10.0)
[2020-01-03 11:34] LABS: PROTHROMBIN TIME (PATIENT) 11.8 SEC (9.7-13.0)
[2020-01-03 11:35] LABS: EPI CELLS 4 /uL (0-25.1); HYALINE CASTS 0 /uL (0-3.1); PH,URINE 7.5 (5.0-8.0); URINE APPEARANCE CLEAR; URINE BACTERIA 100 /uL (0-1359); URINE BILIRUBIN NEGATIVE (NEGATIVE); URINE COLOR YELLOW; URINE GLUCOSE (UA) NEGATIVE (NEGATIVE); URINE KETONE NEGATIVE (NEGATIVE); URINE LEUK ESTERASE TRACE (NEGATIVE); URINE NITRITE NEGATIVE (NEGATIVE); URINE PROTEIN NEGATIVE (NEGATIVE); URINE RBC 9 /uL (0-23.9); URINE UROBILINOGEN 0.2 mg/dL (0.2-1.0); URINE WBC 11 /uL (0-25.8)
--- NOTE | 2020-01-03 11:52 | EKG ---
Test Reason : Blood Pressure : / mmHG Vent. Rate : 083 BPM Atrial Rate : 083 BPM P-R Int : 148 ms QRS Dur : 088 ms QT Int : 384 ms P-R-T Axes : 064 062 051 degrees QTc Int : 451 ms POOR DATA QUALITY, INTERPRETATION MAY BE ADVERSELY AFFECTED NORMAL SINUS RHYTHM NORMAL ECG WHEN COMPARED WITH ECG OF 01-NOV-2016 14:14, NO SIGNIFICANT CHANGE WAS FOUND Confirmed by RUTHIE HWANG, LUIS M ([id number]) on 01/03/2020 11:52:40 AM Referred By: Confirmed By:LUIS M HENDRICKS MD
[2020-01-03 11:53] LABS: ALBUMIN 3.2 g/dl (3.4-5.0); BILIRUBIN,TOTAL 0.4 mg/dL (0.2-1); BLOOD UREA NITROGEN 15.7 mg/dL (7-18); CALCIUM 8.6 mg/dL (8.5-10.1); CREATININE 0.8 mg/dL (0.55-1.3); POTASSIUM 4.2 mmol/L (3.5-5.1); TOT PROT 6.5 g/dl (6.4-8.2)
[2020-01-03] MEDS ORDERED: chlordiazePOXIDE HCL 10 MG CAPSULE PO ONE (14:20)
[2020-01-03] MEDS ORDERED: chlordiazePOXIDE 5 MG CAPSULE ONE (14:21)
[2020-01-03] MEDS ORDERED: ALBUTEROL SO4 HFA INHALER IH PRN (17:24)
[2020-01-03 17:56] VITALS: BMI 29.5
[2020-01-03] MEDS ORDERED: LACTULOSE 20 GM/30 ML UDC (FOR ORAL USE ONLY) PO PRN (18:04)
[2020-01-03] MEDS ORDERED: ACETAMINOPHEN 325 MG TABLET (FP) PO ONE (18:12)
--- NOTE | 2020-01-03 18:16 | HP ---
CHIEF COMPLAINT: altered mental status PCP: HISTORY OF PRESENT ILLNESS: Patient is a 59 year old female with past medical history of Alcohol and cocaine dependence, COPD, asthma, hypertension, bipolar disorder, was brought in [facility], where she been since 12/28 for alcohol detox on librium protocol, due to ep isodes of altered mental status, described as patient walking around the unit and wandering. At time of interview, patient answers questions appropriately, but could not recall any episodes of wandering. She reported falling down, initially saying she felt dizzy, and reverted to saying that she just missed a step. No reported episodes of falls by [facility]. Patient was also brought in due to abdominal pain and distension. Patient reported pain in the RUQ/RLQ, sharp, constant, that has been present for years. She denies any nausea, vomiting, and reports at least 3 NBNB bowel movements a day. She was also noted to be more jaundice, hence she was brought to our ED. Patient denies any recent illness, denies fevers, chills, headache, dizziness chest pain, SOB, urinary symptoms. At [facility], patient completed detox protocol, and was being transferred to rehab. SHe was also given lactulose for elevated ammonia levels, that since has trended down. Patient was being treated with Bactrim DS BID, completed 2 days. Repeat UA today showed improvement. ER course was notable for: (1)Abdominal US: s/p cholecystectomy, normal size liver with fatty infiltration vs hepatocellular disease. 1 cm echogenic lesion in the right hepatic lobe that statistically may represent a cavernous hemangioma. Additional images of the right lower quadrant demonstrates no evidence of free fluid or fluid collection. (2) (3) Recent Travel:denies PAST MEDICAL HISTORY: Alcohol and cocaine dependence COPD asthma hypertension bipolar disorder PAST SURGICAL HISTORY: cholecystectomy Right knee surgery Social History: Smokin cigarettes per day Alcohol:1.5 pints of rum/cognac daily Drugs: snorts cocaine Allergies No Known Allergies Allergy (Verified 01/03/20 10:29) HOME MEDICATIONS: Home Medications Medication Instructions Recorded Albuterol Sulfate Inhaler - 2 inh PO Q4H 11/01/16 [Ventolin HFA Inhaler -] Budesonide/Formeterol Fumarate 2 inh PO BID 11/01/16 [SYMBICORT 160/4.5mcg -] Montelukast Na [Singulair -] 10 mg PO HS 11/01/16 cloNIDine HCL [Catapres -] 0.3 mg PO BID 11/01/16 Amitriptyline HCl [Elavil -] 25 mg PO HS 12/29/19 Olanzapine [Zyprexa] 20 mg PO HS 12/29/19 Sertraline HCl [Zoloft] 50 mg PO HS 12/29/19 REVIEW OF SYSTEMS CONSTITUTIONAL: Absent: fever, chills, diaphoresis, generalized weakness, malaise, loss of appetite, weight change HEENT: Absent: rhinorrhea, nasal congestion, throat pain, throat swelling, difficulty swallowing, mouth swelling, ear pain, eye pain, visual changes CARDIOVASCULAR: Absent: chest pain, syncope, palpitations, irregular heart rate, lighth eadedness, peripheral edema RESPIRATORY: Absent: cough, shortness of breath, dyspnea with exertion, orthopnea, wheezing, stridor, hemoptysis GASTROINTESTINAL:abdominal pain Absent: abdominal distension, nausea, vomiting, diarrhea, constipation, melena, hematochezia GENITOURINARY: Absent: dysuria, frequency, urgency, hesitancy, hematuria, flank pain, genital pain MUSCULOSKELETAL: Absent: myalgia, arthralgia, joint swelling, back pain, neck pain SKIN: Absent: rash, itching, pallor HEMATOLOGIC/IMMUNOLOGIC: Absent: easy bleeding, easy bruising, lymphadenopathy, frequent infections ENDOCRINE: Absent: unexplained weight gain, unexplained weight loss, heat intolerance, cold intolerance NEUROLOGIC: Absent: headache, focal weakness or paresthesias, dizziness, unsteady gait, seizure, mental status changes, bladder or bowel incontinence PSYCHIATRIC: Absent: anxiety, depression, suicidal or homicidal ideation, hallucinations. PHYSICAL EXAMINATION Vital Signs - 24 hr 01/03/20 01/03/20 01/03/20 10:25 14:33 16:19 Temperature 97.7 F 98 F 97.8 F Pulse Rate 83 Pulse Rate [ 83 86 Apical] Respiratory 18 18 Rate Blood Pressure 114/66 Blood Pressure 110/86 103/70 [Left Arm] O2 Sat by Pulse 100 100 96 Oximetry (%) 01/03/20 17:05 Temperature 98.3 F Pulse Rate 84 Pulse Rate [ Apical] Respiratory 18 Rate Blood Pressure 128/80 Blood Pressure [Left Arm] O2 Sat by Pulse 97 Oximetry (%) GENERAL: Awake, alert, and fully oriented, in no acute distress. HEAD: Normal with no signs of trauma. EYES: PERRLA EOMI, sclera icteric, conjunctiva clear. EARS, NOSE, THROAT: Dry mucous membranes. NECK: Normal range of motion, supple. LUNGS: Decreased breath sounds on bilateral bases HEART: Regular rate and rhythm, normal S1 and S2 without murmur ABDOMEN: Soft, +RUQ/RLQ tenderness, distended, normoactive bowel sounds. MUSCULOSKELETAL: Normal range of motion at all joints. LOWER EXTREMITIES: 2+ pulses, warm, well-perfused. NEUROLOGICAL: Cranial nerves II-XII intact. Normal speech. PSYCHIATRIC: Cooperative. Good eye contact. Appropriate mood and affect. SKIN: Warm, dry, normal turgor. Laboratory Results - last 24 hr 01/03/20 01/03/20 01/03/20 10:50 10:50 10:50 WBC 8.8 RBC 4.09 Hgb 12.7 Hct 38.2 MCV 93.4 MCH 31.0 MCHC 33.1 RDW 15.7 H Plt Count 177 MPV 8.6 Absolute Neuts (auto) 4.8 Neutrophils % 54.6 Lymphocytes % 24.1 Monocytes % 13.4 H Eosinophils % 6.5 H Basophils % 1.4 Nucleated RBC % 0 PT with INR INR PTT (Actin FS) Sodium 144 Potassium 4.2 Chloride 110 H Carbon Dioxide 31 Anion Gap 4 L BUN 15.7 Creatinine 0.8 Est GFR (CKD-EPI)AfAm 93.53 Est GFR (CKD-EPI)NonAf 80.70 Random Glucose 70 L Lactic Acid Calcium 8.6 Total Bilirubin 0.4 AST 120 H ALT 110 H Alkaline Phosphatase 122 H Ammonia Total Protein 6.5 Albumin 3.2 L Lipase 45 L Urine Color Yellow Urine Appearance Clear Urine pH 7.5 Ur Specific [place] 1.018 Urine Protein Negative Urine Glucose (UA) Negative Urine Ketones Negative Urine Blood Negative Urine Nitrite Negative Urine Bilirubin Negative Urine Urobilinogen 0.2 Ur Leukocyte Esterase Trace Urine WBC (Auto) 11 Urine RBC (Auto) 9 Urine Casts (Auto) 0 U Epithel Cells (Auto) 4 Urine Bacteria (Auto) 100 01/03/20 01/03/20 01/03/20 10:50 10:50 10:50 WBC RBC Hgb Hct MCV MCH MCHC RDW Plt Count MPV Absolute Neuts (auto) Neutrophils % Lymphocytes % Monocytes % Eosinophils % Basophils % Nucleated RBC % PT with INR 11.80 INR 1.00 PTT (Actin FS) 38.0 H Sodium Potassium Chloride Carbon Dioxide Anion Gap BUN Creatinine Est GFR (CKD-EPI)AfAm Est GFR (CKD-EPI)NonAf Random Glucose Lactic Acid 1.7 Calcium Total Bilirubin AST ALT Alkaline Phosphatase Ammonia 66.80 H Total Protein Albumin Lipase Urine Color Urine Appearance Urine pH Ur Specific [place] Urine Protein Urine Glucose (UA) Urine Ketones Urine Blood Urine Nitrite Urine Bilirubin Urine Urobilinogen Ur Leukocyte Esterase Urine WBC (Auto) Urine RBC (Auto) Urine Casts (Auto) U Epithel Cells (Auto) Urine Bacteria (Auto) ASSESSMENT/PLAN: Patient is a 59 year old female with past medical history of Alcohol and cocaine dependence, COPD, asthma, hypertension, bipolar disorder, was brought in [facility], where she been since 12/28 for alcohol detox on librium protocol, due to episodes of altered mental status and abdominal distension. #Abdominal pain/distension -Abdominal US: s/p cholecystectomy, normal size liver with fatty infiltration vs hepatocellular disease. 1 cm echogenic lesion in the right hepatic lobe that statistically may represent a cavernous hemangioma. Additional images of the right lower quadrant demonstrates no evidence of free fluid or fluid collection. -Transaminitis likely from alcohol use -hepatitis serology pending #Altered mental status -unclear source at this time -may be 2/2 hepatic encephalopathy, vs alcohol withdrawal vs psych -will order a head CT -continue Lactulose prn to achieve 4-5 bowel movements a day #Alcohol and cocaine dependence -completed detox at [facility] -will monitor signs of withdrawal #UTI -UA today improved from 2 days ago -continue bactrim -urine cultures pending #COPD/Asthma -not in acute exacerbation -continue Symbicort, Singulair -Albuterol inh prn #HTN -On Clonidine 0.3mg bid -will monitor BP #Bipolar disorder -Continue Sertraline and Olanzapine #FEN -Not on any standing fluids -Electrolytes wnl, routine bmp monitoring -Sodium restricted diet #Prophylaxis -Lovenox 40mg sq daily #Disposition -full code -admit to med surg Visit type - Emergency Visit Emergency Visit: Yes ED Registration Date: 01/03/20 Care time: The patient presented to the Emergency Department on the above date and was hospitalized for further evaluation of their emergent condition. - New Patient This patient is new to me today: No - Critical Care Critical Care patient: No ATTENDING PHYSICIAN STATEMENT I saw and evaluated the patient. I reviewed the resident's note and discussed the case with the resident. I agree with the resident's findings and plan as documented. SUBJECTIVE: OBJECTIVE: ASSESSMENT AND PLAN:
[2020-01-03] MEDS ORDERED: PT OWN MED DRAWER 7, Y5N ONE (21:35)
[2020-01-03] MEDS: SULFAMETHOXAZOLE/TRIMETHOPRIM 800MG/160MG D.S. TABLET PO SCH (22:40)
[2020-01-03] MEDS: LACTULOSE 20 GM/30 ML UDC (FOR ORAL USE ONLY) PO SCH (22:41)
[2020-01-03] MEDS: AMITRIPTYLINE HCL 25 MG TABLET PO SCH (22:41)
[2020-01-03] MEDS: OLANZapine 10 MG TABLET PO SCH (22:41)
[2020-01-03] MEDS: BUDESONIDE/FORMETEROL FUMARATE 160/4.5 mcg INHALER IH SCH (22:42)
[2020-01-03] MEDS: cloNIDine HCL 0.1 MG TABLET PO SCH (22:42)
[2020-01-04] MEDS: LACTULOSE 20 GM/30 ML UDC (FOR ORAL USE ONLY) PO SCH ×3 (06:34→21:21)
--- NOTE | 2020-01-04 07:37 | PN ---
Teaching Attending Note Name of Resident: Jaz Goldstein ATTENDING PHYSICIAN STATEMENT I saw and evaluated the patient. I reviewed the resident's note and discussed the case with the resident. I agree with the resident's findings and plan as documented. SUBJECTIVE: Patient complaint of epigastric pain OBJECTIVE: Vital Signs Period Temp Pulse Resp BP Sys/[place] Pulse Ox Last 24 Hr 97.5 F-98.5 F 70-86 18-18 103-128/66-86 96-100 General: Middle-aged female, comfortable, not in distress HEENT mucous membranes moist, no anemia, no jaundice, PERRLA, no nystagmus Neck: No JVD, supple, no bruit, thyroid palpably normal, normal carotid pulsations. Chest: Nontender, bilateral minimal wheezes CVS: S1-S2 regular no murmur/gallop/rub Abdomen: Epigastric tenderness, nondistended, soft, bowel sounds present. 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 CBC,CMP WBC 8.8 K/mm3 (4.0-10.0) 01/03/20 10:50 RBC 4.09 M/mm3 (3.60-5.2) 01/03/20 10:50 Hgb 12.7 GM/dL (10.7-15.3) 01/03/20 10:50 Hct 38.2 % (32.4-45.2) 01/03/20 10:50 MCV 93.4 fl (80-96) 01/03/20 10:50 MCH 31.0 pg (25.7-33.7) 01/03/20 10:50 MCHC 33.1 g/dl (32.0-36.0) 01/03/20 10:50 RDW 15.7 % (11.6-15.6) H 01/03/20 10:50 Plt Count 177 K/MM3 (134-434) 01/03/20 10:50 MPV 8.6 fl (7.5-11.1) 01/03/20 10:50 Absolute Neuts (auto) 4.8 K/mm3 (1.5-8.0) 01/03/20 10:50 Neutrophils % 54.6 % (42.8-82.8) 01/03/20 10:50 Lymphocytes % 24.1 % (8-40) 01/03/20 10:50 Monocytes % 13.4 % (3.8-10.2) H 01/03/20 10:50 Eosinophils % 6.5 % (0-4.5) H 01/03/20 10:50 Basophils % 1.4 % (0-2.0) 01/03/20 10:50 Nucleated RBC % 0 % (0-0) 01/03/20 10:50 Sodium 144 mmol/L (136-145) 01/03/20 10:50 Potassium 4.2 mmol/L (3.5-5.1) 01/03/20 10:50 Chloride 110 mmol/L (98-107) H 01/03/20 10:50 Carbon Dioxide 31 mmol/L (21-32) 01/03/20 10:50 Anion Gap 4 MMOL/L (8-16) L 01/03/20 10:50 BUN 15.7 mg/dL (7-18) 01/03/20 10:50 Creatinine 0.8 mg/dL (0.55-1.3) 01/03/20 10:50 Est GFR (CKD-EPI)AfAm 93.53 01/03/20 10:50 Est GFR (CKD-EPI)NonAf 80.70 01/03/20 10:50 Random Glucose 70 mg/dL (74-106) L 01/03/20 10:50 Lactic Acid 1.7 mmol/L (0.4-2.0) 01/03/20 10:50 Calcium 8.6 mg/dL (8.5-10.1) 01/03/20 10:50 Total Bilirubin 0.4 mg/dL (0.2-1) 01/03/20 10:50 AST 120 U/L (15-37) H 01/03/20 10:50 ALT 110 U/L (13-61) H 01/03/20 10:50 Alkaline Phosphatase 122 U/L (45-117) H 01/03/20 10:50 Ammonia 66.80 umol/L (11-32) H 01/03/20 10:50 Total Protein 6.5 g/dl (6.4-8.2) 01/03/20 10:50 Albumin 3.2 g/dl (3.4-5.0) L 01/03/20 10:50 Lipase 45 U/L (73-393) L 01/03/20 10:50 Active Medications Albuterol Sulfate (Ventolin 0.083% Nebulizer Soln -) 1 amp NEB Q4H PRN PRN Reason: SHORT OF BREATH/WHEEZING Albuterol/Ipratropium (Duoneb -) 1 amp NEB RQID CRISTINA Amitriptyline HCl (Elavil -) 25 mg PO HS [facility] Last Admin: 01/03/20 22:41 Dose: 25 mg Documented by: Budesonide/Formoterol Fumarate (Symbicort 160/4.5mcg -) 2 puff IH BID [facility] Last Admin: 01/04/20 09:59 Dose: 2 puff Documented by: Clonidine (Catapres -) 0.1 mg PO BID [facility] Last Admin: 01/04/20 11:50 Dose: Not Given Documented by: Enoxaparin Sodium (Lovenox -) 40 mg SQ DAILY [facility] Last Admin: 01/04/20 10:05 Dose: Not Given Documented by: Famotidine (Pepcid -) 20 mg PO DAILY [facility] Last Admin: 01/04/20 11:47 Dose: 20 mg Documented by: Ceftriaxone Sodium 1 gm/ (Dextrose) 50 mls @ 100 mls/hr IVPB DAILY [facility] Last Admin: 01/04/20 11:47 Dose: 100 mls/hr Documented by: Lactated Ringer's (Lactated Ringers Solution) 1,000 ml in 1,000 mls @ 83 mls/hr IV ASDIR [facility] Stop: 01/05/20 00:48 Lactulose (Cephulac (Oral Use)) 20 gm PO TID [facility] Last Admin: 01/04/20 06:34 Dose: 20 gm Documented by: Montelukast Sodium (Singulair -) 10 mg PO DAILY [facility] Last Admin: 01/04/20 09:59 Dose: 10 mg Documented by: Olanzapine (Zyprexa -) 20 mg PO HS [facility] Last Admin: 01/03/20 22:41 Dose: 20 mg Documented by: Prednisone (Deltasone -) 20 mg PO DAILY [facility] Last Admin: 01/04/20 11:50 Dose: 20 mg Documented by: ASSESSMENT AND PLAN:59 year old female history of polysubstance abuse active cocaine, alcohol and smoking lives with also history of seizure affective disorders, COPD, hypertension transferred from [facility] where she was admitted on December 29, 2019 for alcohol detox yesterday patient was agitated and demanding around transfer to [place] for further evaluation, today complaint of epigastric pain Altered mental status: Patient is getting alcohol detox, ammonia level is trending normal, CT head negative, today alert oriented mild confusion no agitation observe clinically, Alcohol withdrawal: Completed alcohol withdrawal protocol continue thiamine Asthma/COPD: Continue Symbicort, Singulair, Ventolin, consider adding prednisone 20 mg daily follow-up BNP level Polysubstance abuse: Completed alcohol withdrawal protocol Bipolar disorder: Continue all home meds UTI: DC Bactrim switch to ceftriaxone follow-up urine culture Epigastric pain: Most likely due to lactulose and gastritis, flat famotidine DVT prophylaxis
[2020-01-04 09:35] LABS: BASO % 0.8 % (0-2.0); EOS % 8.7 % (0-4.5); HEMATOCRIT 38.1 % (32.4-45.2); HEMOGLOBIN 12.6 GM/dL (10.7-15.3); LYMPH % 26.8 % (8-40); MCH 31.1 pg (25.7-33.7); MEAN CELL VOLUME 94.1 fl (80-96); MEAN PLT VOLUME 8.2 fl (7.5-11.1); MONO % 13.4 % (3.8-10.2); NEUT % 50.3 % (42.8-82.8); PLATELET COUNT 188 K/MM3 (134-434); RBC 4.05 M/mm3 (3.60-5.2); RDW 15.6 % (11.6-15.6); WHITE BLOOD COUNT 7.3 K/mm3 (4.0-10.0)
[2020-01-04 09:38] LABS: INR 1.01 (0.83-1.09); PROTHROMBIN TIME (PATIENT) 11.9 SEC (9.7-13.0)
[2020-01-04 09:40] LABS: ACTIVATED PTT 37.1 SECONDS (25.2-36.5)
[2020-01-04] MEDS: ENOXAPARIN NA (PORCINE) 40 MG/0.4 ML DISP.SYRIN SQ SCH ×2 (09:58→10:05)
[2020-01-04] MEDS: BUDESONIDE/FORMETEROL FUMARATE 160/4.5 mcg INHALER IH SCH ×2 (09:59→21:22)
[2020-01-04] MEDS: MONTELUKAST NA 10 MG TABLET PO SCH (09:59)
[2020-01-04 10:12] LABS: POTASSIUM 4.1 mmol/L (3.5-5.1)
[2020-01-04 10:25] LABS: ALBUMIN 3.1 g/dl (3.4-5.0); BILIRUBIN,TOTAL 0.5 mg/dL (0.2-1); BLOOD UREA NITROGEN 15.2 mg/dL (7-18); CALCIUM 8.5 mg/dL (8.5-10.1); CREATININE 0.9 mg/dL (0.55-1.3); MAGNESIUM 2.1 mg/dL (1.8-2.4); PHOSPHOROUS 4.4 mg/dL (2.5-4.9); TOT PROT 6.3 g/dl (6.4-8.2)
[2020-01-04] MEDS ORDERED: ALBUTEROL SO4 0.083% IH SOL 2.5 MG/3 ML VIAL.NEB. NEB PRN (10:51)
[2020-01-04] MEDS ORDERED: ACETAMINOPHEN 325 MG TABLET (FP) PO ONE (10:55)
[2020-01-04] MEDS: SULFAMETHOXAZOLE/TRIMETHOPRIM 800MG/160MG D.S. TABLET PO SCH (11:19)
[2020-01-04] MEDS: cloNIDine HCL 0.1 MG TABLET PO SCH ×3 (11:19→21:22)
[2020-01-04] MEDS ORDERED: cefTRIAXone SODIUM 1 GM VIAL ONE (11:41)
[2020-01-04] MEDS ORDERED: DEXTROSE 5%-WATER - 50 ML IVPB ONE (11:41)
[2020-01-04] MEDS: FAMOTIDINE 20 MG TABLET PO SCH (11:47)
[2020-01-04] MEDS: CEFTRIAXONE 1 GM in DEXTROSE 5%-WATER - 50 ML IVPB SCH (11:47)
[2020-01-04] MEDS: predniSONE 20 MG TABLET (UD) PO SCH (11:50)
[2020-01-04] MEDS ORDERED: LACTATED RINGERS SOLUTION 1,000 ML/1,000 ML INFUS.BAG IV SCH (12:45)
[2020-01-04 13:25] LABS: N-TERMINAL BNP 46.6 pg/ml (5-125)
--- NOTE | 2020-01-04 13:55 | PN ---
Physical Exam: SUBJECTIVE: Patient seen and examined OBJECTIVE: Vital Signs Temperature 98.6 F 01/04/20 11:50 Pulse Rate 88 01/04/20 11:50 Respiratory Rate 20 01/04/20 11:50 Blood Pressure 94/62 01/04/20 11:50 O2 Sat by Pulse Oximetry (%) 96 01/03/20 21:00 GENERAL: Awake, alert, and fully oriented, in no acute distress. HEAD: Normal with no signs of trauma. EYES: PERRLA EOMI, sclera icteric, conjunctiva clear. EARS, NOSE, THROAT: Dry mucous membranes. NECK: Normal range of motion, supple. LUNGS: Decreased breath sounds on bilateral bases HEART: Regular rate and rhythm, normal S1 and S2 without murmur ABDOMEN: Soft, +RUQ/RLQ tenderness, distended, normoactive bowel sounds. MUSCULOSKELETAL: Normal range of motion at all joints. LOWER EXTREMITIES: 2+ pulses, warm, well-perfused. NEUROLOGICAL: Cranial nerves II-XII intact. Normal speech. PSYCHIATRIC: Cooperative. Good eye contact. Appropriate mood and affect. SKIN: Warm, dry, normal turgor. Laboratory Results - last 24 hr 01/04/20 01/04/20 01/04/20 08:08 08:08 08:08 WBC 7.3 RBC 4.05 Hgb 12.6 Hct 38.1 MCV 94.1 MCH 31.1 MCHC 33.0 RDW 15.6 Plt Count 188 MPV 8.2 Absolute Neuts (auto) 3.7 Neutrophils % 50.3 Lymphocytes % 26.8 Monocytes % 13.4 H Eosinophils % 8.7 H Basophils % 0.8 Nucleated RBC % 0 PT with INR 11.90 INR 1.01 PTT (Actin FS) 37.1 H Sodium 144 Potassium 4.1 Chloride 110 H Carbon Dioxide 29 Anion Gap 6 L BUN 15.2 Creatinine 0.9 Est GFR (CKD-EPI)AfAm 81.11 Est GFR (CKD-EPI)NonAf 69.99 POC Glucometer Random Glucose 75 Calcium 8.5 Phosphorus 4.4 Magnesium 2.1 Total Bilirubin 0.5 AST 153 H ALT 149 H Alkaline Phosphatase 120 H Total Protein 6.3 L Albumin 3.1 L Triglycerides 66 Cholesterol 191 Total LDL Cholesterol 94 HDL Cholesterol 84 H TSH 1.40 01/04/20 11:27 WBC RBC Hgb Hct MCV MCH MCHC RDW Plt Count MPV Absolute Neuts (auto) Neutrophils % Lymphocytes % Monocytes % Eosinophils % Basophils % Nucleated RBC % PT with INR INR PTT (Actin FS) Sodium Potassium Chloride Carbon Dioxide Anion Gap BUN Creatinine Est GFR (CKD-EPI)AfAm Est GFR (CKD-EPI)NonAf POC Glucometer 78 Random Glucose Calcium Phosphorus Magnesium Total Bilirubin AST ALT Alkaline Phosphatase Total Protein Albumin Triglycerides Cholesterol Total LDL Cholesterol HDL Cholesterol TSH Active Medications Generic Name Dose Route Start Last Admin Trade Name Freq PRN Reason Stop Dose Admin Albuterol Sulfate 1 amp 01/04/20 10:51 Ventolin 0.083% Nebulizer Soln - NEB Q4H PRN SHORT OF BREATH/WHEEZING Albuterol/Ipratropium 1 amp 01/04/20 12:00 Duoneb - NEB RQID CRISTINA Amitriptyline HCl 25 mg 01/03/20 22:00 01/03/20 22:41 Elavil - PO 25 mg HS CRISTINA Administration Budesonide/Formoterol Fumarate 2 puff 01/03/20 22:00 01/04/20 09:59 Symbicort 160/4.5mcg - IH 2 puff BID CRISTINA Administration Clonidine 0.1 mg 01/04/20 11:15 01/04/20 11:50 Catapres - PO Not Given BID CRISTINA Enoxaparin Sodium 40 mg 01/04/20 10:00 01/04/20 10:05 Lovenox - SQ Not Given DAILY CRISTINA Famotidine 20 mg 01/04/20 11:00 01/04/20 11:47 Pepcid - PO 20 mg DAILY CRISTINA Administration Ceftriaxone Sodium 1 gm/ 50 mls @ 100 mls/hr 01/04/20 10:30 01/04/20 11:47 Dextrose IVPB 100 mls/hr DAILY CRISTINA Administration Lactated Ringer's 1,000 ml in 1,000 mls @ 83 mls/hr 01/04/20 12:45 Lactated Ringers Solution IV 01/05/20 00:48 ASDIR CRISTINA Lactulose 20 gm 01/03/20 22:00 01/04/20 06:34 Cephulac (Oral Use) PO 20 gm TID CRISTINA Administration Montelukast Sodium 10 mg 01/04/20 10:00 01/04/20 09:59 Singulair - PO 10 mg DAILY CRISTINA Administration Olanzapine 20 mg 01/03/20 22:00 01/03/20 22:41 Zyprexa - PO 20 mg HS CRISTINA Administration Prednisone 20 mg 01/04/20 10:30 01/04/20 11:50 Deltasone - PO 20 mg DAILY CRISTINA Administration ASSESSMENT/PLAN: Patient is a 59 year old female with past medical history of Alcohol and cocaine dependence, COPD, asthma, hypertension, bipolar disorder, was brought in [facility], where she been since 12/28 for alcohol detox on librium protocol, due to episodes of altered mental status and abdominal distension. #Abdominal pain -likely 2/2 gastritis -Abdominal US: s/p cholecystectomy, normal size liver with fatty infiltration vs hepatocellular disease. 1 cm echogenic lesion in the right hepatic lobe that statistically may represent a cavernous hemangioma. Additional images of the r ight lower quadrant demonstrates no evidence of free fluid or fluid collection. -Transaminitis likely from alcohol use, will trend LFTs -hepatitis serology pending -Famotidine 20mg daily #Altered mental status -unclear source at this time -may be 2/2 hepatic encephalopathy, vs alcohol withdrawal vs psych -Head CT no acute pathology -continue Lactulose prn to achieve 4-5 bowel movements a day #Alcohol and cocaine dependence -completed detox at [facility] -will monitor signs of withdrawal #UTI -UA today improved from 2 days ago -will switch bactrim to IV Ceftriaxone -Urine cultures pending #COPD/Asthma -continue Symbicort, Singulair -will start short course of Prednisone 20mg daily -ALbuterol neb prn #HTN -On Clonidine 0.3mg bid -will taper down and d/c -will monitor BP #Bipolar disorder -Continue Sertraline and Olanzapine #FEN -Not on any standing fluids -Electrolytes wnl, routine bmp monitoring -Sodium restricted diet #Prophylaxis -Lovenox 40mg sq daily #Disposition -full code -admit to med surg Visit type - Emergency Visit Emergency Visit: Yes ED Registration Date: 01/03/20 Care time: The patient presented to the Emergency Department on the above date and was hospitalized for further evaluation of their emergent condition. - New Patient This patient is new to me today: No - Critical Care Critical Care patient: No ATTENDING PHYSICIAN STATEMENT I saw and evaluated the patient. I reviewed the resident's note and discussed the case with the resident. I agree with the resident's findings and plan as documented. SUBJECTIVE: OBJECTIVE: ASSESSMENT AND PLAN:
[2020-01-04] MEDS ORDERED: IBUPROFEN 400 MG TABLET (FP) PO PRN (14:18)
[2020-01-04] MEDS: ALBUTEROL SO4 HFA INHALER IH PRN ×2 (14:45→18:50)
[2020-01-04] MEDS ORDERED: CELECOXIB 100 MG CAPSULE PO ONE (17:02)
[2020-01-04] MEDS ORDERED: PT OWN MED DRAWER 7, Y5N ONE ×2 (18:11→21:11)
[2020-01-04] MEDS: ALBUTEROL SO4 2.5/IPRATROPIUM 0.5 INH SOL 3 ML VIAL.NEB. NEB SCH (20:50)
[2020-01-04] MEDS: OLANZapine 10 MG TABLET PO SCH (21:21)
[2020-01-04] MEDS: AMITRIPTYLINE HCL 25 MG TABLET PO SCH (21:21)
[2020-01-05] MEDS: LACTULOSE 20 GM/30 ML UDC (FOR ORAL USE ONLY) PO SCH ×3 (05:51→21:13)
[2020-01-05 07:55] LABS: EOS % 4.9 % (0-4.5); HEMATOCRIT 37.7 % (32.4-45.2); HEMOGLOBIN 12.5 GM/dL (10.7-15.3); LYMPH % 24.5 % (8-40); MCH 31.1 pg (25.7-33.7); MCHC 33.1 g/dl (32.0-36.0); MEAN CELL VOLUME 93.9 fl (80-96); MEAN PLT VOLUME 8.1 fl (7.5-11.1); MONO % 16.3 % (3.8-10.2); NEUT % 53.3 % (42.8-82.8); PLATELET COUNT 189 K/MM3 (134-434); RBC 4.02 M/mm3 (3.60-5.2); RDW 15.6 % (11.6-15.6); WHITE BLOOD COUNT 9.2 K/mm3 (4.0-10.0)
[2020-01-05 08:19] LABS: ALBUMIN 3.1 g/dl (3.4-5.0); BILIRUBIN,TOTAL 0.4 mg/dL (0.2-1); BLOOD UREA NITROGEN 17.8 mg/dL (7-18); CALCIUM 8.8 mg/dL (8.5-10.1); CREATININE 0.8 mg/dL (0.55-1.3); POTASSIUM 3.8 mmol/L (3.5-5.1); TOT PROT 6.5 g/dl (6.4-8.2)
[2020-01-05] MEDS: ALBUTEROL SO4 2.5/IPRATROPIUM 0.5 INH SOL 3 ML VIAL.NEB. NEB SCH ×4 (08:32→20:29)
[2020-01-05] MEDS: FAMOTIDINE 20 MG TABLET PO SCH (09:18)
[2020-01-05] MEDS: CEFTRIAXONE 1 GM in DEXTROSE 5%-WATER - 50 ML IVPB SCH (09:18)
[2020-01-05] MEDS: MONTELUKAST NA 10 MG TABLET PO SCH (09:18)
[2020-01-05] MEDS: cloNIDine HCL 0.1 MG TABLET PO SCH ×2 (09:19→21:14)
[2020-01-05] MEDS: ENOXAPARIN NA (PORCINE) 40 MG/0.4 ML DISP.SYRIN SQ SCH (09:19)
[2020-01-05] MEDS: predniSONE 20 MG TABLET (UD) PO SCH (09:20)
[2020-01-05] MEDS: BUDESONIDE/FORMETEROL FUMARATE 160/4.5 mcg INHALER IH SCH ×2 (09:20→21:14)
--- NOTE | 2020-01-05 11:25 | PN ---
Progress Note, Physician Chief Complaint: Patient feels improved no complaint of nausea vomiting, remained afebrile completed 5 days of antibiotic for UTI urine culture shows no growth. History of Present Illness: 59 year old female history of polysubstance abuse active cocaine, alcohol and smoking lives with also history of seizure affective disorders, COPD, hypertension transferred from [facility] where she was admitted on December 29, 2019 for alcohol detox yesterday patient was agitated and demanding around transfer to [facility] for further evaluation, today complaint of epigastric pain, serum lipase normal, ultrasound does not show any hepatobiliary abnormality except for fatty liver, hepatitis panel is negative able to tolerate p.o. - Current Medication List Current Medications: Active Medications Albuterol Sulfate (Ventolin Hfa Inhaler -) 2 puff IH Q4H PRN PRN Reason: SHORT OF BREATH/WHEEZING Last Admin: 01/04/20 18:50 Dose: 2 puff Documented by: Albuterol/Ipratropium (Duoneb -) 1 amp NEB RQID [facility] Last Admin: 01/05/20 08:32 Dose: 1 amp Documented by: Amitriptyline HCl (Elavil -) 25 mg PO HS [facility] Last Admin: 01/04/20 21:21 Dose: 25 mg Documented by: Budesonide/Formoterol Fumarate (Symbicort 160/4.5mcg -) 2 puff IH BID [facility] Last Admin: 01/05/20 09:20 Dose: 2 puff Documented by: Clonidine (Catapres -) 0.1 mg PO BID [facility] Last Admin: 01/05/20 09:19 Dose: 0.1 mg Documented by: Enoxaparin Sodium (Lovenox -) 40 mg SQ DAILY [facility] Last Admin: 01/05/20 09:19 Dose: Not Given Documented by: Famotidine (Pepcid -) 20 mg PO DAILY [facility] Last Admin: 01/05/20 09:18 Dose: 20 mg Documented by: Ceftriaxone Sodium 1 gm/ (Dextrose) 50 mls @ 100 mls/hr IVPB DAILY [facility] Last Admin: 01/05/20 09:18 Dose: Not Given Documented by: Lactulose (Cephulac (Oral Use)) 20 gm PO TID [facility] Last Admin: 01/05/20 05:51 Dose: 20 gm Documented by: Montelukast Sodium (Singulair -) 10 mg PO DAILY [facility] Last Admin: 01/05/20 09:18 Dose: 10 mg Documented by: Olanzapine (Zyprexa -) 20 mg PO HS [facility] Last Admin: 01/04/20 21:21 Dose: 20 mg Documented by: Prednisone (Deltasone -) 20 mg PO DAILY [facility] Last Admin: 01/05/20 09:20 Dose: 20 mg Documented by: - Objective Vital Signs: Vital Signs Temperature 97.7 F 01/05/20 09:31 Pulse Rate 99 H 01/05/20 09:31 Respiratory Rate 01/05/20 09:31 Blood Pressure 130/85 01/05/20 09:31 O2 Sat by Pulse Oximetry (%) 96 01/04/20 21:00 General: Middle-aged female, comfortable, not in distress HEENT mucous membranes moist, no anemia, no jaundice, PERRLA, no nystagmus Neck: No JVD, supple, no bruit, thyroid palpably normal, normal carotid pulsations. Chest: Nontender, bilateral minimal wheezes CVS: S1-S2 regular no murmur/gallop/rub Abdomen: Mild epigastric tenderness, nondistended, soft, bowel sounds present. 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 Labs: CBC, BMP 01/05/20 07:20 01/05/20 07:20 INR, PTT INR 1.01 (0.83-1.09) 01/04/20 08:08 Hepatic Panel Total Bilirubin 0.4 mg/dL (0.2-1) 01/05/20 07:20 AST 202 U/L (15-37) H 01/05/20 07:20 ALT 208 U/L (13-61) H 01/05/20 07:20 Alkaline Phosphatase 139 U/L (45-117) H 01/05/20 07:20 Albumin 3.1 g/dl (3.4-5.0) L 01/05/20 07:20 Assessment/Plan ASSESSMENT AND PLAN: 59-year-old female history of COPD/asthma, obese, bipolar disorder, polysubstance abuse presented with altered mental status from [facility] that she was getting acute alcoholic drink tox 1.Altered mental status due to toxic metabolic encephalopathy: Patient is getting alcohol detox, ammonia level is trending normal, CT head negative, today alert oriented mild confusion no agitation observe clinically, 2. Alcohol withdrawal: Completed alcohol withdrawal protocol continue thiamine 3. Asthma/COPD: Continue Symbicort, Singulair, Ventolin, consider adding prednisone 20 mg daily for 5 days, normal BNP level 4 for. Polysubstance abuse: Completed alcohol withdrawal protocol 5. Bipolar disorder: Continue all home meds 6. UTI: Completed antibiotic for 7 days will DC follow-up clinical course 7. Epigastric pain: Improved most likely due to lactulose and gastritis, continue famotidine 8. Transaminitis: Most likely due to alcohol abuse normal bili, ultrasound is no obstructive lesion will follow-up clinical course and LFTs daily. DVT prophylaxis
[2020-01-05] MEDS ORDERED: LIDOCAINE 5% TOPICAL PATCH TP ONE (16:33)
[2020-01-05] MEDS ORDERED: LIDOCAINE 5% TOPICAL PATCH TP SCH (16:45)
[2020-01-05] MEDS: OLANZapine 10 MG TABLET PO SCH (21:13)
[2020-01-05] MEDS: AMITRIPTYLINE HCL 25 MG TABLET PO SCH (21:14)
[2020-01-05] MEDS: GABAPENTIN 100 MG CAPSULE PO SCH (21:14)
[2020-01-05] MEDS: LIDOCAINE PATCH REMOVAL MC SCH (21:14)
[2020-01-06] MEDS: GABAPENTIN 100 MG CAPSULE PO SCH ×3 (05:57→21:24)
[2020-01-06] MEDS: LACTULOSE 20 GM/30 ML UDC (FOR ORAL USE ONLY) PO SCH ×3 (05:57→21:24)
[2020-01-06] MEDS: ALBUTEROL SO4 2.5/IPRATROPIUM 0.5 INH SOL 3 ML VIAL.NEB. NEB SCH ×4 (08:31→20:38)
--- NOTE | 2020-01-06 08:32 | PN ---
Progress Note, Physician Chief Complaint: Comfortable complaint of mild cough with mucoid sputum History of Present Illness: 59 year old female history of polysubstance abuse active cocaine, alcohol and smoking lives with also history of seizure affective disorders, COPD, hypertension transferred from [facility] where she was admitted on December 29, 2019 for alcohol detox yesterday patient was agitated and demanding around transfer to [place] for further evaluation, today complaint of epigastric pain, serum lipase normal, ultrasound does not show any hepatobiliary abnormality except for fatty liver, hepatitis panel is negative able to tolerate p.o. - Current Medication List Current Medications: Active Medications Albuterol Sulfate (Ventolin Hfa Inhaler -) 2 puff IH Q4H PRN PRN Reason: SHORT OF BREATH/WHEEZING Last Admin: 01/04/20 18:50 Dose: 2 puff Documented by: Albuterol/Ipratropium (Duoneb -) 1 amp NEB RQID [facility] Last Admin: 01/05/20 20:29 Dose: 1 amp Documented by: Amitriptyline HCl (Elavil -) 25 mg PO HS [facility] Last Admin: 01/05/20 21:14 Dose: 25 mg Documented by: Budesonide/Formoterol Fumarate (Symbicort 160/4.5mcg -) 2 puff IH BID [facility] Last Admin: 01/05/20 21:14 Dose: 2 puff Documented by: Clonidine (Catapres -) 0.1 mg PO BID [facility] Last Admin: 01/05/20 21:14 Dose: 0.1 mg Documented by: Enoxaparin Sodium (Lovenox -) 40 mg SQ DAILY [facility] Last Admin: 01/05/20 09:19 Dose: Not Given Documented by: Famotidine (Pepcid -) 20 mg PO DAILY [facility] Last Admin: 01/05/20 09:18 Dose: 20 mg Documented by: Gabapentin (Neurontin -) 100 mg PO TID [facility] Last Admin: 01/06/20 05:57 Dose: 100 mg Documented by: Lactulose (Cephulac (Oral Use)) 20 gm PO TID [facility] Last Admin: 01/06/20 05:57 Dose: 20 gm Documented by: Miscellaneous (Lidoderm Patch Removal) 1 each MC DAILY@2200 [facility] Last Admin: 01/05/20 21:14 Dose: 1 each Documented by: Montelukast Sodium (Singulair -) 10 mg PO DAILY [facility] Last Admin: 01/05/20 09:18 Dose: 10 mg Documented by: Olanzapine (Zyprexa -) [address] [facility] Last Admin: 01/05/20 21:13 Dose: 20 mg Documented by: Prednisone (Deltasone -) 10 mg PO DAILY [facility] - Objective Vital Signs: Vital Signs Temperature 97.8 F 01/06/20 06:00 Pulse Rate 74 01/06/20 06:00 Respiratory Rate 20 01/06/20 06:00 Blood Pressure 159/100 01/06/20 06:00 O2 Sat by Pulse Oximetry (%) 98 01/05/20 21:00 General: Middle-aged female, comfortable, not in distress HEENT mucous membranes moist, no anemia, no jaundice, PERRLA, no nystagmus Neck: No JVD, supple, no bruit, thyroid palpably normal, normal carotid pulsations. Chest: Nontender, bilateral minimal wheezes CVS: S1-S2 regular no murmur/gallop/rub Abdomen: Mild epigastric tenderness, nondistended, soft, bowel sounds present. 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, No gross motor sensory deficit Labs: CBC, BMP 01/06/20 08:29 01/06/20 08:29 Hepatic Panel Total Bilirubin 0.4 mg/dL (0.2-1) 01/06/20 08:29 AST 145 U/L (15-37) H 01/06/20 08:29 ALT 202 U/L (13-61) H 01/06/20 08:29 Alkaline Phosphatase 145 U/L (45-117) H 01/06/20 08:29 Albumin 3.5 g/dl (3.4-5.0) 01/06/20 08:29 Assessment/Plan ASSESSMENT AND PLAN: 59-year-old female history of COPD/asthma, obese, bipolar disorder, polysubstance abuse presented with altered mental status from [facility] that she was getting acute alcoholic drink tox 1.Altered mental status due to toxic metabolic encephalopathy: Patient is getting alcohol detox, ammonia level is trending normal, CT head negative, today alert oriented mild confusion no agitation observe clinically, 2. Alcohol withdrawal: Completed alcohol withdrawal protocol continue thiamine 3. Asthma/COPD: Continue Symbicort, Singulair, Ventolin, continue prednisone 10 mg for total 5 days and Z-Romario, normal BNP level 4 for. Polysubstance abuse: Completed alcohol withdrawal protocol 5. Bipolar disorder: Continue all home meds 6. UTI: Completed antibiotic for 7 days will DC follow-up clinical course 7. Epigastric pain: Improved most likely due to lactulose and gastritis, continue famotidine 8. Transaminitis: Most likely due to alcohol abuse normal bili, ultrasound is no obstructive lesion will follow-up clinical course and LFTs daily. 9. Pain management patient was on narcotic medication February 2019, yesterday complained of back pain and then gabapentin and lidocaine patch DVT prophylaxis
[2020-01-06 08:46] LABS: BASO % 1.5 % (0-2.0); EOS % 5.4 % (0-4.5); HEMATOCRIT 39.3 % (32.4-45.2); LYMPH % 28.3 % (8-40); MCH 30.6 pg (25.7-33.7); MEAN CELL VOLUME 92.8 fl (80-96); MEAN PLT VOLUME 7.9 fl (7.5-11.1); MONO % 11.7 % (3.8-10.2); NEUT % 53.1 % (42.8-82.8); PLATELET COUNT 193 K/MM3 (134-434); RBC 4.24 M/mm3 (3.60-5.2); RDW 15.7 % (11.6-15.6); WHITE BLOOD COUNT 9.3 K/mm3 (4.0-10.0)
[2020-01-06 09:16] LABS: ALBUMIN 3.5 g/dl (3.4-5.0); BILIRUBIN,TOTAL 0.4 mg/dL (0.2-1); BLOOD UREA NITROGEN 12.5 mg/dL (7-18); CALCIUM 8.6 mg/dL (8.5-10.1); CREATININE 0.8 mg/dL (0.55-1.3); TOT PROT 7.2 g/dl (6.4-8.2)
[2020-01-06] MEDS: ENOXAPARIN NA (PORCINE) 40 MG/0.4 ML DISP.SYRIN SQ SCH (09:21)
[2020-01-06] MEDS: MONTELUKAST NA 10 MG TABLET PO SCH (09:21)
[2020-01-06] MEDS: FAMOTIDINE 20 MG TABLET PO SCH (09:21)
[2020-01-06] MEDS: predniSONE 10 MG TABLET (UD) PO SCH (09:21)
[2020-01-06] MEDS: cloNIDine HCL 0.1 MG TABLET PO SCH ×2 (09:24→21:24)
[2020-01-06] MEDS: BUDESONIDE/FORMETEROL FUMARATE 160/4.5 mcg INHALER IH SCH ×2 (09:43→21:25)
[2020-01-06] MEDS ORDERED: PT OWN MED DRAWER 7, Y5N ONE (21:15)
[2020-01-06] MEDS: OLANZapine 10 MG TABLET PO SCH (21:24)
[2020-01-06] MEDS: AMITRIPTYLINE HCL 25 MG TABLET PO SCH (21:24)
[2020-01-06] MEDS: LIDOCAINE PATCH REMOVAL MC SCH (21:25)
[2020-01-07] MEDS: LACTULOSE 20 GM/30 ML UDC (FOR ORAL USE ONLY) PO SCH (06:04)
[2020-01-07] MEDS: GABAPENTIN 100 MG CAPSULE PO SCH (06:04)
--- NOTE | 2020-01-07 07:52 | PN ---
Teaching Attending Note Name of Resident: Jaz Goldstein ATTENDING PHYSICIAN STATEMENT I saw and evaluated the patient. I reviewed the resident's note and discussed the case with the resident. I agree with the resident's findings and plan as documented. SUBJECTIVE: Patient mental status improved OBJECTIVE: Vital Signs Temperature 97.9 F 01/07/20 06:00 Pulse Rate 76 01/07/20 06:00 Respiratory Rate 18 01/07/20 06:00 Blood Pressure 144/78 01/07/20 06:00 O2 Sat by Pulse Oximetry (%) 100 01/06/20 21:00 General: Middle-aged female, comfortable, not in distress HEENT mucous membranes moist, no anemia, no jaundice, PERRLA, no nystagmus Neck: No JVD, supple, no bruit, thyroid palpably normal, normal carotid pulsations. Chest: Nontender, bilateral minimal wheezes CVS: S1-S2 regular no murmur/gallop/rub Abdomen: Mild epigastric tenderness, nondistended, soft, bowel sounds present. 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 1.Altered mental status due to toxic metabolic encephalopathy: Patient is getting alcohol detox, ammonia level is trending normal, CT head negative, mental status improved, now able to tolerate p.o. walking comfortably AO x3 wants to go 2. Alcohol withdrawal: Completed alcohol withdrawal protocol continue thiamine 3. Asthma/COPD: Continue Symbicort, Singulair, Ventolin, continue prednisone 10 mg for total 5 days and Z-Romario, normal BNP level 4 for. Polysubstance abuse: Completed alcohol withdrawal protocol 5. Bipolar disorder: Continue all home meds 6. UTI: Completed antibiotic for 7 days will DC follow-up clinical course 7. Epigastric pain: Improved most likely due to lactulose and gastritis, continue famotidine 8. Transaminitis: Most likely due to alcohol abuse normal bili, ultrasound is no obstructive lesion , trended down ,hepatitis panel is negative 9. Pain management patient was on narcotic medication February 2019, yesterday complained of back pain and then gabapentin and lidocaine patch Disposition: Patient is presented [facility] for rehab at present I do not have any bed patient is stable to be discharged home and she can follow-up with [facility] for rehabilitation. DVT prophylaxis
[2020-01-07] MEDS: ALBUTEROL SO4 2.5/IPRATROPIUM 0.5 INH SOL 3 ML VIAL.NEB. NEB SCH ×2 (08:35→11:33)
[2020-01-07 08:48] LABS: BASO % 0.9 % (0-2.0); EOS % 6.1 % (0-4.5); HEMATOCRIT 37.8 % (32.4-45.2); HEMOGLOBIN 12.5 GM/dL (10.7-15.3); LYMPH % 32.1 % (8-40); MCH 30.7 pg (25.7-33.7); MCHC 33.1 g/dl (32.0-36.0); MEAN CELL VOLUME 92.8 fl (80-96); MONO % 12.4 % (3.8-10.2); NEUT % 48.5 % (42.8-82.8); PLATELET COUNT 206 K/MM3 (134-434); RBC 4.08 M/mm3 (3.60-5.2); RDW 15.7 % (11.6-15.6); WHITE BLOOD COUNT 8.7 K/mm3 (4.0-10.0)
[2020-01-07 09:12] LABS: ALBUMIN 3.3 g/dl (3.4-5.0); BILIRUBIN,TOTAL 0.5 mg/dL (0.2-1); BLOOD UREA NITROGEN 12.2 mg/dL (7-18); CALCIUM 8.7 mg/dL (8.5-10.1); CREATININE 0.8 mg/dL (0.55-1.3); POTASSIUM 3.9 mmol/L (3.5-5.1); TOT PROT 6.8 g/dl (6.4-8.2)
[2020-01-07] MEDS: MONTELUKAST NA 10 MG TABLET PO SCH (10:23)
[2020-01-07] MEDS: ENOXAPARIN NA (PORCINE) 40 MG/0.4 ML DISP.SYRIN SQ SCH (10:23)
[2020-01-07] MEDS: FAMOTIDINE 20 MG TABLET PO SCH (10:23)
[2020-01-07] MEDS: cloNIDine HCL 0.1 MG TABLET PO SCH (10:23)
[2020-01-07] MEDS: predniSONE 10 MG TABLET (UD) PO SCH (10:23)
[2020-01-07] MEDS: BUDESONIDE/FORMETEROL FUMARATE 160/4.5 mcg INHALER IH SCH (10:24)
[2020-01-07 10:55] VITALS: BP 127/88; PULSE 100; TEMP 98
--- NOTE | 2020-01-07 14:14 | DS ---
Physical Exam: SUBJECTIVE: Patient seen and examined. Looks comfortable and is walking around. No acute events overnight. OBJECTIVE: Vital Signs Temperature 98 F 01/07/20 10:54 Pulse Rate 100 H 01/07/20 10:54 Respiratory Rate 20 01/07/20 10:54 Blood Pressure 127/88 01/07/20 10:54 O2 Sat by Pulse Oximetry (%) 100 01/07/20 09:00 PHYSICAL EXAM GENERAL: The patient is awake, alert, and fully oriented, in no acute distress. LUNGS: Breath sounds equal, clear to auscultation bilaterally HEART: Regular rate and rhythm, S1, S2 ABDOMEN: Soft, nontender, nondistended, normoactive bowel sounds NEUROLOGICAL: Cranial nerves II through XII grossly intact. Normal speech, normal gait PSYCH: Normal mood, normal affect. SKIN: Warm, dry, normal turgor LABS Laboratory Results - last 24 hr 01/07/20 01/07/20 01/07/20 08:08 08:08 08:08 WBC 8.7 RBC 4.08 Hgb 12.5 Hct 37.8 MCV 92.8 MCH 30.7 MCHC 33.1 RDW 15.7 H Plt Count 206 MPV 8.0 Absolute Neuts (auto) 4.2 Neutrophils % 48.5 Lymphocytes % 32.1 Monocytes % 12.4 H Eosinophils % 6.1 H Basophils % 0.9 Nucleated RBC % 0 Sodium 144 Potassium 3.9 Chloride 109 H Carbon Dioxide 25 Anion Gap 10 BUN 12.2 Creatinine 0.8 Est GFR (CKD-EPI)AfAm 93.53 Est GFR (CKD-EPI)NonAf 80.70 Random Glucose 75 Calcium 8.7 Total Bilirubin 0.5 AST 119 H ALT 180 H Alkaline Phosphatase 139 H Ammonia 49.60 H Total Protein 6.8 Albumin 3.3 L HOSPITAL COURSE: Date of Admission:01/03/20 Date of Discharge: 01/07/20 Patient is a 59 year old female with past medical history of Alcohol and cocaine dependence, COPD, asthma, hypertension, bipolar disorder, was brought in [facility], where she been since 12/28 for alcohol detox on librium protocol, due to episodes of altered mental status and abdominal distension. #Abdominal pain -likely 2/2 gastritis -Abdominal US: s/p cholecystectomy, normal size liver with fatty infiltration vs hepatocellular disease. 1 cm echogenic lesion in the right hepatic lobe that statistically may represent a cavernous hemangioma. Additional images of the right lower quadrant demonstrates no evidence of free fluid or fluid collection. -Transaminitis likely from alcohol use, trending down -hepatitis serology unremarkable -Famotidine 20mg daily #Altered mental status, improved -may have been 2/2 hepatic encephalopathy, vs alcohol withdrawal vs psych -Head CT no acute pathology -continue Lactulose prn to achieve 4-5 bowel movements a day #Alcohol and cocaine dependence -completed detox at [facility] -will dc to [facility] to continue rehab #UTI -UA today improved from 2 days ago -completed IV Ceftriaxone -Urine cultures no growth #COPD/Asthma -continue Symbicort, Singulair -short course of Prednisone 20mg daily x5 days -ALbuterol neb prn #HTN -On Clonidine 0.3mg bid -will monitor BP #Bipolar disorder -Continue Sertraline and Olanzapine Minutes to complete discharge: 37 Discharge Summary Problems reviewed: Yes Reason For Visit: ALCOHOL DEPENDENCE ELEVATED TRANSAMINASE MEASUREME Current Active Problems Hepatic encephalopathy (Acute) Transaminitis (Acute) Condition: Improved - Instructions Diet, Activity, Other Instructions: Your visit you were admitted to the hospital because of belly pain. This was likely because of gastritis from drinking too much alcohol. You were also noted to have worsening of your COPD. You were started on a short course of steroid and your breathing improved. Medications Please take the following medications as prescribed: 1. Prednisone 20mg daily for 2 more days Please continue your other home medications Follow up Please follow up with your primary care doctor within 1-2 weeks. Additional info Please call 911 or go to the ED if with any worsening fever chills, headache, dizziness, chest pain, shortness of breath, belly pain or any new concerns noted. Referrals: [facility] at [place] [Provider Group] Disposition: I.P. ALCOHOL/SUBS ABUSE REHAB - Home Medications Comprehensive Discharge Medication List: Ambulatory Orders Albuterol Sulfate Inhaler - [Ventolin HFA Inhaler -] 2 inh PO Q4H 11/01/16 Budesonide/Formeterol Fumarate [SYMBICORT 160/4.5mcg -] 2 inh PO BID 11/01/16 Montelukast Na [Singulair -] 10 mg PO HS 11/01/16 cloNIDine HCL [Catapres -] 0.3 mg PO BID 11/01/16 Amitriptyline HCl [Elavil -] 25 mg PO HS 12/29/19 Olanzapine [Zyprexa] 20 mg PO HS 12/29/19 Famotidine [Pepcid -] 20 mg PO DAILY tablet 01/07/20 Gabapentin [Neurontin -] 100 mg PO TID capsule 01/07/20 Lactulose (Oral Use) [Cephulac -] 20 gm PO TID PRN udc 01/07/20 predniSONE [Deltasone -] 10 mg PO DAILY 2 Days #2 tablet 01/07/20 This patient is new to me today: No Emergency Visit: Yes ED Registration Date: 01/03/20 Care time: The patient presented to the Emergency Department on the above date and was hospitalized for further evaluation of their emergent condition. Critical Care patient: No - Discharge Referral Referred to [facility] No ATTENDING PHYSICIAN STATEMENT I saw and evaluated the patient. I reviewed the resident's note and discussed the case with the resident. I agree with the resident's findings and plan as documented. SUBJECTIVE: OBJECTIVE: ASSESSMENT AND PLAN:
== END 2020-01-07 14:29 | disposition other institution (70) | DRG 52 ==
LOC: JER 09:40 → JERBED 15:22 → J5S 16:43
PROVIDERS: ADMIT Internal Medicine; ATTEND Internal Medicine
DX: G92 Toxic encephalopathy (principal); K29.20 Alcoholic gastritis without bleeding; F14.20 Cocaine dependence, uncomplicated; F10.230 Alcohol dependence with withdrawal, uncomplicated; J44.9 Chronic obstructive pulmonary disease, unspecified; D18.09 Hemangioma of other sites; I10 Essential (primary) hypertension; F31.9 Bipolar disorder, unspecified; F17.210 Nicotine dependence, cigarettes, uncomplicated; R74.0 Nonspecific elevation of levels of transaminase and lactic acid dehydrogenase [LDH]; N39.0 Urinary tract infection, site not specified; R14.0 Abdominal distension (gaseous); K76.0 Fatty (change of) liver, not elsewhere classified; E66.9 Obesity, unspecified; Z68.29 Body mass index [BMI] 29.0-29.9, adult
CPT/HCPCS: 36415; 70450-TC; 76705-TC; 80053; 80061; 80074; 81003; 82140; 82962; 83605; 83690; 83721; 83735; 83880; 84100; 84443; 85025; 85610; 85730; 87086; 93005; 93010; 94640; 99285-25; J0735

== ENCOUNTER 2020-01-07 15:28 | Inpatient (IN) | payer OTHER ==
--- NOTE | 2020-01-07 15:59 | BHS.RME ---
Substance Use & Tx History - Substance Use History Alcohol Substance amount: 1-1.5 liquor Frequency of use: Daily Substance route: Oral Date of Last Use: 01/04/20 Heroin Substance amount: 3 bags Frequency of use: Less than 5 times a year Substance route: Inhalation (ex: sniffing or snorting) Date of Last Use: 10/19/19 (says she is gradually going off it) Cocaine- Powder Substance amount: 15 bags Frequency of use: More than 3 times per week Substance route: Inhalation (ex: sniffing or snorting) Date of Last Use: 01/04/20 Cocaine-Crack Frequency of use: More than 3 times per week Substance route: Smoking Date of Last Use: 01/04/20 Nicotine Frequency of use: More than 3 times per week Substance route: Smoking Date of Last Use: 01/04/20 - Last Treatment Where was last treatment: Rehab (Was in rehab here at [facility] 4 days ago. Left Rehab today) Physical/Psych/Mental Status - Behavior General Behavior: Increased activity (restlessness, agitation) Eye Contact: Normal - Cooperativeness Cooperativeness: Cooperative - Thinking Thought Processes: Tight Thought content: Future oriented (Used to have suicidal thoughts in the past) Perceptions: Hallucinations (auditory, visual, olfactory) (HEARS AND SEES VOICES EVERYDAY BUT SAYS IT DOESN'T BOTHER HER) - Physical Health Problems Is patient presently having any pain?: Yes (Lower back, Lt Lower limb, Lt. shoulder) Does patient presently have any injuries (include location): No Does patient currently have a fever: No CIWA Nausea/Vomitin-Mild Nausea/No Vomiting Muscle Tremors: 2 Anxiety: 3 Agitation: 0-Normal Activity Paroxysmal Sweats: No Perspiration Orientation: 2-Disoriented Date<2 days Tacttile Disturbances: 0-None Auditory Disturbances: 0-None Visual Disturbances: 0-None Headache: 0-None Present (Pt says she has asthma, COPD,HTN, bipolar,schizophrenia,anxiety, chronic back, LLL and Lt. shoulder pain) CIWA-Ar Total Score: 8
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
[2020-01-07] MEDS ORDERED: MAGNESIUM HYDROX 2400MG/30ML ORAL SUSPENSION 30 ML CUP PO PRN (18:13)
[2020-01-07] MEDS ORDERED: guaiFENesin 200 MG/10 ML 10 ML UNIT-DOSE CUPS PO PRN (18:13)
[2020-01-07] MEDS ORDERED: LOPERAMIDE HCL 2 MG CAPSULE PO PRN (18:13)
[2020-01-07] MEDS ORDERED: MAGNESIUM CITRATE 300 ML BOTTLE PO PRN (18:13)
[2020-01-07] MEDS ORDERED: NICOTINE POLACRILEX 2 MG GUM BUC PRN (18:13)
[2020-01-07] MEDS ORDERED: P-EPHED 60MG/TRIPROLIDI 2.5MG TABLET PO PRN (18:13)
[2020-01-07] MEDS ORDERED: IBUPROFEN 400 MG TABLET (FP) PO PRN (18:13)
[2020-01-07] MEDS ORDERED: ACETAMINOPHEN 325 MG TABLET (FP) PO PRN (18:13)
[2020-01-07] MEDS ORDERED: NICOTINE 7 MG/24 HOURS TOPICAL PATCH TD SCH (18:15)
[2020-01-07 18:41] VITALS: BMI 29.7
--- NOTE | 2020-01-07 18:55 | PN ---
Teaching Attending Note Name of Resident: Laverne Wood ATTENDING PHYSICIAN STATEMENT I saw and evaluated the patient. I reviewed the resident's note and discussed the case with the resident. I agree with the resident's findings and plan as documented. SUBJECTIVE: 59 year old female REQUESTING REHAB FOR COCAINE AND ALCOHOL USE , s/p hospitalization 01/02-01/06 for AMS/ abdominal pain . Pt denies complaints at this time. PMHX : COPD, asthma, hypertension, bipolar disorder . D/C summary reviewed : #Abdominal pain 2/2 gastritis , on Famotidine 20 mg daily Abdominal US: s/p cholecystectomy, normal size liver with fatty infiltration vs hepatocellular disease. 1 cm echogenic lesion in the right hepatic lobe that statistically may represent a cavernous hemangioma. Additional images of the right lower quadrant demonstrates no evidence of free fluid or fluid collection. #Altered mental status 2/2 hepatic encephalopathy, on Lactulose prn to achieve 4-5 bowel movements a day #UTI , completed IV Ceftriaxone #COPD/Asthma on Symbicort, Singulair on taper Prednisone 20mg daily x5 days , Albuterol neb prn #HTN w/ Clonidine 0.3mg bid #Bipolar disorder on Sertraline and Olanzapine OBJECTIVE:WNWD , ambulating freely . ASSESSMENT AND PLAN: Alcohol dependence / Cocaine dependence : rehab Gastritis - continue Famotidine Hepatic encephalopathy - prn Lactulose Copd / Asthma - continue Symbicort, Singulair , Prednisone x 2 days , prn ALbuterol . HTN - Clonidine 0.3 mg bid Bipolar d/o - psychiatry consult.
[2020-01-07] MEDS ORDERED: IBUPROFEN 200 MG TABLET PO PRN (18:56)
[2020-01-07] MEDS ORDERED: LACTULOSE 20 GM/30 ML UDC (FOR ORAL USE ONLY) PO PRN (19:18)
[2020-01-07] MEDS: PRENATAL VITAMINS W/ FOLIC ACID TABLET (FP) PO SCH (20:02)
[2020-01-07] MEDS ORDERED: hydrOXYzine PAMOATE 25 MG CAPSULE (FP) PO SCH (22:00)
[2020-01-07] MEDS: THIAMINE HCL 100 MG TABLET (FP) PO SCH (22:03)
[2020-01-07] MEDS: MONTELUKAST NA 10 MG TABLET PO SCH (22:03)
[2020-01-07] MEDS: NAPROXEN 500 MG TABLET PO SCH (22:03)
[2020-01-07] MEDS: MELATONIN 5 MG TABLETS PO SCH (22:03)
[2020-01-07] MEDS: cloNIDine HCL 0.1 MG TABLET PO SCH (22:03)
[2020-01-07] MEDS: BUDESONIDE/FORMETEROL FUMARATE 160/4.5 mcg INHALER IH SCH (22:04)
[2020-01-08] MEDS ORDERED: PT OWN MED DRAWER 7, Y5N ONE (08:52)
[2020-01-08] MEDS: NAPROXEN 500 MG TABLET PO SCH ×2 (10:08→21:25)
[2020-01-08] MEDS: PRENATAL VITAMINS W/ FOLIC ACID TABLET (FP) PO SCH (10:09)
[2020-01-08] MEDS: cloNIDine HCL 0.1 MG TABLET PO SCH ×2 (10:09→21:25)
[2020-01-08] MEDS: FAMOTIDINE 20 MG TABLET PO SCH (10:09)
[2020-01-08] MEDS: BUDESONIDE/FORMETEROL FUMARATE 160/4.5 mcg INHALER IH SCH ×2 (10:10→21:27)
[2020-01-08] MEDS: predniSONE 10 MG TABLET (UD) PO SCH (11:53)
[2020-01-08] MEDS ORDERED: PNEUMOCOCCAL 23 VACCINE 0.5 ML VIAL IM ONE (12:00)
[2020-01-08] MEDS ORDERED: PNEUMOC 13-VAL CONJ-DIP CRM/PF 0.5 ML DISP.SYRIN IM ONE (12:00)
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
[2020-01-08] MEDS ORDERED: MASKS NR ONE (13:59)
--- NOTE | 2020-01-08 15:12 | PN ---
[facility] Progress Note (SOAP) Subjective: Reporting back, shoulder, and ankle pain. States not relieved with present medication-Naprosyn. States she cannot use Ibuprofen and the Lidoderm patch does not work, however, she has not used it for > 3 days. Objective: General: no apparent distress HEENTM: normocephalic EOMI Neck: supple MSK: full weight bearing, full ROM, steady gait ABD: obese, +BS Vital Signs Period Temp Pulse Resp BP Sys/[place] Pulse Ox Last 24 Hr 97.8 F-98.0 F 96-104 16-19 123-148/85-96 96-99 01/08/20 15:08 Assessment: Chronic Back pain Osteoarthritis 01/08/20 15:09 Plan: Encouraged patient to take Naprosyn as ordered and try to not miss doses Lidoderm patch ordered, Muscle Relaxant ordered Luke Asencio at night when Lidoderm removed.
[2020-01-08] MEDS: LIDOCAINE 5% TOPICAL PATCH TP SCH (15:57)
[2020-01-08] MEDS: METHOCARBAMOL 500 MG TABLET PO SCH ×2 (17:53→21:25)
[2020-01-08] MEDS: MELATONIN 5 MG TABLETS PO SCH (21:25)
[2020-01-08] MEDS: MONTELUKAST NA 10 MG TABLET PO SCH (21:25)
[2020-01-08] MEDS: THIAMINE HCL 100 MG TABLET (FP) PO SCH (21:25)
[2020-01-08] MEDS: LIDOCAINE PATCH REMOVAL MC SCH (21:27)
[2020-01-08] MEDS: METHYL SALICYLATE/MENTHOL OINT 30 GM TUBE TP SCH (21:27)
[2020-01-08] MEDS ORDERED: AMITRIPTYLINE HCL 25 MG TABLET PO SCH (22:00)
[2020-01-08] MEDS ORDERED: SUVOREXANT 10 MG TABLET PO PRN (22:00)
[2020-01-08] MEDS: OLANZapine 10 MG TABLET PO SCH (22:05)
[2020-01-09] MEDS ORDERED: PT OWN MED DRAWER 7, Y5N ONE ×2 (08:48→18:47)
[2020-01-09] MEDS: cloNIDine HCL 0.1 MG TABLET PO SCH ×2 (10:04→21:32)
[2020-01-09] MEDS: NAPROXEN 500 MG TABLET PO SCH ×2 (10:05→21:32)
[2020-01-09] MEDS: predniSONE 10 MG TABLET (UD) PO SCH (10:05)
[2020-01-09] MEDS: LIDOCAINE 5% TOPICAL PATCH TP SCH (10:05)
[2020-01-09] MEDS: METHOCARBAMOL 500 MG TABLET PO PRN (10:05)
[2020-01-09] MEDS: SERTRALINE HCL 50 MG TABLET (FP) PO SCH (10:05)
[2020-01-09] MEDS: BUDESONIDE/FORMETEROL FUMARATE 160/4.5 mcg INHALER IH SCH ×2 (10:07→21:32)
[2020-01-09] MEDS: PRENATAL VITAMINS W/ FOLIC ACID TABLET (FP) PO SCH (10:08)
[2020-01-09] MEDS: FAMOTIDINE 20 MG TABLET PO SCH (10:08)
[2020-01-09] MEDS: METHYL SALICYLATE/MENTHOL OINT 30 GM TUBE TP SCH (10:08)
[2020-01-09] MEDS: hydrOXYzine PAMOATE 25 MG CAPSULE (FP) PO PRN (19:09)
[2020-01-09] MEDS: MONTELUKAST NA 10 MG TABLET PO SCH (21:32)
[2020-01-09] MEDS: MELATONIN 5 MG TABLETS PO SCH (21:32)
[2020-01-09] MEDS: THIAMINE HCL 100 MG TABLET (FP) PO SCH (21:32)
[2020-01-09] MEDS: OLANZapine 10 MG TABLET PO SCH (21:32)
[2020-01-09] MEDS: LIDOCAINE PATCH REMOVAL MC SCH (21:32)
[2020-01-10] MEDS: METHYL SALICYLATE/MENTHOL OINT 30 GM TUBE TP SCH (10:01)
[2020-01-10] MEDS: cloNIDine HCL 0.1 MG TABLET PO SCH ×2 (10:01→21:25)
[2020-01-10] MEDS: FAMOTIDINE 20 MG TABLET PO SCH (10:02)
[2020-01-10] MEDS: LIDOCAINE 5% TOPICAL PATCH TP SCH (10:02)
[2020-01-10] MEDS: NAPROXEN 500 MG TABLET PO SCH ×2 (10:02→21:25)
[2020-01-10] MEDS: PRENATAL VITAMINS W/ FOLIC ACID TABLET (FP) PO SCH (10:02)
[2020-01-10] MEDS: SERTRALINE HCL 50 MG TABLET (FP) PO SCH (10:03)
[2020-01-10] MEDS: BUDESONIDE/FORMETEROL FUMARATE 160/4.5 mcg INHALER IH SCH ×2 (10:03→21:25)
[2020-01-10] MEDS ORDERED: COLLOIDAL OATMEAL 1 BAR EACH TP PRN (13:51)
[2020-01-10] MEDS ORDERED: MASKS NR ONE (17:53)
[2020-01-10] MEDS: THIAMINE HCL 100 MG TABLET (FP) PO SCH (21:25)
[2020-01-10] MEDS: MELATONIN 5 MG TABLETS PO SCH (21:25)
[2020-01-10] MEDS: MONTELUKAST NA 10 MG TABLET PO SCH (21:25)
[2020-01-10] MEDS: OLANZapine 10 MG TABLET PO SCH (21:25)
[2020-01-10] MEDS: LIDOCAINE PATCH REMOVAL MC SCH (21:25)
[2020-01-11] MEDS: ALBUTEROL SO4 HFA INHALER IH PRN (08:45)
[2020-01-11] MEDS: BUDESONIDE/FORMETEROL FUMARATE 160/4.5 mcg INHALER IH SCH ×2 (09:54→21:22)
[2020-01-11] MEDS: LIDOCAINE 5% TOPICAL PATCH TP SCH (09:55)
[2020-01-11] MEDS: cloNIDine HCL 0.1 MG TABLET PO SCH ×2 (09:55→21:21)
[2020-01-11] MEDS: FAMOTIDINE 20 MG TABLET PO SCH (09:56)
[2020-01-11] MEDS: SERTRALINE HCL 50 MG TABLET (FP) PO SCH (09:56)
[2020-01-11] MEDS: METHYL SALICYLATE/MENTHOL OINT 30 GM TUBE TP SCH (09:56)
[2020-01-11] MEDS: NAPROXEN 500 MG TABLET PO SCH ×2 (09:56→21:21)
[2020-01-11] MEDS: METHOCARBAMOL 500 MG TABLET PO PRN ×2 (09:58→21:22)
[2020-01-11] MEDS: PRENATAL VITAMINS W/ FOLIC ACID TABLET (FP) PO SCH (10:00)
[2020-01-11] MEDS: THIAMINE HCL 100 MG TABLET (FP) PO SCH (21:21)
[2020-01-11] MEDS: MELATONIN 5 MG TABLETS PO SCH (21:21)
[2020-01-11] MEDS: MONTELUKAST NA 10 MG TABLET PO SCH (21:21)
[2020-01-11] MEDS: OLANZapine 10 MG TABLET PO SCH (21:21)
[2020-01-11] MEDS: LIDOCAINE PATCH REMOVAL MC SCH (21:22)
[2020-01-11] MEDS ORDERED: SUVOREXANT 10 MG TABLET PO PRN (22:00)
[2020-01-12] MEDS: SERTRALINE HCL 50 MG TABLET (FP) PO SCH (09:46)
[2020-01-12] MEDS: PRENATAL VITAMINS W/ FOLIC ACID TABLET (FP) PO SCH (09:46)
[2020-01-12] MEDS: cloNIDine HCL 0.1 MG TABLET PO SCH ×2 (09:46→21:07)
[2020-01-12] MEDS: LIDOCAINE 5% TOPICAL PATCH TP SCH (09:46)
[2020-01-12] MEDS: NAPROXEN 500 MG TABLET PO SCH ×2 (09:46→21:09)
[2020-01-12] MEDS: BUDESONIDE/FORMETEROL FUMARATE 160/4.5 mcg INHALER IH SCH ×2 (09:47→21:09)
[2020-01-12] MEDS: METHYL SALICYLATE/MENTHOL OINT 30 GM TUBE TP SCH (09:47)
[2020-01-12] MEDS: METHOCARBAMOL 500 MG TABLET PO PRN (09:51)
[2020-01-12] MEDS: FAMOTIDINE 20 MG TABLET PO SCH (09:52)
[2020-01-12] MEDS: LIDOCAINE PATCH REMOVAL MC SCH (21:06)
[2020-01-12] MEDS: MELATONIN 5 MG TABLETS PO SCH (21:07)
[2020-01-12] MEDS: THIAMINE HCL 100 MG TABLET (FP) PO SCH (21:07)
[2020-01-12] MEDS: OLANZapine 10 MG TABLET PO SCH (21:07)
[2020-01-12] MEDS: MONTELUKAST NA 10 MG TABLET PO SCH (21:09)
[2020-01-13] MEDS: METHOCARBAMOL 500 MG TABLET PO PRN ×2 (06:45→21:45)
[2020-01-13] MEDS: SERTRALINE HCL 50 MG TABLET (FP) PO SCH (10:11)
[2020-01-13] MEDS: cloNIDine HCL 0.1 MG TABLET PO SCH ×2 (10:11→21:46)
[2020-01-13] MEDS: LIDOCAINE 5% TOPICAL PATCH TP SCH (10:11)
[2020-01-13] MEDS: NAPROXEN 500 MG TABLET PO SCH ×2 (10:11→21:45)
[2020-01-13] MEDS: FAMOTIDINE 20 MG TABLET PO SCH (10:12)
[2020-01-13] MEDS: METHYL SALICYLATE/MENTHOL OINT 30 GM TUBE TP SCH (10:12)
[2020-01-13] MEDS: PRENATAL VITAMINS W/ FOLIC ACID TABLET (FP) PO SCH (10:12)
[2020-01-13] MEDS: BUDESONIDE/FORMETEROL FUMARATE 160/4.5 mcg INHALER IH SCH ×2 (10:14→21:46)
[2020-01-13] MEDS: ALBUTEROL SO4 HFA INHALER IH PRN (10:14)
--- NOTE | 2020-01-13 11:53 | PN ---
[facility] Progress Note Note: patient need renewal for duoobeb nebulizer
[2020-01-13] MEDS: ALBUTEROL SO4 2.5/IPRATROPIUM 0.5 INH SOL 3 ML VIAL.NEB. NEB PRN (13:08)
[2020-01-13] MEDS: LIDOCAINE PATCH REMOVAL MC SCH (21:44)
[2020-01-13] MEDS: MELATONIN 5 MG TABLETS PO SCH (21:44)
[2020-01-13] MEDS: THIAMINE HCL 100 MG TABLET (FP) PO SCH (21:44)
[2020-01-13] MEDS: MONTELUKAST NA 10 MG TABLET PO SCH (21:45)
[2020-01-13] MEDS: OLANZapine 10 MG TABLET PO SCH (21:45)
[2020-01-14] MEDS: METHOCARBAMOL 500 MG TABLET PO PRN (06:21)
[2020-01-14] MEDS: cloNIDine HCL 0.1 MG TABLET PO SCH ×2 (09:39→21:07)
[2020-01-14] MEDS: NAPROXEN 500 MG TABLET PO SCH ×2 (09:39→21:07)
[2020-01-14] MEDS: LIDOCAINE 5% TOPICAL PATCH TP SCH (09:39)
[2020-01-14] MEDS: PRENATAL VITAMINS W/ FOLIC ACID TABLET (FP) PO SCH (09:39)
[2020-01-14] MEDS: SERTRALINE HCL 50 MG TABLET (FP) PO SCH (09:39)
[2020-01-14] MEDS: FAMOTIDINE 20 MG TABLET PO SCH (09:39)
[2020-01-14] MEDS: ALBUTEROL SO4 HFA INHALER IH PRN (09:40)
[2020-01-14] MEDS: METHYL SALICYLATE/MENTHOL OINT 30 GM TUBE TP SCH (09:42)
[2020-01-14] MEDS: BUDESONIDE/FORMETEROL FUMARATE 160/4.5 mcg INHALER IH SCH ×2 (09:42→21:09)
[2020-01-14] MEDS: ALBUTEROL SO4 2.5/IPRATROPIUM 0.5 INH SOL 3 ML VIAL.NEB. NEB PRN (10:44)
[2020-01-14] MEDS: MONTELUKAST NA 10 MG TABLET PO SCH (21:07)
[2020-01-14] MEDS: THIAMINE HCL 100 MG TABLET (FP) PO SCH (21:07)
[2020-01-14] MEDS: MELATONIN 5 MG TABLETS PO SCH (21:07)
[2020-01-14] MEDS: LIDOCAINE PATCH REMOVAL MC SCH (21:08)
[2020-01-14] MEDS: OLANZapine 10 MG TABLET PO SCH (21:08)
[2020-01-15] MEDS: METHOCARBAMOL 500 MG TABLET PO PRN ×3 (06:40→15:31)
[2020-01-15] MEDS: NAPROXEN 500 MG TABLET PO SCH ×2 (10:09→21:22)
[2020-01-15] MEDS: BUDESONIDE/FORMETEROL FUMARATE 160/4.5 mcg INHALER IH SCH ×2 (10:09→21:22)
[2020-01-15] MEDS: LIDOCAINE 5% TOPICAL PATCH TP SCH (10:09)
[2020-01-15] MEDS: PRENATAL VITAMINS W/ FOLIC ACID TABLET (FP) PO SCH (10:09)
[2020-01-15] MEDS: METHYL SALICYLATE/MENTHOL OINT 30 GM TUBE TP SCH (10:10)
[2020-01-15] MEDS: SERTRALINE HCL 50 MG TABLET (FP) PO SCH (10:10)
[2020-01-15] MEDS: FAMOTIDINE 20 MG TABLET PO SCH (10:10)
[2020-01-15] MEDS: cloNIDine HCL 0.1 MG TABLET PO SCH ×2 (10:10→21:22)
[2020-01-15] MEDS: hydrOXYzine PAMOATE 25 MG CAPSULE (FP) PO PRN (10:11)
[2020-01-15] MEDS: MAG HYDROX/AL HYDROX/SIMETH 30 ML UNIT-DOSE CUP PO PRN ×2 (11:19→17:47)
--- NOTE | 2020-01-15 14:19 | PN ---
[facility] Progress Note Note: Patient with elevated ammonia level. Asymptomatic. Continue Lactulose. Abnormal Lab Results 01/15/20 07:50 Ammonia 147.50 H
[2020-01-15] MEDS: OLANZapine 10 MG TABLET PO SCH (21:22)
[2020-01-15] MEDS: MONTELUKAST NA 10 MG TABLET PO SCH (21:22)
[2020-01-15] MEDS: LIDOCAINE PATCH REMOVAL MC SCH (21:22)
[2020-01-15] MEDS: THIAMINE HCL 100 MG TABLET (FP) PO SCH (21:22)
[2020-01-15] MEDS: MELATONIN 5 MG TABLETS PO SCH (21:22)
[2020-01-16] MEDS: METHOCARBAMOL 500 MG TABLET PO PRN ×2 (06:21→09:44)
[2020-01-16] MEDS: ALBUTEROL SO4 2.5/IPRATROPIUM 0.5 INH SOL 3 ML VIAL.NEB. NEB PRN (08:15)
--- NOTE | 2020-01-16 08:47 | PN ---
[facility] Progress Note Note: ammonia level is 147.50,change lactulose to 20 gram po qid ,repeat ammonia level in am,cmp in am
[2020-01-16] MEDS: METHYL SALICYLATE/MENTHOL OINT 30 GM TUBE TP SCH (09:41)
[2020-01-16] MEDS: NAPROXEN 500 MG TABLET PO SCH ×2 (09:42→21:24)
[2020-01-16] MEDS: SERTRALINE HCL 50 MG TABLET (FP) PO SCH (09:42)
[2020-01-16] MEDS: FAMOTIDINE 20 MG TABLET PO SCH (09:42)
[2020-01-16] MEDS: PRENATAL VITAMINS W/ FOLIC ACID TABLET (FP) PO SCH (09:42)
[2020-01-16] MEDS: LACTULOSE 20 GM/30 ML UDC (FOR ORAL USE ONLY) PO SCH ×4 (09:42→21:24)
[2020-01-16] MEDS: LIDOCAINE 5% TOPICAL PATCH TP SCH (09:42)
[2020-01-16] MEDS: cloNIDine HCL 0.1 MG TABLET PO SCH ×2 (09:42→21:24)
[2020-01-16] MEDS: hydrOXYzine PAMOATE 25 MG CAPSULE (FP) PO PRN (09:43)
[2020-01-16] MEDS: BUDESONIDE/FORMETEROL FUMARATE 160/4.5 mcg INHALER IH SCH ×2 (09:43→21:24)
[2020-01-16] MEDS: SIMETHICONE 80 MG TAB.CHEW (FP) PO PRN (09:44)
[2020-01-16] MEDS: ALBUTEROL SO4 HFA INHALER IH PRN (09:45)
[2020-01-16] MEDS: THIAMINE HCL 100 MG TABLET (FP) PO SCH (21:24)
[2020-01-16] MEDS: OLANZapine 10 MG TABLET PO SCH (21:24)
[2020-01-16] MEDS: LIDOCAINE PATCH REMOVAL MC SCH (21:24)
[2020-01-16] MEDS: MONTELUKAST NA 10 MG TABLET PO SCH (21:24)
[2020-01-16] MEDS: MELATONIN 5 MG TABLETS PO SCH (21:24)
[2020-01-17] MEDS: ALBUTEROL SO4 2.5/IPRATROPIUM 0.5 INH SOL 3 ML VIAL.NEB. NEB PRN ×3 (05:57→17:46)
[2020-01-17] MEDS: LACTULOSE 20 GM/30 ML UDC (FOR ORAL USE ONLY) PO SCH ×4 (09:57→21:19)
[2020-01-17] MEDS: METHYL SALICYLATE/MENTHOL OINT 30 GM TUBE TP SCH (09:57)
[2020-01-17] MEDS: NAPROXEN 500 MG TABLET PO SCH ×2 (09:57→21:20)
[2020-01-17] MEDS: cloNIDine HCL 0.1 MG TABLET PO SCH ×2 (09:58→21:20)
[2020-01-17] MEDS: LIDOCAINE 5% TOPICAL PATCH TP SCH (09:58)
[2020-01-17] MEDS: SERTRALINE HCL 50 MG TABLET (FP) PO SCH (09:58)
[2020-01-17] MEDS: PRENATAL VITAMINS W/ FOLIC ACID TABLET (FP) PO SCH (09:58)
[2020-01-17] MEDS: FAMOTIDINE 20 MG TABLET PO SCH (09:58)
[2020-01-17] MEDS: METHOCARBAMOL 500 MG TABLET PO PRN ×2 (10:00→17:46)
[2020-01-17] MEDS: SIMETHICONE 80 MG TAB.CHEW (FP) PO PRN (10:00)
[2020-01-17] MEDS ORDERED: PT OWN MED DRAWER 7, Y5N ONE ×2 (10:00→14:53)
[2020-01-17] MEDS: BUDESONIDE/FORMETEROL FUMARATE 160/4.5 mcg INHALER IH SCH ×2 (10:02→21:19)
[2020-01-17] MEDS: ALBUTEROL SO4 HFA INHALER IH PRN (10:03)
--- NOTE | 2020-01-17 13:32 | PN ---
[facility] Progress Note Note: Patient complaining that lactulose is causing her to have frequent loose stools. She also wants a double dose of albuterol when she has a nebulizer treatment. HPI: Patient is on lactulose for elevated ammonia level, which was drawn today. Pt has hx of asthma. P/E: General: no apparent distress HEENTM: EOMI, PERRLA, Normocephalic Neck: supple Resp: clear, unlabored, no use of accessory muscles ABD: +BS Neuro: no cognitive deficits noted, A+Ox4. Laboratory Last Values Ammonia 89.80 umol/L (11-32) H 01/17/20 08:35 HIV Ag/Ab Combo Qual Negative (NEGATIVE) 01/08/20 08:20 Vital Signs Period Temp Pulse Resp BP Sys/[place] Pulse Ox Last 24 Hr 97.7 F-97.7 F 84-95 18-18 136-149/79-98 95-96 A/P: Elevated ammonia level: Ammonia level is reduced from ~147 to ~90; still elevated. Continue lactulose Asthma: Dose will not be doubled at this time. However, changed to every 4 hours from every 6 hours.
[2020-01-17 14:40] LABS: CREATININE 0.7 mg/dL (0.55-1.3); POTASSIUM 3.9 mmol/L (3.5-5.1)
[2020-01-17 14:48] LABS: ALBUMIN 3.4 g/dl (3.4-5.0); BILIRUBIN,TOTAL 0.8 mg/dL (0.2-1); BLOOD UREA NITROGEN 16.2 mg/dL (7-18); CALCIUM 8.7 mg/dL (8.5-10.1); TOT PROT 6.6 g/dl (6.4-8.2)
[2020-01-17] MEDS: LIDOCAINE PATCH REMOVAL MC SCH (21:20)
[2020-01-17] MEDS: MONTELUKAST NA 10 MG TABLET PO SCH (21:20)
[2020-01-17] MEDS: OLANZapine 10 MG TABLET PO SCH (21:20)
[2020-01-17] MEDS: THIAMINE HCL 100 MG TABLET (FP) PO SCH (21:20)
[2020-01-17] MEDS: MELATONIN 5 MG TABLETS PO SCH (21:20)
[2020-01-18] MEDS: METHOCARBAMOL 500 MG TABLET PO PRN ×3 (04:20→21:34)
[2020-01-18] MEDS: LACTULOSE 20 GM/30 ML UDC (FOR ORAL USE ONLY) PO SCH ×4 (09:59→21:34)
[2020-01-18] MEDS: METHYL SALICYLATE/MENTHOL OINT 30 GM TUBE TP SCH (10:00)
[2020-01-18] MEDS: FAMOTIDINE 20 MG TABLET PO SCH (10:00)
[2020-01-18] MEDS: NAPROXEN 500 MG TABLET PO SCH ×2 (10:00→21:34)
[2020-01-18] MEDS: SERTRALINE HCL 50 MG TABLET (FP) PO SCH (10:00)
[2020-01-18] MEDS: cloNIDine HCL 0.1 MG TABLET PO SCH ×2 (10:00→21:33)
[2020-01-18] MEDS: LIDOCAINE 5% TOPICAL PATCH TP SCH (10:00)
[2020-01-18] MEDS: ALBUTEROL SO4 2.5/IPRATROPIUM 0.5 INH SOL 3 ML VIAL.NEB. NEB PRN (10:01)
[2020-01-18] MEDS: BUDESONIDE/FORMETEROL FUMARATE 160/4.5 mcg INHALER IH SCH ×2 (10:03→21:32)
[2020-01-18] MEDS: ALBUTEROL SO4 HFA INHALER IH PRN ×2 (10:03→21:32)
[2020-01-18] MEDS: PRENATAL VITAMINS W/ FOLIC ACID TABLET (FP) PO SCH (10:04)
[2020-01-18] MEDS: LIDOCAINE PATCH REMOVAL MC SCH (21:32)
[2020-01-18] MEDS: OLANZapine 10 MG TABLET PO SCH (21:34)
[2020-01-18] MEDS: THIAMINE HCL 100 MG TABLET (FP) PO SCH (21:34)
[2020-01-18] MEDS: MELATONIN 5 MG TABLETS PO SCH (21:34)
[2020-01-18] MEDS: MONTELUKAST NA 10 MG TABLET PO SCH (21:34)
[2020-01-19] MEDS: METHOCARBAMOL 500 MG TABLET PO PRN (06:38)
[2020-01-19] MEDS: ALBUTEROL SO4 2.5/IPRATROPIUM 0.5 INH SOL 3 ML VIAL.NEB. NEB PRN ×3 (06:39→23:04)
[2020-01-19] MEDS: BUDESONIDE/FORMETEROL FUMARATE 160/4.5 mcg INHALER IH SCH ×2 (09:38→21:19)
[2020-01-19] MEDS: LACTULOSE 20 GM/30 ML UDC (FOR ORAL USE ONLY) PO SCH ×4 (09:38→21:19)
[2020-01-19] MEDS: PRENATAL VITAMINS W/ FOLIC ACID TABLET (FP) PO SCH (09:39)
[2020-01-19] MEDS: NAPROXEN 500 MG TABLET PO SCH ×2 (09:39→21:19)
[2020-01-19] MEDS: cloNIDine HCL 0.1 MG TABLET PO SCH ×2 (09:39→21:19)
[2020-01-19] MEDS: FAMOTIDINE 20 MG TABLET PO SCH (09:39)
[2020-01-19] MEDS: SERTRALINE HCL 50 MG TABLET (FP) PO SCH (09:39)
[2020-01-19] MEDS: LIDOCAINE 5% TOPICAL PATCH TP SCH (09:40)
[2020-01-19] MEDS: METHYL SALICYLATE/MENTHOL OINT 30 GM TUBE TP SCH (09:40)
[2020-01-19] MEDS: ALBUTEROL SO4 HFA INHALER IH PRN (09:42)
[2020-01-19] MEDS: MONTELUKAST NA 10 MG TABLET PO SCH (21:19)
[2020-01-19] MEDS: LIDOCAINE PATCH REMOVAL MC SCH (21:19)
[2020-01-19] MEDS: OLANZapine 10 MG TABLET PO SCH (21:19)
[2020-01-19] MEDS: THIAMINE HCL 100 MG TABLET (FP) PO SCH (21:19)
[2020-01-19] MEDS: MELATONIN 5 MG TABLETS PO SCH (21:19)
[2020-01-20] MEDS: ALBUTEROL SO4 2.5/IPRATROPIUM 0.5 INH SOL 3 ML VIAL.NEB. NEB PRN ×4 (06:17→22:18)
[2020-01-20] MEDS: METHOCARBAMOL 500 MG TABLET PO PRN ×2 (06:17→14:19)
[2020-01-20] MEDS: LACTULOSE 20 GM/30 ML UDC (FOR ORAL USE ONLY) PO SCH ×4 (09:42→21:02)
[2020-01-20] MEDS: BUDESONIDE/FORMETEROL FUMARATE 160/4.5 mcg INHALER IH SCH ×2 (09:42→21:02)
[2020-01-20] MEDS: SERTRALINE HCL 50 MG TABLET (FP) PO SCH (09:43)
[2020-01-20] MEDS: FAMOTIDINE 20 MG TABLET PO SCH (09:43)
[2020-01-20] MEDS: METHYL SALICYLATE/MENTHOL OINT 30 GM TUBE TP SCH (09:43)
[2020-01-20] MEDS: NAPROXEN 500 MG TABLET PO SCH ×2 (09:43→21:02)
[2020-01-20] MEDS: PRENATAL VITAMINS W/ FOLIC ACID TABLET (FP) PO SCH (09:43)
[2020-01-20] MEDS: cloNIDine HCL 0.1 MG TABLET PO SCH ×2 (09:43→21:02)
[2020-01-20] MEDS: LIDOCAINE 5% TOPICAL PATCH TP SCH (09:44)
--- NOTE | 2020-01-20 15:01 | PN ---
[facility] Progress Note Note: Patient is scheduled for discharge tomorrow. Script for 30 days supply of medications(Zoloft 50 mg/day, Zyprexa 10 mg/hs) will be electronically transmitted to [facility], [address] [place], [place] [id number]
[2020-01-20] MEDS: MELATONIN 5 MG TABLETS PO SCH (21:02)
[2020-01-20] MEDS: LIDOCAINE PATCH REMOVAL MC SCH (21:02)
[2020-01-20] MEDS: MONTELUKAST NA 10 MG TABLET PO SCH (21:02)
[2020-01-20] MEDS: THIAMINE HCL 100 MG TABLET (FP) PO SCH (21:02)
[2020-01-20] MEDS: OLANZapine 10 MG TABLET PO SCH (21:02)
[2020-01-21] MEDS: METHOCARBAMOL 500 MG TABLET PO PRN (05:51)
[2020-01-21 09:14] VITALS: BP 137/90; PULSE 101; TEMP 97.8
[2020-01-21] MEDS: LIDOCAINE 5% TOPICAL PATCH TP SCH (09:35)
[2020-01-21] MEDS: PRENATAL VITAMINS W/ FOLIC ACID TABLET (FP) PO SCH (09:35)
[2020-01-21] MEDS: NAPROXEN 500 MG TABLET PO SCH (09:35)
[2020-01-21] MEDS: SERTRALINE HCL 50 MG TABLET (FP) PO SCH (09:35)
[2020-01-21] MEDS: SIMETHICONE 80 MG TAB.CHEW (FP) PO PRN (09:35)
[2020-01-21] MEDS: cloNIDine HCL 0.1 MG TABLET PO SCH (09:35)
[2020-01-21] MEDS: LACTULOSE 20 GM/30 ML UDC (FOR ORAL USE ONLY) PO SCH (09:37)
[2020-01-21] MEDS: METHYL SALICYLATE/MENTHOL OINT 30 GM TUBE TP SCH (09:38)
--- NOTE | 2020-01-21 11:07 | DS ---
[facility] Rehab Discharge Summary - [facility] Rehab Discharge Summary Admission Date: 01/07/20 Discharge Date: 01/21/20 - History Present History: Alcohol dependence - Discharge Physical Exam Vital Signs: Vital Signs Temperature 97.8 F 01/21/20 08:13 Pulse Rate 101 H 01/21/20 08:13 Respiratory Rate 18 01/21/20 08:13 Blood Pressure 137/90 01/21/20 08:13 O2 Sat by Pulse Oximetry (%) 97 01/21/20 05:43 Ambulatory Orders cloNIDine HCL [Catapres -] 0.3 mg PO BID 11/01/16 Gabapentin [Neurontin -] 100 mg PO TID capsule 01/07/20 predniSONE [Deltasone -] 10 mg PO DAILY 2 Days #2 tablet 01/07/20 Olanzapine [ZyPREXA -] 10 mg PO HS #30 tablet 01/20/20 Sertraline HCl [Zoloft -] 50 mg PO DAILY #30 tablet 01/20/20 Albuterol Sulfate Inhaler - [Ventolin HFA Inhaler -] 2 inh PO Q4H PRN #1 inh 01/21/20 Albuterol Sulfate Inhaler - [Ventolin HFA Inhaler -] 2 puff IH Q4H PRN #1 inhaler 01/21/20 Budesonide/Formeterol Fumarate [SYMBICORT 160/4.5mcg -] 2 puff IH BID #1 inhaler 01/21/20 Famotidine [Pepcid -] 20 mg PO DAILY #30 tablet 01/21/20 Famotidine [Pepcid -] 20 mg PO DAILY #30 tablet 01/21/20 Lactulose (Oral Use) [Cephulac -] 20 gm PO HS PRN #1 bottle 01/21/20 Montelukast Na [Singulair -] 10 mg PO HS #30 tablet 01/21/20 Laboratory Tests 01/08/20 01/15/20 01/17/20 08:20 07:50 08:35 Sodium 144 Potassium 3.9 Chloride 108 H Carbon Dioxide 29 Anion Gap 7 L BUN 16.2 Creatinine 0.7 Est GFR (CKD-EPI)AfAm 109.91 Est GFR (CKD-EPI)NonAf 94.84 Random Glucose 66 L Calcium 8.7 Total Bilirubin 0.8 AST 78 H ALT 119 H Alkaline Phosphatase 157 H Ammonia 147.50 H Total Protein 6.6 Albumin 3.4 HIV Ag/Ab Combo Qual Negative 01/17/20 08:35 Sodium Potassium Chloride Carbon Dioxide Anion Gap BUN Creatinine Est GFR (CKD-EPI)AfAm Est GFR (CKD-EPI)NonAf Random Glucose Calcium Total Bilirubin AST ALT Alkaline Phosphatase Ammonia 89.80 H Total Protein Albumin HIV Ag/Ab Combo Qual Vital Signs Temperature 97.8 F 01/21/20 08:13 Pulse Rate 101 H 01/21/20 08:13 Respiratory Rate 18 01/21/20 08:13 Blood Pressure 137/90 01/21/20 08:13 O2 Sat by Pulse Oximetry (%) 97 01/21/20 05:43 ROS: DENIES LETHARGY, FEVER, COUGH, SHAKES, HEADACHE AND SWEATING. PE: ALERT AND ORIENTED X 3 SKIN WARM AND DRY +PERRLA,EOMS INTACT BL IN NAD NECK SUPPLE, NO JVD EXT FULL ROM, AMB AD VICKIE NO TREMORS A/P; ALCOHOL DEPENDENCE HTN ASTHMA PATIENT MEDICALLY STABLE FOR D/C AFTERCARE ARRANGED FOR [facility] - Treatment Discharge Condition: Discharge condition good Hospital Course: PATIENT COMPLETED REHAB TODAY. DURING COURSE OF TREATMENT, PATIENT ATTENDED GROUP MEETINGS, 1:1 SESSIONS WITH COUNSELOR AND EVALUATED AND TREATED BY PSYCH TEAM. MEDICALLY, PATIENT TREATED FOR ELEVATED AMMONIA LEVELS WITH LACTULOSE. REPEAT TEST DONE TODAY. PATIENT HAS TRANSPORTATION ARRANGED AT 9:30 AM AND CANNOT WAIT FOR RESULTS. ADVISED TO FOLLOW UP WITH PCP FOR FOLLOW UP LABS, HOWEVER, WILL SEND LACTULOSE 20GM HS TO PREFERRED PHARMACY LAST LEVEL 89; PATIENT MEDICALLY STABLE FOR D/C NEUROLOGICALLY STABLE. SHE DENIES SI/HI. AFTERCARE ARRANGED FOR [facility], APPT 01/23/2020 9AM. PSYCH CARE TO BE CONTINUED AT [facility]. - Medication Discharge Medications: Ambulatory Orders cloNIDine HCL [Catapres -] 0.3 mg PO BID 11/01/16 Gabapentin [Neurontin -] 100 mg PO TID capsule 01/07/20 predniSONE [Deltasone -] 10 mg PO DAILY 2 Days #2 tablet 01/07/20 Olanzapine [ZyPREXA -] 10 mg PO HS #30 tablet 01/20/20 Sertraline HCl [Zoloft -] 50 mg PO DAILY #30 tablet 01/20/20 Albuterol Sulfate Inhaler - [Ventolin HFA Inhaler -] 2 inh PO Q4H PRN #1 inh 01/21/20 Albuterol Sulfate Inhaler - [Ventolin HFA Inhaler -] 2 puff IH Q4H PRN #1 inhaler 01/21/20 Budesonide/Formeterol Fumarate [SYMBICORT 160/4.5mcg -] 2 puff IH BID #1 inhaler 01/21/20 Famotidine [Pepcid -] 20 mg PO DAILY #30 tablet 01/21/20 Famotidine [Pepcid -] 20 mg PO DAILY #30 tablet 01/21/20 Lactulose (Oral Use) [Cephulac -] 20 gm PO HS PRN #1 bottle 01/21/20 Montelukast Na [Singulair -] 10 mg PO HS #30 tablet 01/21/20 - Medication-Assisted Treatment (MAT) Medication-Assisted Treatment (MAT): No MAT Follow-up Referral: MARIAJOSE MATTHEW, APPT 01/23/2020 AT 9AM - Discharge Instructions Diet, activity, other medical instructions: Diet: ANGELITA TOLERATED Activity: AD VICKIE Other medical instructions: F/U WITH PCP RECOMMENDED - Follow-up Referral Minutes to complete discharge: 40 - AMA Did Patient Leave Against Medical Advice: No
== END 2020-01-21 09:45 | disposition home or self-care (01) | DRG 772 ==
LOC: YASAS 15:28 → Y3W 17:58
PROVIDERS: ADMIT Allergy & Immunology; ATTEND Allergy & Immunology
PROC: HZ42ZZZ Group Counseling for Substance Abuse Treatment, Cognitive-Behavioral (ICD-10-PCS; principal; 2020-01-07)
DX: F10.20 Alcohol dependence, uncomplicated (principal); F14.10 Cocaine abuse, uncomplicated; F11.90 Opioid use, unspecified, uncomplicated; F17.210 Nicotine dependence, cigarettes, uncomplicated; F25.9 Schizoaffective disorder, unspecified; E72.20 Disorder of urea cycle metabolism, unspecified; G47.00 Insomnia, unspecified; I10 Essential (primary) hypertension; J44.9 Chronic obstructive pulmonary disease, unspecified; J45.998 Other asthma; K72.90 Hepatic failure, unspecified without coma; R16.0 Hepatomegaly, not elsewhere classified; M54.89 Other dorsalgia; M19.012 Primary osteoarthritis, left shoulder; M19.072 Primary osteoarthritis, left ankle and foot; Z62.810 Personal history of physical and sexual abuse in childhood; R74.0 Nonspecific elevation of levels of transaminase and lactic acid dehydrogenase [LDH]; Z90.49 Acquired absence of other specified parts of digestive tract; Z98.890 Other specified postprocedural states
CPT/HCPCS: 36415; 80053; 82140; 87389; 90732; 94640; G0009; J0735

== ENCOUNTER 2022-04-28 12:35 | Inpatient (IN) | payer OTHER ==
[2022-04-28 13:05] VITALS: BMI 26.1
[2022-04-28] MEDS ORDERED: NALOXONE HCL (KLOXXADO) 8 MG SPRAY NS PRN (13:56)
[2022-04-28] MEDS ORDERED: BENZOCAINE/MENTHOL (CHLORASEPTIC ) LOZENGE MM PRN (13:56)
[2022-04-28] MEDS ORDERED: DICYCLOMINE HCL 10 MG CAPSULE PO PRN (13:56)
[2022-04-28] MEDS ORDERED: ONDANSETRON *ODT* 4 MG TABLET SL PRN (13:56)
[2022-04-28] MEDS ORDERED: hydrOXYzine PAMOATE 25 MG CAPSULE (FP) PO PRN (13:56)
[2022-04-28] MEDS ORDERED: MAGNESIUM CITRATE 300 ML BOTTLE PO PRN (13:56)
[2022-04-28] MEDS ORDERED: ACETAMINOPHEN 325 MG TABLET (FP) PO PRN ×2 (13:56)
[2022-04-28] MEDS ORDERED: IBUPROFEN 400 MG TABLET (FP) PO PRN (13:56)
[2022-04-28] MEDS ORDERED: MAGNESIUM HYDROX 2400MG/30ML ORAL SUSPENSION 30 ML CUP PO PRN (13:56)
[2022-04-28] MEDS ORDERED: IBUPROFEN 600 MG TABLET (FP) PO PRN (13:56)
[2022-04-28] MEDS ORDERED: MAG HYDROX/AL HYDROX/SIMETH 30 ML UNIT-DOSE CUP PO PRN (13:56)
[2022-04-28] MEDS ORDERED: chlordiazePOXIDE HCL 25 MG CAPSULE PO PRN (13:56)
[2022-04-28] MEDS ORDERED: LOPERAMIDE HCL 2 MG CAPSULE PO PRN (13:56)
[2022-04-28] MEDS ORDERED: BISMUTH SUBSALICYLATE 524 MG/30 ML PO PRN (13:56)
[2022-04-28] MEDS ORDERED: ALBUTEROL SO4 HFA INHALER IH PRN (16:43)
[2022-04-28 17:02] LABS: ALBUMIN 3.4 g/dl (3.4-5.0); BLOOD UREA NITROGEN 25.4 mg/dL (7-18); CALCIUM 8.8 mg/dL (8.5-10.1)
[2022-04-28 17:05] LABS: CREATININE 0.8 mg/dL (0.55-1.3)
[2022-04-28 17:07] LABS: BILIRUBIN,TOTAL 0.9 mg/dL (0.2-1); TOT PROT 6.7 g/dl (6.4-8.2)
[2022-04-28 17:16] LABS: MCH 31.8 pg (25.7-33.7); MCHC 34.2 g/dl (32.0-36.0); MEAN CELL VOLUME 92.9 fl (80-96); MEAN PLT VOLUME 8.3 fl (7.5-11.1); PLATELET COUNT 208 10^3/uL (134-434); RBC 4.09 M/mm3 (3.60-5.2); RDW 14.9 % (11.6-15.6); WHITE BLOOD COUNT 7.7 K/mm3 (4.0-10.0)
[2022-04-28] MEDS: chlordiazePOXIDE HCL 25 MG CAPSULE PO SCH ×2 (17:34→22:34)
[2022-04-28] MEDS: PRENATAL VITAMINS W/ FOLIC ACID TABLET (FP) PO SCH (17:40)
[2022-04-28] MEDS: THIAMINE HCL 100 MG TABLET (FP) PO SCH (22:30)
[2022-04-28] MEDS: BUDESONIDE/FORMETEROL FUMARATE 160/4.5 mcg INHALER IH SCH (22:30)
[2022-04-28] MEDS: GABAPENTIN 100 MG CAPSULE PO SCH (22:31)
[2022-04-28] MEDS: MELATONIN 5 MG TABLETS PO SCH (22:31)
[2022-04-28] MEDS: MONTELUKAST NA 10 MG TABLET PO SCH (22:31)
[2022-04-28] MEDS: cloNIDine HCL 0.1 MG TABLET PO SCH (22:31)
[2022-04-29] MEDS: chlordiazePOXIDE HCL 25 MG CAPSULE PO SCH ×4 (05:44→23:39)
[2022-04-29] MEDS: GABAPENTIN 100 MG CAPSULE PO SCH ×3 (05:52→23:38)
[2022-04-29] MEDS: FAMOTIDINE 20 MG TABLET PO SCH (10:20)
[2022-04-29] MEDS: cloNIDine HCL 0.1 MG TABLET PO SCH (10:20)
[2022-04-29] MEDS: BUDESONIDE/FORMETEROL FUMARATE 160/4.5 mcg INHALER IH SCH ×2 (10:20→23:36)
[2022-04-29] MEDS: PRENATAL VITAMINS W/ FOLIC ACID TABLET (FP) PO SCH (10:20)
[2022-04-29] MEDS ORDERED: NICOTINE POLACRILEX 2 MG PO PRN (15:29)
[2022-04-29] MEDS: ALBUTEROL SO4 HFA INHALER IH PRN ×2 (17:59→23:37)
[2022-04-29] MEDS: LACTULOSE 20 GM/30 ML UDC (FOR ORAL USE ONLY) PO SCH ×2 (18:00→23:38)
[2022-04-29] MEDS: PT OWN MED (PYXIS) MM PRN ×2 (18:25→21:14)
[2022-04-29] MEDS: MELATONIN 5 MG TABLETS PO SCH (23:38)
[2022-04-29] MEDS: MONTELUKAST NA 10 MG TABLET PO SCH (23:38)
[2022-04-29] MEDS: THIAMINE HCL 100 MG TABLET (FP) PO SCH (23:38)
[2022-04-30] MEDS: chlordiazePOXIDE HCL 25 MG CAPSULE PO SCH ×4 (05:34→22:47)
[2022-04-30] MEDS: GABAPENTIN 100 MG CAPSULE PO SCH ×3 (05:34→22:47)
[2022-04-30] MEDS: PT OWN MED (PYXIS) MM PRN ×3 (05:34→16:50)
[2022-04-30] MEDS: LURASIDONE HCL 20 MG TABLET PO SCH (10:28)
[2022-04-30] MEDS: FAMOTIDINE 20 MG TABLET PO SCH (10:28)
[2022-04-30] MEDS: PRENATAL VITAMINS W/ FOLIC ACID TABLET (FP) PO SCH (10:28)
[2022-04-30] MEDS: SERTRALINE HCL 50 MG TABLET (FP) PO SCH (10:28)
[2022-04-30] MEDS: LACTULOSE 20 GM/30 ML UDC (FOR ORAL USE ONLY) PO SCH ×4 (10:28→22:47)
[2022-04-30] MEDS: BUDESONIDE/FORMETEROL FUMARATE 160/4.5 mcg INHALER IH SCH ×2 (10:29→22:47)
[2022-04-30] MEDS: MONTELUKAST NA 10 MG TABLET PO SCH (22:47)
[2022-04-30] MEDS: THIAMINE HCL 100 MG TABLET (FP) PO SCH (22:47)
[2022-04-30] MEDS: MELATONIN 5 MG TABLETS PO SCH (22:47)
[2022-05-01] MEDS ORDERED: chlordiazePOXIDE HCL 10 MG CAPSULE PO PRN
[2022-05-01] MEDS: GABAPENTIN 100 MG CAPSULE PO SCH ×3 (06:03→22:45)
[2022-05-01] MEDS: chlordiazePOXIDE HCL 10 MG CAPSULE PO SCH ×4 (06:10→22:45)
[2022-05-01] MEDS: PT OWN MED (PYXIS) MM PRN ×2 (09:00→11:21)
[2022-05-01] MEDS: METHOCARBAMOL 500 MG TABLET PO PRN (10:17)
[2022-05-01] MEDS: LURASIDONE HCL 20 MG TABLET PO SCH (10:17)
[2022-05-01] MEDS: PRENATAL VITAMINS W/ FOLIC ACID TABLET (FP) PO SCH (10:17)
[2022-05-01] MEDS: FAMOTIDINE 20 MG TABLET PO SCH (10:17)
[2022-05-01] MEDS: SERTRALINE HCL 50 MG TABLET (FP) PO SCH (10:17)
[2022-05-01] MEDS: BUDESONIDE/FORMETEROL FUMARATE 160/4.5 mcg INHALER IH SCH ×2 (10:17→22:46)
[2022-05-01] MEDS: LACTULOSE 20 GM/30 ML UDC (FOR ORAL USE ONLY) PO SCH ×4 (10:19→22:45)
[2022-05-01] MEDS: MONTELUKAST NA 10 MG TABLET PO SCH (22:45)
[2022-05-01] MEDS: MELATONIN 5 MG TABLETS PO SCH (22:45)
[2022-05-01] MEDS: ALBUTEROL SO4 HFA INHALER IH PRN (22:45)
[2022-05-01] MEDS: THIAMINE HCL 100 MG TABLET (FP) PO SCH (22:45)
[2022-05-02] MEDS: GABAPENTIN 100 MG CAPSULE PO SCH ×3 (06:01→22:29)
[2022-05-02] MEDS: chlordiazePOXIDE HCL 10 MG CAPSULE PO SCH ×2 (06:01→17:42)
[2022-05-02] MEDS: PT OWN MED (PYXIS) MM PRN ×2 (06:03→22:40)
[2022-05-02] MEDS: LACTULOSE 20 GM/30 ML UDC (FOR ORAL USE ONLY) PO SCH ×4 (10:46→22:29)
[2022-05-02] MEDS: LURASIDONE HCL 20 MG TABLET PO SCH (10:47)
[2022-05-02] MEDS: PRENATAL VITAMINS W/ FOLIC ACID TABLET (FP) PO SCH (10:47)
[2022-05-02] MEDS: BUDESONIDE/FORMETEROL FUMARATE 160/4.5 mcg INHALER IH SCH ×2 (10:47→22:28)
[2022-05-02] MEDS: FAMOTIDINE 20 MG TABLET PO SCH (10:47)
[2022-05-02] MEDS: SERTRALINE HCL 50 MG TABLET (FP) PO SCH (10:47)
[2022-05-02] MEDS: MONTELUKAST NA 10 MG TABLET PO SCH (22:29)
[2022-05-02] MEDS: THIAMINE HCL 100 MG TABLET (FP) PO SCH (22:29)
[2022-05-02] MEDS: MELATONIN 5 MG TABLETS PO SCH (22:29)
[2022-05-02] MEDS: ALBUTEROL SO4 HFA INHALER IH PRN (22:29)
[2022-05-02] MEDS: METHOCARBAMOL 500 MG TABLET PO PRN (22:30)
[2022-05-03] MEDS ORDERED: chlordiazePOXIDE HCL 10 MG CAPSULE PO ONE (05:00)
[2022-05-03] MEDS: GABAPENTIN 100 MG CAPSULE PO SCH (05:30)
[2022-05-03] MEDS: PT OWN MED (PYXIS) MM PRN (08:52)
[2022-05-03] MEDS: PRENATAL VITAMINS W/ FOLIC ACID TABLET (FP) PO SCH (10:15)
[2022-05-03] MEDS: LACTULOSE 20 GM/30 ML UDC (FOR ORAL USE ONLY) PO SCH (10:16)
[2022-05-03] MEDS: BUDESONIDE/FORMETEROL FUMARATE 160/4.5 mcg INHALER IH SCH (10:16)
[2022-05-03] MEDS: FAMOTIDINE 20 MG TABLET PO SCH (10:16)
[2022-05-03] MEDS: LURASIDONE HCL 20 MG TABLET PO SCH (10:16)
[2022-05-03] MEDS: SERTRALINE HCL 50 MG TABLET (FP) PO SCH (10:17)
[2022-05-03 12:54] VITALS: BP 124/67; PULSE 68; RESP 18; TEMP 98.3
== END 2022-05-03 12:57 | disposition other institution (70) | DRG 774 ==
LOC: YASAS 12:35 → Y3N 16:04
PROVIDERS: ADMIT Allergy & Immunology; ATTEND Surgery
PROC: HZ2ZZZZ Detoxification Services for Substance Abuse Treatment (ICD-10-PCS; principal; 2022-04-28)
DX: F10.230 Alcohol dependence with withdrawal, uncomplicated (principal); F14.20 Cocaine dependence, uncomplicated; F17.210 Nicotine dependence, cigarettes, uncomplicated; F31.9 Bipolar disorder, unspecified; F19.24 Other psychoactive substance dependence with psychoactive substance-induced mood disorder; F25.9 Schizoaffective disorder, unspecified; E72.20 Disorder of urea cycle metabolism, unspecified; I10 Essential (primary) hypertension; J44.9 Chronic obstructive pulmonary disease, unspecified; J45.20 Mild intermittent asthma, uncomplicated; R79.89 Other specified abnormal findings of blood chemistry
CPT/HCPCS: 36415; 80053; 82140; 85027; 86780; 93005; 93010; C9803-CS; U0003; U0005

== ENCOUNTER 2022-05-03 13:09 | Inpatient (IN) | payer OTHER ==
[2022-05-03] MEDS ORDERED: MAGNESIUM CITRATE 300 ML BOTTLE PO PRN (16:32)
[2022-05-03] MEDS ORDERED: MAGNESIUM HYDROX 2400MG/30ML ORAL SUSPENSION 30 ML CUP PO PRN (16:32)
[2022-05-03] MEDS ORDERED: NICOTINE 10 MG CARTRIDGE (INHALER) IH PRN (16:32)
[2022-05-03] MEDS ORDERED: LOPERAMIDE HCL 2 MG CAPSULE PO PRN (16:32)
[2022-05-03] MEDS ORDERED: P-EPHED 60MG/TRIPROLIDI 2.5MG TABLET PO PRN (16:32)
[2022-05-03] MEDS ORDERED: ACETAMINOPHEN 325 MG TABLET (FP) PO PRN (16:32)
[2022-05-03] MEDS ORDERED: NICOTINE POLACRILEX 2 MG GUM BC PRN (16:34)
[2022-05-03] MEDS: LACTULOSE 20 GM/30 ML UDC (FOR ORAL USE ONLY) PO SCH ×2 (17:29→21:10)
[2022-05-03] MEDS: IBUPROFEN 400 MG TABLET (FP) PO PRN (21:08)
[2022-05-03] MEDS: THIAMINE HCL 100 MG TABLET (FP) PO SCH (21:09)
[2022-05-03] MEDS: MELATONIN 5 MG TABLETS PO SCH (21:09)
[2022-05-03] MEDS: MONTELUKAST NA 10 MG TABLET PO SCH (21:09)
[2022-05-03] MEDS: GABAPENTIN 100 MG CAPSULE PO SCH (21:09)
[2022-05-04] MEDS: IBUPROFEN 400 MG TABLET (FP) PO PRN ×3 (06:19→21:52)
[2022-05-04] MEDS: GABAPENTIN 100 MG CAPSULE PO SCH ×3 (06:19→21:48)
[2022-05-04] MEDS: PRENATAL VITAMINS W/ FOLIC ACID TABLET (FP) PO SCH (10:27)
[2022-05-04] MEDS: LACTULOSE 20 GM/30 ML UDC (FOR ORAL USE ONLY) PO SCH ×4 (10:27→21:49)
[2022-05-04] MEDS: SERTRALINE HCL 50 MG TABLET (FP) PO SCH (10:28)
[2022-05-04] MEDS: FAMOTIDINE 20 MG TABLET PO SCH (10:28)
[2022-05-04] MEDS: LURASIDONE HCL 20 MG TABLET PO SCH (11:00)
[2022-05-04 12:23] LABS: HIV INTERPRETATION NEGATIVE (NEGATIVE)
[2022-05-04] MEDS: LIDOCAINE 5% TOPICAL PATCH TP SCH (14:29)
[2022-05-04] MEDS: ALBUTEROL SO4 HFA INHALER IH PRN (14:33)
[2022-05-04] MEDS: MONTELUKAST NA 10 MG TABLET PO SCH (21:48)
[2022-05-04] MEDS: THIAMINE HCL 100 MG TABLET (FP) PO SCH (21:48)
[2022-05-04] MEDS: BUDESONIDE/FORMETEROL FUMARATE 160/4.5 mcg INHALER IH SCH (21:49)
[2022-05-04] MEDS: LIDOCAINE PATCH REMOVAL MC SCH (21:49)
[2022-05-04] MEDS: MELATONIN 5 MG TABLETS PO SCH (21:50)
[2022-05-05] MEDS: GABAPENTIN 100 MG CAPSULE PO SCH ×3 (05:54→21:35)
[2022-05-05] MEDS: IBUPROFEN 400 MG TABLET (FP) PO PRN (05:54)
[2022-05-05] MEDS: guaiFENesin 200 MG/10 ML 10 ML UNIT-DOSE CUPS PO PRN ×2 (07:03→21:39)
[2022-05-05] MEDS: LACTULOSE 20 GM/30 ML UDC (FOR ORAL USE ONLY) PO SCH ×4 (10:20→21:36)
[2022-05-05] MEDS: LURASIDONE HCL 20 MG TABLET PO SCH (10:20)
[2022-05-05] MEDS: PRENATAL VITAMINS W/ FOLIC ACID TABLET (FP) PO SCH (10:20)
[2022-05-05] MEDS: FAMOTIDINE 20 MG TABLET PO SCH (10:21)
[2022-05-05] MEDS: BUDESONIDE/FORMETEROL FUMARATE 160/4.5 mcg INHALER IH SCH ×2 (10:21→21:39)
[2022-05-05] MEDS: SERTRALINE HCL 50 MG TABLET (FP) PO SCH (10:21)
[2022-05-05] MEDS: LIDOCAINE 5% TOPICAL PATCH TP SCH (10:22)
[2022-05-05] MEDS: BENZOCAINE/MENTHOL (CHLORASEPTIC ) LOZENGE MM PRN (19:03)
[2022-05-05] MEDS: THIAMINE HCL 100 MG TABLET (FP) PO SCH (21:35)
[2022-05-05] MEDS: MONTELUKAST NA 10 MG TABLET PO SCH (21:35)
[2022-05-05] MEDS: MELATONIN 5 MG TABLETS PO SCH (21:36)
[2022-05-05] MEDS: LIDOCAINE PATCH REMOVAL MC SCH (21:36)
[2022-05-05] MEDS: hydrOXYzine PAMOATE 25 MG CAPSULE (FP) PO PRN (21:37)
[2022-05-06] MEDS: GABAPENTIN 100 MG CAPSULE PO SCH ×3 (06:05→21:34)
[2022-05-06] MEDS: IBUPROFEN 400 MG TABLET (FP) PO PRN (06:06)
[2022-05-06] MEDS: guaiFENesin 200 MG/10 ML 10 ML UNIT-DOSE CUPS PO PRN (06:08)
[2022-05-06] MEDS: LACTULOSE 20 GM/30 ML UDC (FOR ORAL USE ONLY) PO SCH ×4 (10:30→21:37)
[2022-05-06] MEDS: BUDESONIDE/FORMETEROL FUMARATE 160/4.5 mcg INHALER IH SCH ×2 (10:31→21:34)
[2022-05-06] MEDS: LURASIDONE HCL 20 MG TABLET PO SCH (10:31)
[2022-05-06] MEDS: PRENATAL VITAMINS W/ FOLIC ACID TABLET (FP) PO SCH (10:31)
[2022-05-06] MEDS: SERTRALINE HCL 50 MG TABLET (FP) PO SCH (10:31)
[2022-05-06] MEDS: FAMOTIDINE 20 MG TABLET PO SCH (10:31)
[2022-05-06] MEDS: LIDOCAINE 5% TOPICAL PATCH TP SCH (10:32)
[2022-05-06] MEDS: BENZOCAINE/MENTHOL (CHLORASEPTIC ) LOZENGE MM PRN (16:59)
[2022-05-06] MEDS: MELATONIN 5 MG TABLETS PO SCH (21:34)
[2022-05-06] MEDS: MONTELUKAST NA 10 MG TABLET PO SCH (21:35)
[2022-05-06] MEDS: LIDOCAINE PATCH REMOVAL MC SCH (21:35)
[2022-05-06] MEDS: THIAMINE HCL 100 MG TABLET (FP) PO SCH (21:35)
[2022-05-06] MEDS: hydrOXYzine PAMOATE 25 MG CAPSULE (FP) PO PRN (21:35)
[2022-05-07] MEDS: IBUPROFEN 400 MG TABLET (FP) PO PRN (07:18)
[2022-05-07] MEDS: GABAPENTIN 100 MG CAPSULE PO SCH ×3 (07:19→21:48)
[2022-05-07] MEDS: FAMOTIDINE 20 MG TABLET PO SCH (10:24)
[2022-05-07] MEDS: SERTRALINE HCL 50 MG TABLET (FP) PO SCH (10:24)
[2022-05-07] MEDS: BUDESONIDE/FORMETEROL FUMARATE 160/4.5 mcg INHALER IH SCH ×2 (10:24→21:48)
[2022-05-07] MEDS: LACTULOSE 20 GM/30 ML UDC (FOR ORAL USE ONLY) PO SCH ×4 (10:24→21:48)
[2022-05-07] MEDS: LURASIDONE HCL 20 MG TABLET PO SCH (10:25)
[2022-05-07] MEDS: PRENATAL VITAMINS W/ FOLIC ACID TABLET (FP) PO SCH (10:25)
[2022-05-07] MEDS: LIDOCAINE 5% TOPICAL PATCH TP SCH (10:25)
[2022-05-07] MEDS: MONTELUKAST NA 10 MG TABLET PO SCH (21:48)
[2022-05-07] MEDS: THIAMINE HCL 100 MG TABLET (FP) PO SCH (21:48)
[2022-05-07] MEDS: LIDOCAINE PATCH REMOVAL MC SCH (21:49)
[2022-05-07] MEDS: MELATONIN 5 MG TABLETS PO SCH (21:49)
[2022-05-07] MEDS: MAG HYDROX/AL HYDROX/SIMETH 30 ML UNIT-DOSE CUP PO PRN (21:51)
[2022-05-08] MEDS: IBUPROFEN 400 MG TABLET (FP) PO PRN (06:02)
[2022-05-08] MEDS: GABAPENTIN 100 MG CAPSULE PO SCH ×3 (06:02→21:48)
[2022-05-08] MEDS: FAMOTIDINE 20 MG TABLET PO SCH (10:16)
[2022-05-08] MEDS: BUDESONIDE/FORMETEROL FUMARATE 160/4.5 mcg INHALER IH SCH ×2 (10:16→21:48)
[2022-05-08] MEDS: LURASIDONE HCL 20 MG TABLET PO SCH (10:16)
[2022-05-08] MEDS: SERTRALINE HCL 50 MG TABLET (FP) PO SCH (10:16)
[2022-05-08] MEDS: PRENATAL VITAMINS W/ FOLIC ACID TABLET (FP) PO SCH (10:16)
[2022-05-08] MEDS: LIDOCAINE 5% TOPICAL PATCH TP SCH (10:17)
[2022-05-08] MEDS: LACTULOSE 20 GM/30 ML UDC (FOR ORAL USE ONLY) PO SCH ×4 (10:18→21:47)
[2022-05-08] MEDS: MAG HYDROX/AL HYDROX/SIMETH 30 ML UNIT-DOSE CUP PO PRN (21:48)
[2022-05-08] MEDS: MELATONIN 5 MG TABLETS PO SCH (21:48)
[2022-05-08] MEDS: MONTELUKAST NA 10 MG TABLET PO SCH (21:48)
[2022-05-08] MEDS: THIAMINE HCL 100 MG TABLET (FP) PO SCH (21:48)
[2022-05-08] MEDS: LIDOCAINE PATCH REMOVAL MC SCH (21:49)
[2022-05-09] MEDS: IBUPROFEN 400 MG TABLET (FP) PO PRN (06:03)
[2022-05-09] MEDS: GABAPENTIN 100 MG CAPSULE PO SCH ×3 (06:03→21:41)
[2022-05-09] MEDS: BUDESONIDE/FORMETEROL FUMARATE 160/4.5 mcg INHALER IH SCH (10:24)
[2022-05-09] MEDS: PRENATAL VITAMINS W/ FOLIC ACID TABLET (FP) PO SCH (10:24)
[2022-05-09] MEDS: SERTRALINE HCL 50 MG TABLET (FP) PO SCH (10:24)
[2022-05-09] MEDS: LIDOCAINE 5% TOPICAL PATCH TP SCH (10:25)
[2022-05-09] MEDS: LACTULOSE 20 GM/30 ML UDC (FOR ORAL USE ONLY) PO SCH ×4 (10:25→22:27)
[2022-05-09] MEDS: FAMOTIDINE 20 MG TABLET PO SCH (10:25)
[2022-05-09] MEDS: LURASIDONE HCL 20 MG TABLET PO SCH (10:26)
[2022-05-09] MEDS: MONTELUKAST NA 10 MG TABLET PO SCH (21:41)
[2022-05-09] MEDS: THIAMINE HCL 100 MG TABLET (FP) PO SCH (21:41)
[2022-05-09] MEDS: MAG HYDROX/AL HYDROX/SIMETH 30 ML UNIT-DOSE CUP PO PRN (21:41)
[2022-05-09] MEDS: MELATONIN 5 MG TABLETS PO SCH (21:41)
[2022-05-09] MEDS: hydrOXYzine PAMOATE 25 MG CAPSULE (FP) PO PRN (21:42)
[2022-05-09] MEDS: LIDOCAINE PATCH REMOVAL MC SCH (21:42)
[2022-05-10] MEDS: IBUPROFEN 400 MG TABLET (FP) PO PRN ×2 (06:40→14:48)
[2022-05-10] MEDS: GABAPENTIN 100 MG CAPSULE PO SCH ×3 (06:41→21:34)
[2022-05-10] MEDS: PRENATAL VITAMINS W/ FOLIC ACID TABLET (FP) PO SCH (10:24)
[2022-05-10] MEDS: SERTRALINE HCL 50 MG TABLET (FP) PO SCH (10:25)
[2022-05-10] MEDS: FAMOTIDINE 20 MG TABLET PO SCH (10:26)
[2022-05-10] MEDS: ALBUTEROL SO4 HFA INHALER IH PRN (10:26)
[2022-05-10] MEDS: LIDOCAINE 5% TOPICAL PATCH TP SCH (10:26)
[2022-05-10] MEDS: LURASIDONE HCL 20 MG TABLET PO SCH (10:26)
[2022-05-10] MEDS: LACTULOSE 20 GM/30 ML UDC (FOR ORAL USE ONLY) PO SCH ×4 (10:26→21:33)
[2022-05-10] MEDS: THIAMINE HCL 100 MG TABLET (FP) PO SCH (21:33)
[2022-05-10] MEDS: MELATONIN 5 MG TABLETS PO SCH (21:33)
[2022-05-10] MEDS: MONTELUKAST NA 10 MG TABLET PO SCH (21:33)
[2022-05-10] MEDS: hydrOXYzine PAMOATE 25 MG CAPSULE (FP) PO PRN (21:34)
[2022-05-10] MEDS: LIDOCAINE PATCH REMOVAL MC SCH (21:35)
[2022-05-10] MEDS: MAG HYDROX/AL HYDROX/SIMETH 30 ML UNIT-DOSE CUP PO PRN (21:58)
[2022-05-11] MEDS: GABAPENTIN 100 MG CAPSULE PO SCH ×3 (06:39→21:42)
[2022-05-11] MEDS: IBUPROFEN 400 MG TABLET (FP) PO PRN ×2 (06:41→21:43)
[2022-05-11] MEDS: LACTULOSE 20 GM/30 ML UDC (FOR ORAL USE ONLY) PO SCH ×4 (10:25→21:42)
[2022-05-11] MEDS: PRENATAL VITAMINS W/ FOLIC ACID TABLET (FP) PO SCH (10:25)
[2022-05-11] MEDS: SERTRALINE HCL 50 MG TABLET (FP) PO SCH (10:25)
[2022-05-11] MEDS: LURASIDONE HCL 20 MG TABLET PO SCH (10:26)
[2022-05-11] MEDS: FAMOTIDINE 20 MG TABLET PO SCH (10:26)
[2022-05-11] MEDS: LIDOCAINE 5% TOPICAL PATCH TP SCH (10:27)
[2022-05-11] MEDS: RIFAXIMIN 200 MG TABLET PO SCH ×2 (15:07→21:42)
[2022-05-11] MEDS: MELATONIN 5 MG TABLETS PO SCH (21:41)
[2022-05-11] MEDS: hydrOXYzine PAMOATE 25 MG CAPSULE (FP) PO PRN (21:42)
[2022-05-11] MEDS: THIAMINE HCL 100 MG TABLET (FP) PO SCH (21:42)
[2022-05-11] MEDS: MONTELUKAST NA 10 MG TABLET PO SCH (21:42)
[2022-05-11] MEDS: LIDOCAINE PATCH REMOVAL MC SCH (23:50)
[2022-05-12] MEDS: GABAPENTIN 100 MG CAPSULE PO SCH ×3 (06:04→21:38)
[2022-05-12] MEDS: RIFAXIMIN 200 MG TABLET PO SCH ×3 (06:04→21:38)
[2022-05-12] MEDS: IBUPROFEN 400 MG TABLET (FP) PO PRN ×2 (06:04→21:39)
[2022-05-12] MEDS: PRENATAL VITAMINS W/ FOLIC ACID TABLET (FP) PO SCH (10:21)
[2022-05-12] MEDS: SERTRALINE HCL 50 MG TABLET (FP) PO SCH (10:21)
[2022-05-12] MEDS: FAMOTIDINE 20 MG TABLET PO SCH (10:21)
[2022-05-12] MEDS: LIDOCAINE 5% TOPICAL PATCH TP SCH (10:22)
[2022-05-12] MEDS: LURASIDONE HCL 20 MG TABLET PO SCH (10:22)
[2022-05-12] MEDS: LACTULOSE 20 GM/30 ML UDC (FOR ORAL USE ONLY) PO SCH ×4 (10:24→21:37)
[2022-05-12 11:05] LABS: INR 1.05 (0.83-1.09); PROTHROMBIN TIME (PATIENT) 12.1 SEC (9.7-13.0)
[2022-05-12] MEDS: ALBUTEROL SO4 HFA INHALER IH PRN (21:37)
[2022-05-12] MEDS: THIAMINE HCL 100 MG TABLET (FP) PO SCH (21:37)
[2022-05-12] MEDS: MAG HYDROX/AL HYDROX/SIMETH 30 ML UNIT-DOSE CUP PO PRN (21:38)
[2022-05-12] MEDS: MONTELUKAST NA 10 MG TABLET PO SCH (21:38)
[2022-05-12] MEDS: hydrOXYzine PAMOATE 25 MG CAPSULE (FP) PO PRN (21:41)
[2022-05-12] MEDS: MELATONIN 5 MG TABLETS PO SCH (21:42)
[2022-05-12] MEDS: LIDOCAINE PATCH REMOVAL MC SCH (21:42)
[2022-05-13] MEDS: IBUPROFEN 400 MG TABLET (FP) PO PRN (05:59)
[2022-05-13] MEDS: GABAPENTIN 100 MG CAPSULE PO SCH ×3 (06:00→21:33)
[2022-05-13] MEDS: RIFAXIMIN 200 MG TABLET PO SCH (06:00)
[2022-05-13] MEDS: PRENATAL VITAMINS W/ FOLIC ACID TABLET (FP) PO SCH (10:05)
[2022-05-13] MEDS: SERTRALINE HCL 50 MG TABLET (FP) PO SCH (10:06)
[2022-05-13] MEDS: LIDOCAINE 5% TOPICAL PATCH TP SCH (10:06)
[2022-05-13] MEDS: FAMOTIDINE 20 MG TABLET PO SCH (10:06)
[2022-05-13] MEDS: LACTULOSE 20 GM/30 ML UDC (FOR ORAL USE ONLY) PO SCH ×4 (10:07→21:33)
[2022-05-13] MEDS: LURASIDONE HCL 20 MG TABLET PO SCH (10:08)
[2022-05-13 10:42] LABS: CALCIUM 8.3 mg/dL (8.5-10.1)
[2022-05-13 10:43] LABS: ALBUMIN 3.1 g/dl (3.4-5.0); BLOOD UREA NITROGEN 16.8 mg/dL (7-18)
[2022-05-13 10:45] LABS: INR 1.09 (0.83-1.09); PROTHROMBIN TIME (PATIENT) 12.6 SEC (9.7-13.0)
[2022-05-13 10:46] LABS: CREATININE 0.7 mg/dL (0.55-1.3)
[2022-05-13 10:48] LABS: BILIRUBIN,TOTAL 0.6 mg/dL (0.2-1); TOT PROT 6.3 g/dl (6.4-8.2)
[2022-05-13] MEDS: MELATONIN 5 MG TABLETS PO SCH (21:32)
[2022-05-13] MEDS: hydrOXYzine PAMOATE 25 MG CAPSULE (FP) PO PRN (21:32)
[2022-05-13] MEDS: RIFAXIMIN 550 MG TABLET PO SCH (21:33)
[2022-05-13] MEDS: MONTELUKAST NA 10 MG TABLET PO SCH (21:33)
[2022-05-13] MEDS: THIAMINE HCL 100 MG TABLET (FP) PO SCH (21:33)
[2022-05-13] MEDS: LIDOCAINE PATCH REMOVAL MC SCH (21:33)
[2022-05-13] MEDS: MAG HYDROX/AL HYDROX/SIMETH 30 ML UNIT-DOSE CUP PO PRN (21:34)
[2022-05-14] MEDS: GABAPENTIN 100 MG CAPSULE PO SCH ×3 (06:04→21:23)
[2022-05-14] MEDS: IBUPROFEN 400 MG TABLET (FP) PO PRN ×2 (06:04→21:25)
[2022-05-14] MEDS: FAMOTIDINE 20 MG TABLET PO SCH (10:22)
[2022-05-14] MEDS: SERTRALINE HCL 50 MG TABLET (FP) PO SCH (10:22)
[2022-05-14] MEDS: PRENATAL VITAMINS W/ FOLIC ACID TABLET (FP) PO SCH (10:22)
[2022-05-14] MEDS: LACTULOSE 20 GM/30 ML UDC (FOR ORAL USE ONLY) PO SCH ×4 (10:22→21:23)
[2022-05-14] MEDS: RIFAXIMIN 550 MG TABLET PO SCH ×2 (10:23→21:23)
[2022-05-14] MEDS: LURASIDONE HCL 20 MG TABLET PO SCH (10:23)
[2022-05-14] MEDS: LIDOCAINE 5% TOPICAL PATCH TP SCH (10:24)
[2022-05-14] MEDS: MAG HYDROX/AL HYDROX/SIMETH 30 ML UNIT-DOSE CUP PO PRN (12:10)
[2022-05-14] MEDS: ALBUTEROL SO4 HFA INHALER IH PRN (21:23)
[2022-05-14] MEDS: THIAMINE HCL 100 MG TABLET (FP) PO SCH (21:23)
[2022-05-14] MEDS: LIDOCAINE PATCH REMOVAL MC SCH (21:24)
[2022-05-14] MEDS: MELATONIN 5 MG TABLETS PO SCH (21:24)
[2022-05-14] MEDS: hydrOXYzine PAMOATE 25 MG CAPSULE (FP) PO PRN (21:24)
[2022-05-14] MEDS: MONTELUKAST NA 10 MG TABLET PO SCH (21:24)
[2022-05-15] MEDS: IBUPROFEN 400 MG TABLET (FP) PO PRN ×2 (05:54→21:30)
[2022-05-15] MEDS: GABAPENTIN 100 MG CAPSULE PO SCH ×3 (05:54→21:27)
[2022-05-15 06:55] VITALS: RESP 18
[2022-05-15] MEDS: PRENATAL VITAMINS W/ FOLIC ACID TABLET (FP) PO SCH (09:53)
[2022-05-15] MEDS: SERTRALINE HCL 50 MG TABLET (FP) PO SCH (09:54)
[2022-05-15] MEDS: FAMOTIDINE 20 MG TABLET PO SCH (09:54)
[2022-05-15] MEDS: RIFAXIMIN 550 MG TABLET PO SCH ×2 (09:54→21:29)
[2022-05-15] MEDS: LIDOCAINE 5% TOPICAL PATCH TP SCH (09:55)
[2022-05-15] MEDS: LURASIDONE HCL 20 MG TABLET PO SCH (09:55)
[2022-05-15] MEDS: LACTULOSE 20 GM/30 ML UDC (FOR ORAL USE ONLY) PO SCH ×4 (09:56→21:27)
[2022-05-15] MEDS: THIAMINE HCL 100 MG TABLET (FP) PO SCH (21:27)
[2022-05-15] MEDS: hydrOXYzine PAMOATE 25 MG CAPSULE (FP) PO PRN (21:27)
[2022-05-15] MEDS: MONTELUKAST NA 10 MG TABLET PO SCH (21:27)
[2022-05-15] MEDS: LIDOCAINE PATCH REMOVAL MC SCH (21:28)
[2022-05-15] MEDS: MELATONIN 5 MG TABLETS PO SCH (21:28)
[2022-05-15] MEDS: ALBUTEROL SO4 HFA INHALER IH PRN (21:31)
[2022-05-16] MEDS: IBUPROFEN 400 MG TABLET (FP) PO PRN (05:59)
[2022-05-16] MEDS: GABAPENTIN 100 MG CAPSULE PO SCH ×3 (06:00→21:34)
[2022-05-16] MEDS: ALBUTEROL SO4 HFA INHALER IH PRN ×2 (06:00→21:37)
[2022-05-16] MEDS: PRENATAL VITAMINS W/ FOLIC ACID TABLET (FP) PO SCH (09:48)
[2022-05-16] MEDS: SERTRALINE HCL 50 MG TABLET (FP) PO SCH (09:49)
[2022-05-16] MEDS: FAMOTIDINE 20 MG TABLET PO SCH (09:49)
[2022-05-16] MEDS: LACTULOSE 20 GM/30 ML UDC (FOR ORAL USE ONLY) PO SCH ×4 (09:49→21:35)
[2022-05-16] MEDS: RIFAXIMIN 550 MG TABLET PO SCH ×2 (09:49→21:34)
[2022-05-16] MEDS: LIDOCAINE 5% TOPICAL PATCH TP SCH (09:50)
[2022-05-16] MEDS: LURASIDONE HCL 20 MG TABLET PO SCH (09:50)
[2022-05-16] MEDS: MONTELUKAST NA 10 MG TABLET PO SCH (21:34)
[2022-05-16] MEDS: MELATONIN 5 MG TABLETS PO SCH (21:34)
[2022-05-16] MEDS: THIAMINE HCL 100 MG TABLET (FP) PO SCH (21:34)
[2022-05-16] MEDS: hydrOXYzine PAMOATE 25 MG CAPSULE (FP) PO PRN (21:36)
[2022-05-16] MEDS: LIDOCAINE PATCH REMOVAL MC SCH (21:36)
[2022-05-17] MEDS: GABAPENTIN 100 MG CAPSULE PO SCH ×3 (06:02→21:32)
[2022-05-17] MEDS: RIFAXIMIN 550 MG TABLET PO SCH ×2 (09:47→21:32)
[2022-05-17] MEDS: PRENATAL VITAMINS W/ FOLIC ACID TABLET (FP) PO SCH (09:47)
[2022-05-17] MEDS: FAMOTIDINE 20 MG TABLET PO SCH (09:47)
[2022-05-17] MEDS: SERTRALINE HCL 50 MG TABLET (FP) PO SCH (09:47)
[2022-05-17] MEDS: LIDOCAINE 5% TOPICAL PATCH TP SCH (09:48)
[2022-05-17] MEDS: LACTULOSE 20 GM/30 ML UDC (FOR ORAL USE ONLY) PO SCH ×4 (09:48→21:32)
[2022-05-17] MEDS: LURASIDONE HCL 20 MG TABLET PO SCH (09:48)
[2022-05-17] MEDS: hydrOXYzine PAMOATE 25 MG CAPSULE (FP) PO PRN (21:31)
[2022-05-17] MEDS: MELATONIN 5 MG TABLETS PO SCH (21:31)
[2022-05-17] MEDS: THIAMINE HCL 100 MG TABLET (FP) PO SCH (21:32)
[2022-05-17] MEDS: MONTELUKAST NA 10 MG TABLET PO SCH (21:32)
[2022-05-17] MEDS: IBUPROFEN 400 MG TABLET (FP) PO PRN (21:33)
[2022-05-17] MEDS: LIDOCAINE PATCH REMOVAL MC SCH (21:54)
[2022-05-18] MEDS: GABAPENTIN 100 MG CAPSULE PO SCH ×3 (06:21→21:30)
[2022-05-18] MEDS: IBUPROFEN 400 MG TABLET (FP) PO PRN ×2 (06:21→21:31)
[2022-05-18] MEDS: PRENATAL VITAMINS W/ FOLIC ACID TABLET (FP) PO SCH (09:57)
[2022-05-18] MEDS: LACTULOSE 20 GM/30 ML UDC (FOR ORAL USE ONLY) PO SCH ×4 (09:57→21:30)
[2022-05-18] MEDS: LIDOCAINE 5% TOPICAL PATCH TP SCH (09:58)
[2022-05-18] MEDS: LURASIDONE HCL 20 MG TABLET PO SCH (09:58)
[2022-05-18] MEDS: SERTRALINE HCL 50 MG TABLET (FP) PO SCH (09:58)
[2022-05-18] MEDS: FAMOTIDINE 20 MG TABLET PO SCH (09:58)
[2022-05-18] MEDS: RIFAXIMIN 550 MG TABLET PO SCH ×2 (11:45→21:28)
[2022-05-18] MEDS: ALBUTEROL SO4 HFA INHALER IH PRN (21:28)
[2022-05-18] MEDS: THIAMINE HCL 100 MG TABLET (FP) PO SCH (21:28)
[2022-05-18] MEDS: hydrOXYzine PAMOATE 25 MG CAPSULE (FP) PO PRN (21:28)
[2022-05-18] MEDS: MELATONIN 5 MG TABLETS PO SCH (21:28)
[2022-05-18] MEDS: LIDOCAINE PATCH REMOVAL MC SCH (21:29)
[2022-05-18] MEDS: MONTELUKAST NA 10 MG TABLET PO SCH (21:30)
[2022-05-18] MEDS: MAG HYDROX/AL HYDROX/SIMETH 30 ML UNIT-DOSE CUP PO PRN (21:37)
[2022-05-19] MEDS: IBUPROFEN 400 MG TABLET (FP) PO PRN (05:57)
[2022-05-19] MEDS: GABAPENTIN 100 MG CAPSULE PO SCH (05:57)
[2022-05-19 06:38] VITALS: BP 103/67; PULSE 79; TEMP 98
[2022-05-19] MEDS: LURASIDONE HCL 20 MG TABLET PO SCH (09:29)
[2022-05-19] MEDS: LIDOCAINE 5% TOPICAL PATCH TP SCH (09:29)
[2022-05-19] MEDS: RIFAXIMIN 550 MG TABLET PO SCH (09:29)
[2022-05-19] MEDS: FAMOTIDINE 20 MG TABLET PO SCH (09:29)
[2022-05-19] MEDS: PRENATAL VITAMINS W/ FOLIC ACID TABLET (FP) PO SCH (09:29)
[2022-05-19] MEDS: SERTRALINE HCL 50 MG TABLET (FP) PO SCH (09:29)
[2022-05-19] MEDS: LACTULOSE 20 GM/30 ML UDC (FOR ORAL USE ONLY) PO SCH (09:29)
== END 2022-05-19 09:50 | disposition home or self-care (01) | DRG 772 ==
LOC: YASAS 13:09 → Y5N 13:10
PROVIDERS: ADMIT Allergy & Immunology; ATTEND Psychiatry & Neurology Pain Medicine
PROC: HZ42ZZZ Group Counseling for Substance Abuse Treatment, Cognitive-Behavioral (ICD-10-PCS; principal; 2022-05-03)
DX: F10.20 Alcohol dependence, uncomplicated (principal); F14.20 Cocaine dependence, uncomplicated; F17.210 Nicotine dependence, cigarettes, uncomplicated; F31.9 Bipolar disorder, unspecified; F25.9 Schizoaffective disorder, unspecified; F19.24 Other psychoactive substance dependence with psychoactive substance-induced mood disorder; I10 Essential (primary) hypertension; J44.9 Chronic obstructive pulmonary disease, unspecified; J45.20 Mild intermittent asthma, uncomplicated; M54.50 Low back pain, unspecified; G89.29 Other chronic pain; R74.01 Elevation of levels of liver transaminase levels; R94.5 Abnormal results of liver function studies
CPT/HCPCS: 36415; 71046-TC-FY; 80053; 82140; 82272; 85610; 86803; 87389

== ENCOUNTER 2023-10-31 13:35 | Inpatient (IN) | payer OTHER ==
[2023-10-31 14:07] VITALS: BMI 22.8
[2023-10-31] MEDS ORDERED: ACETAMINOPHEN 325 MG TABLET (FP) PO PRN (14:33)
[2023-10-31] MEDS ORDERED: hydrOXYzine PAMOATE 25 MG CAPSULE (FP) PO PRN (14:33)
[2023-10-31] MEDS ORDERED: guaiFENesin 600 MG TABLET.ER (FP) PO PRN (14:33)
[2023-10-31] MEDS ORDERED: BENZOCAINE/MENTHOL (CHLORASEPTIC ) LOZENGE MM PRN (14:33)
[2023-10-31] MEDS ORDERED: ONDANSETRON *ODT* 4 MG TABLET SL PRN (14:33)
[2023-10-31] MEDS ORDERED: IBUPROFEN 400 MG TABLET (FP) PO PRN (14:33)
[2023-10-31] MEDS ORDERED: BISMUTH SUBSALICYLATE 262 MG/15 ML BTL PO PRN (14:33)
[2023-10-31] MEDS ORDERED: IBUPROFEN 600 MG TABLET (FP) PO PRN (14:33)
[2023-10-31] MEDS ORDERED: BENZONATATE 200 MG CAPSULE PO PRN (14:33)
[2023-10-31] MEDS ORDERED: LOPERAMIDE HCL 2 MG CAPSULE PO PRN (14:33)
[2023-10-31] MEDS ORDERED: MAG HYDROX/AL HYDROX/SIMETH 30 ML UNIT-DOSE CUP PO PRN (14:33)
[2023-10-31] MEDS ORDERED: P-EPHED 60MG/TRIPROLIDI 2.5MG TABLET PO PRN (14:33)
[2023-10-31] MEDS ORDERED: MAGNESIUM HYDROX 2400MG/30ML ORAL SUSPENSION 30 ML CUP PO PRN (14:33)
[2023-10-31] MEDS ORDERED: NICOTINE POLACRILEX 2 MG GUM BUC PRN (14:33)
[2023-10-31] MEDS ORDERED: DICYCLOMINE HCL 10 MG CAPSULE PO PRN (14:33)
[2023-10-31] MEDS ORDERED: POLYETHYLENE GLYCOL (HEALTHYLAX) 3350 17 GM PACKET PO PRN (14:33)
[2023-10-31] MEDS ORDERED: ALBUTEROL SO4 HFA INHALER IH PRN (14:35)
[2023-10-31] MEDS: diazePAM 5 MG TABLET PO SCH (17:15)
[2023-10-31] MEDS: MONTELUKAST NA 10 MG TABLET PO SCH (22:35)
[2023-10-31] MEDS: THIAMINE 100 MG TABLET PO SCH (22:35)
[2023-10-31] MEDS: MELATONIN 5 MG TABLETS PO SCH (22:35)
[2023-10-31] MEDS: METHOCARBAMOL 500 MG TABLET PO PRN (22:35)
[2023-11-01] MEDS: diazePAM 5 MG TABLET PO SCH (05:39)
[2023-11-01] MEDS: FAMOTIDINE 20 MG TABLET PO SCH (09:14)
[2023-11-01] MEDS: FLUTICASONE/UMECLIDIN/VILANTER(200-62.5-25 TRELEGY ELLIPTA) INAHLER IH SCH (09:14)
[2023-11-01] MEDS: SERTRALINE HCL 50 MG TABLET (FP) PO SCH (09:14)
[2023-11-01] MEDS: PRENATAL VITAMINS W/ FOLIC ACID TABLET (FP) PO SCH (09:14)
[2023-11-01] MEDS: LURASIDONE HCL 20 MG TABLET PO SCH (09:25)
[2023-11-01] MEDS: NICOTINE POLACRILEX 2 MG LOZENGE BC PRN (09:26)
[2023-11-01 11:49] LABS: CHLORIDE 109 mmol/L (98-107); POTASSIUM 3.9 mmol/L (3.5-5.1); SODIUM 139 mmol/L (136-145)
[2023-11-01 12:00] LABS: ALBUMIN 3.2 g/dl (3.4-5.0); ANION GAP 2 mmol/L (4-13); CO2 28 mmol/L (21-32)
[2023-11-01 12:03] LABS: BLOOD UREA NITROGEN 21.2 mg/dL (7-18); CALCIUM 8.9 mg/dL (8.5-10.1); GLUCOSE,RANDOM 95 mg/dL (74-106)
[2023-11-01 12:06] LABS: CREATININE 0.8 mg/dL (0.55-1.3); SGOT/AST 28 U/L (15-37); SGPT/ALT 29 U/L (13-61)
[2023-11-01 12:07] LABS: BILIRUBIN,TOTAL 0.7 mg/dL (0.2-1); HEMATOCRIT 43.2 % (32.4-45.2); HEMOGLOBIN 14.8 GM/dL (10.7-15.3); MCH 31.5 pg (25.7-33.7); MCHC 34.3 g/dl (32.0-36.0); MEAN CELL VOLUME 91.9 fl (80-96); MEAN PLT VOLUME 9.1 fl (7.5-11.1); PLATELET COUNT 238 10^3/uL (134-434); RDW 15.6 % (11.6-15.6); TOT PROT 6.6 g/dl (6.4-8.2); WHITE BLOOD COUNT 6.8 K/mm3 (4.0-10.0)
[2023-11-01 12:09] LABS: ALK PHOS 140 U/L (45-117)
[2023-11-01 12:45] LABS: HIV INTERPRETATION NEGATIVE (NEGATIVE)
[2023-11-01] MEDS ORDERED: ALBUTEROL SO4 0.083% IH SOL 2.5 MG/3 ML VIAL.NEB. NEB PRN (14:46)
[2023-11-01] MEDS: diazePAM 5 MG TABLET PO PRN (22:17)
[2023-11-02] MEDS: diazePAM 5 MG TABLET PO ONE (05:23)
[2023-11-02 09:33] VITALS: BP 130/89; PULSE 83; RESP 18; TEMP 97.6
== END 2023-11-02 09:36 | disposition home or self-care (01) | DRG 774 ==
LOC: YASAS 13:35 → Y6N 15:09
PROVIDERS: ADMIT Allergy & Immunology; ATTEND Surgery
PROC: HZ2ZZZZ Detoxification Services for Substance Abuse Treatment (ICD-10-PCS; principal; 2023-10-31)
DX: F10.230 Alcohol dependence with withdrawal, uncomplicated (principal); F14.20 Cocaine dependence, uncomplicated; F17.210 Nicotine dependence, cigarettes, uncomplicated; F31.9 Bipolar disorder, unspecified; F19.280 Other psychoactive substance dependence with psychoactive substance-induced anxiety disorder; F25.9 Schizoaffective disorder, unspecified; J45.20 Mild intermittent asthma, uncomplicated; J41.0 Simple chronic bronchitis; K21.9 Gastro-esophageal reflux disease without esophagitis
CPT/HCPCS: 36415; 80053; 80305; 80307; 85027; 86780; 86803; 87389; 93005; 93010